=== PATIENT | male | born 1960 | race Caucasian/White ===

== ENCOUNTER 2022-08-25 10:20 | Outpatient (OUT) | payer OTHER, MEDICAID, SELFPAY ==
[2022-08-25 10:34] LABS: Basophils Absolute Auto 0.1 10^3/uL (0.0-0.1); Basophils Percent Auto 0.5 % (0.2-2.0); Eosinophils Absolute Auto 0.5 10^3/uL (0.0-0.7); Eosinophils Percent Auto 4.6 % (0.9-7.0); Hematocrit 46.1 % (42.0-54.0); Hemoglobin 15.4 g/dL (14.0-18.0); Immature Granulocytes Abs Auto 0.07 10^3/uL (0.00-0.03); Immature Granulocytes Pct Auto 0.7 % (0.0-0.5); Lymphocytes Absolute Auto 2.7 10^3/uL (1.2-3.8); Lymphocytes Percent Auto 26.4 % (20.5-60.0); Mean Corpuscular HGB Conc 33.4 g/dL (29.9-35.2); Mean Corpuscular Hemoglobin 28.7 pg (25.9-34.0); Mean Corpuscular Volume 85.8 fL (80.0-94.0); Mean Platelet Volume 9.5 fL (9.5-13.5); Monocytes Absolute Auto 1.1 10^3/uL (0.3-0.8); Monocytes Percent Auto 10.6 % (1.7-12.0); Neutrophils Absolute Auto 5.9 10^3/uL (1.4-6.5); Neutrophils Percent Auto 57.2 % (43.0-75.0); Platelet Count 266 10^3/uL (150-450); Red Blood Count 5.37 10^6/uL (4.70-6.10); Red Cell Distribution Width 13.1 % (11.0-15.0); White Blood Count 10.2 10^3/uL (4.0-11.0)
[2022-08-25 10:43] LABS: Estimated Average Glucose 280 mg/dL; Glycohemoglobin A1C 11.4 % (4.5-6.2)
[2022-08-25 11:43] LABS: Alanine Aminotransferase 149 U/L (16-63); Albumin Globulin Ratio 0.9; Albumin Level 3.6 g/dL (3.4-5.0); Alkaline Phosphatase 116 U/L (46-116); Anion Gap 16.8; Aspartate Amino Transferase 68 U/L (15-37); BUN Creatinine Ratio 23.8; Bilirubin Total 0.4 mg/dL (0.2-1.0); Calcium 9.6 mg/dL (8.5-10.1); Carbon Dioxide 26.7 mmol/L (21.0-32.0); Chloride 102 mmol/L (98-107); Chol HDL Ratio 4.8; Cholesterol 171 mg/dL (<=200); Estimated GFR (African America >60 (>=60); Estimated GFR (Non-African Ame >60 (>=60); Glucose 315 mg/dL (74-106); HDL Cholesterol 36 mg/dL (40-60); Potassium 4.5 mmol/L (3.5-5.1); Sodium 141 mmol/L (136-145); Total Protein 7.6 g/dL (6.4-8.2); Triglycerides 244 mg/dL (<=150); VLDL CHOLESTEROL 48.8 mg/dL
== END 2022-08-25 10:21 | disposition home or self-care (01) ==
LOC: LAB 10:20
PROVIDERS: PCP Physician Assistant; Visit Provider Physician Assistant
DX: E11.9 Type 2 diabetes mellitus without complications (principal)
CPT/HCPCS: 36415; 80053; 80061; 83036; 85025

== ENCOUNTER 2022-09-03 17:33 | Emergency (ER) | payer OTHER, MEDICAID, SELFPAY ==
[2022-09-03 17:38] VITALS: BP 160/98; PULSE 97; RESP 20; TEMP 37.1; O2SAT 98; BMI 48.1
--- NOTE | 2022-09-03 17:45 | XR_ITS ---
The [address] [address] Patient Name: RAJNI VILLARREAL MRN: [id number] date: 1960 Sex: M Assigned Patient Location: ER Current Patient Location: ER Accession/Order Number: [id number] Exam Date: 09/03/2022 18:05 Report Date: 09/03/2022 18:36 At the request of: MATHEUS ALLEN Procedure: XR foot RT min 3V PROCEDURE: XR foot RT min 3V COMPARISON: None. HISTORY: injury c/o pain FINDINGS: BONES:No fracture, acute abnormality, or significant arthropathy. SOFT TISSUES:Negative. No visible soft tissue swelling. EFFUSION:None visible. OTHER: Negative. XR/XR foot RT min 3V IMPRESSION: No acute radiographic abnormality Electronically authenticated by: PILLO FUNEZ Date: 09/03/2022 18:36
--- NOTE | 2022-09-03 18:33 | ED.LOWEXI1 ---
Documented by User: Meera Quinn 09/03/22 19:22 HPI - Extremity Injury (Lower) General Chief Complaint: Extremity Injury, Lower Stated Complaint: TOE PAIN, TOE NAIL Time Seen by Provider: 09/03/22 18:31 Source: patient Mode of arrival: Wheelchair Limitations: no limitations History of Present Illness HPI Narrative: 61 year old male presents to the ED for pain to his right foot, great toe s/p injury today. He states his family member stepped on his foot. Denies fever, chills, N/T. Rates his pain 6/10 at this time. Related Data Previous Rx's Medication Instructions Recorded cephalexin 500 mg capsule 500 mg PO TID 7 days #21 caps 09/03/22 Allergies Allergy/AdvReac Type Severity Reaction Status Date / Time No Known Drug Allergies Allergy Verified 09/03/22 17:37 Review of Systems ROS Constitutional Denies: fever or chills Cardiovascular Denies: chest pain Respiratory Denies: shortness of breath Musculoskeletal Reports: extremity pain (Right foot, great toe pain) Integumentary/Breast Denies: rash, itching or redness PFSH PFSH Social History Smoking status: Former smoker Exam Constitutional Vital Signs, click to edit/add: Last Vital Signs Temp 98.8 F 09/03/22 17:38 Pulse 97 H 09/03/22 17:38 Resp 20 09/03/22 17:38 BP 160/98 H 09/03/22 17:38 Pulse Ox 98 09/03/22 17:38 O2 Del Method Room Air 09/03/22 17:38 Common normals: no apparent distress and oriented x3 General appearance: cooperative; not in distress Chest Chest: symmetrical chest wall rise Respiratory Common normals: normal respiratory effort Effort & inspection: symmetric chest movement Cardio Common normals: regular rate Peripheral pulses: posterior tibial pulses present and dorsalis pedis pulses present Extremity Right lower extremity: foot and digits (Tenderness across top of right foot. No erythema, bruising, or swelling) Right foot and digits: inspection (Toenails abn thick, long, discolored; consistent with fungal changes.) and neurovascular exam (Distal sensation intact.) Course Vital Signs Vital signs: Vital Signs Temperature 98.8 F 09/03/22 17:38 Pulse Rate 97 H 09/03/22 17:38 Respiratory Rate 20 09/03/22 17:38 Blood Pressure 160/98 H 09/03/22 17:38 Pulse Oximetry 98 09/03/22 17:38 Oxygen Delivery Method Room Air 09/03/22 17:38 Temperature 98.8 F 09/03/22 17:38 Pulse Rate 97 H 09/03/22 17:38 Respiratory Rate 20 09/03/22 17:38 Blood Pressure 160/98 H 09/03/22 17:38 Pulse Oximetry 98 09/03/22 17:38 Oxygen Delivery Method Room Air 09/03/22 17:38 MDM - Extremity Injury (Lower) MDM Narrative Medical decision making narrative: X-ray of the right foot was negative for acute findings. He is concerned he is developing an infection to the distal great toe due to the injury. A prescription was provided for Keflex. No paronychia was noted. Pt was told previously to follow up with podiatry regarding his nail issues; he has not been able to follow up. He was encouraged to follow up with his pcp and podiatry for a recheck, further evaluation and treatment. Imaging Data X-ray foot: Radiologist's impression: PROCEDURE: XR foot RT min 3V ? COMPARISON: None. ? HISTORY: injury c/o pain ? FINDINGS: BONES:No fracture, acute abnormality, or significant arthropathy. SOFT TISSUES:Negative. No visible soft tissue swelling. EFFUSION:None visible. OTHER: Negative. ? XR/XR foot RT min 3V IMPRESSION: ? No acute radiographic abnormality ? ? Electronically authenticated by: GARETT FUNEZ ? Date: 09/03/2022? 18:36 Discharge Plan Discharge Chief Complaint: Extremity Injury, Lower Clinical Impression: Contusion of foot Patient Disposition: Home, Self-Care Time of Disposition Decision: 18:47 Condition: Good Mode of Transportation: Private Vehicle Prescriptions / Home Meds: New cephalexin 500 mg capsule 500 mg PO TID 7 Days Qty: 21 0RF Instructions: Cellulitis (ED), Foot Contusion (ED) Stand Alone Forms: Portal Instructions Referrals: Misbah Lujan MD [Physician] - 1 week Raul Kline [Primary Care Provider] - 1 week Discharge Date/Time: 09/03/22 19:03 Documented by User: Gene Sharpe MD 09/03/22 19:52 HPI - Extremity Injury (Lower) General Chief Complaint: Extremity Injury, Lower Stated Complaint: TOE PAIN, TOE NAIL Time Seen by Provider: 09/03/22 18:31 Related Data Previous Rx's Medication Instructions Recorded cephalexin 500 mg capsule 500 mg PO TID 7 days #21 caps 09/03/22 Allergies Allergy/AdvReac Type Severity Reaction Status Date / Time No Known Drug Allergies Allergy Verified 09/03/22 17:37 PFSH PFSH Social History Smoking status: Former smoker Exam Constitutional Vital Signs, click to edit/add: Last Vital Signs Temp 98.8 F 09/03/22 17:38 Pulse 97 H 09/03/22 17:38 Resp 20 09/03/22 17:38 BP 160/98 H 09/03/22 17:38 Pulse Ox 98 09/03/22 17:38 O2 Del Method Room Air 09/03/22 17:38 Course Vital Signs Vital signs: Vital Signs Temperature 98.8 F 09/03/22 17:38 Pulse Rate 97 H 09/03/22 17:38 Respiratory Rate 20 09/03/22 17:38 Blood Pressure 160/98 H 09/03/22 17:38 Pulse Oximetry 98 09/03/22 17:38 Oxygen Delivery Method Room Air 09/03/22 17:38 Temperature 98.8 F 09/03/22 17:38 Pulse Rate 97 H 09/03/22 17:38 Respiratory Rate 20 09/03/22 17:38 Blood Pressure 160/98 H 09/03/22 17:38 Pulse Oximetry 98 09/03/22 17:38 Oxygen Delivery Method Room Air 09/03/22 17:38 MDM - Extremity Injury (Lower) MDM Narrative Medical decision making narrative: X-ray of the right foot was negative for acute findings. He is concerned he is developing an infection to the distal great toe due to the injury. A prescription was provided for Keflex. No paronychia was noted. Pt was told previously to follow up with podiatry regarding his nail issues; he has not been able to follow up. He was encouraged to follow up with his pcp and podiatry for a recheck, further evaluation and treatment. I, Dr Sharpe, have reviewed the above progress note and course of action in the ER; agree with the above. I have personally seen and evaluated this patient, gone over history and physical, and discussed disposition and treatment plan with the patient. Discharge Plan Discharge Chief Complaint: Extremity Injury, Lower Clinical Impression: Contusion of foot Patient Disposition: Home, Self-Care Time of Disposition Decision: 18:47 Condition: Good Mode of Transportation: Private Vehicle Prescriptions / Home Meds: New cephalexin 500 mg capsule 500 mg PO TID 7 Days Qty: 21 0RF Instructions: Cellulitis (ED), Foot Contusion (ED) Stand Alone Forms: Portal Instructions Referrals: Misbah Lujan MD [Physician] - 1 week Raul Kline [Primary Care Provider] - 1 week Discharge Date/Time: 09/03/22 19:03
== END 2022-09-03 19:03 | disposition home or self-care (01) ==
PROVIDERS: Emergency Provider Emergency Medicine; PCP Physician Assistant
DX: S90.31XA Contusion of right foot, initial encounter (principal); Z87.891 Personal history of nicotine dependence; W50.0XXA Accidental hit or strike by another person, initial encounter
CPT/HCPCS: 73630; 99283

== ENCOUNTER 2022-09-12 08:22 | Emergency (ER) | payer OTHER, MEDICAID, SELFPAY ==
[2022-09-12 08:26] VITALS: BP 191/114; PULSE 90; RESP 24; TEMP 36.6; O2SAT 96; BMI 48.1
--- NOTE | 2022-09-12 08:41 | CT_ITS ---
[address] [address] Patient Name: RAJNI VILLARREAL MRN: [id number] date: 1960 Sex: M Assigned Patient Location: ER Current Patient Location: Accession/Order Number: [id number] Exam Date: 09/12/2022 09:42 Report Date: 09/12/2022 10:20 At the request of: MATHEUS ALLEN Procedure: CT abdomen pelvis w con EXAMINATION: CT abdomen pelvis w con HISTORY: abd pain ; acute upper abdominal pain COMPARISON: No relevant comparison available. TECHNIQUE: Axial, Coronal, and Sagittal images were obtained without and/or with IV contrast as indicated by examination type. Dose reduction techniques were achieved by using automated exposure control and/or adjustment of mA and/or kV according to patient size and/or use of iterative reconstruction technique. FINDINGS: LUNG BASES: No visible pulmonary or pleural disease. LIVER: Fatty infiltration of liver. There is BILIARY: No dilatation or calcification. PANCREAS: No lesion, fluid collection, or abnormal duct dilatation. SPLEEN: No enlargement or focal lesion. ADRENALS: No mass or enlargement. KIDNEYS: A few small cysts within left kidney. No mass, obstruction, or calcification. BOWEL/MESENTERY: Several fluid-filled mildly distended loops of small bowel, up to 2.8 cm in diameter, within anterior pelvis with mild surrounding edema. No wall thickening or appreciable obstruction. Trace amount of free fluid scattered within the mesentery, likely edematous. No free air. Prior sigmoid resection and anastomosis. AORTA/VASCULAR: No aneurysm or dissection. RETROPERITONEUM: No mass or adenopathy. LYMPH NODES: No adenopathy. URINARY BLADDER: No visible focal wall thickening, lesion, or calculus. PELVIC ORGANS: No visible mass. Pelvic organs appropriate for patient age. ABDOMINAL WALL: No mass or hernia. BONES: No bony lesion or fracture. OTHER: Negative. CT/CT abdomen pelvis w con IMPRESSION: 1.Suspect enteritis or local ileus involving middistal small bowel within the anterior pelvis. No appreciable obstruction or mass. 2.Marked fatty infiltration of liver. Electronically authenticated by: LIZ SMART Date: 09/12/2022 10:20
--- NOTE | 2022-09-12 08:42 | ED.GENADUL1 ---
HPI - General Adult General Chief complaint: Abdominal Pain Stated complaint: ABDOMINAL PAIN Time Seen by Provider: 09/12/22 08:39 Source: patient Mode of arrival: ambulance Limitations: no limitations History of Present Illness HPI narrative: Patient is a 61-year-old male who is presenting to the Emergency Room with chief complaint of diffuse abdominal pain ongoing since yesterday morning. Patient has been passing flatulence and having soft stool, the patient's pain has been constant, but the pain wave 7 intermittent since yesterday morning/afternoon. Patient had significant abdominal surgery, patient has multiple scars to his abdomen. Patient has a history of diabetes. Patient was at home by himself. No fall, no trauma. No fever or chills. No chest pain or shortness of breath. No other acute complaints. . Patient came in by EMS. Patient was a home by himself. . All systems are negative except as noted/marked. All systems reviewed and otherwise negative. . Nurses note and vital signs reviewed and patient is not hypoxic. General: The patient appears well and in no apparent distress. Patient is resting comfortably on cart. Patient is not toxic, lethargic, or listless Skin: Warm, dry, no pallor noted. There is no rash noted. No petechiae, purpura. Head: Normocephalic, atraumatic Eye: Normal conjunctiva, no drainage, EOMI. PERRL Ears, Nose, Mouth, and Throat: oral mucosa is moist. Nares patent. Mouth without vesicles. Cardiovascular: Regular Rate and Rhythm, no murmur, gallop, rub Respiratory: Patient is in no distress, no accessory muscle use, lungs are clear to auscultation, no wheezing, rales or rhonchi Back: non-tender, no CVA tenderness bilaterally to percussion. No CT LS midline pain GI: soft, Morbidly obese, patient has significant abdominal scars, including 1 large midline abdominal scar; diffuse moderate no tenderness to palpation, No flank pain bilateral, no pulsatile masses appreciated. No rebound, mild guarding, NO rigidity noted. No flank pain bilateral, No distention Musculoskeletal: Patient has full range of motion of all of the extremities, no motor, sensory, or focal neurological deficits Neurological: A&O x3, normal speech Psychiatric: Cooperative Related Data Home Medications Medication Instructions Recorded Confirmed allopurinol 100 mg tablet 100 mg PO Q12H 09/12/22 09/12/22 dulaglutide 0.75 mg/0.5 mL 0.75 mg subcut .weekly 09/12/22 09/12/22 subcutaneous pen injector ([facility]) gabapentin 600 mg tablet 600 mg PO TID 09/12/22 09/12/22 lisinopril 10 mg tablet 10 mg PO DAILY 09/12/22 09/12/22 meloxicam 15 mg tablet 15 mg PO DAILY 09/12/22 09/12/22 metformin 1,000 mg tablet 1,000 mg PO BID 09/12/22 09/12/22 oxybutynin chloride 15 mg 15 mg PO DAILY 09/12/22 09/12/22 tablet,extended release 24 hr Previous Rx's Medication Instructions Recorded cephalexin 500 mg capsule 500 mg PO TID 7 days #21 caps 09/03/22 dicyclomine 20 mg tablet 20 mg PO TID PRN abdominal pain #7 09/12/22 tabs ondansetron 4 mg disintegrating 4 mg PO Q4H PRN nausea and 09/12/22 tablet vomiting 3 days #6 tabs Allergies Allergy/AdvReac Type Severity Reaction Status Date / Time No Known Drug Allergies Allergy Verified 09/03/22 17:37 PFSH PFSH Social History Smoking status: Former smoker Exam Constitutional Vital Signs, click to edit/add: Last Vital Signs Temp 97.8 F 09/12/22 08:26 Pulse 78 09/12/22 12:02 Resp 16 09/12/22 12:02 BP 139/108 H 09/12/22 12:02 Pulse Ox 95 09/12/22 12:02 O2 Del Method Room Air 09/12/22 12:02 Course Vital Signs Vital signs: Vital Signs Temperature 97.8 F 09/12/22 08:26 Pulse Rate 90 09/12/22 08:26 Respiratory Rate 24 09/12/22 08:26 Blood Pressure 191/114 H 09/12/22 08:26 Pulse Oximetry 96 09/12/22 08:26 Oxygen Delivery Method Room Air 09/12/22 08:26 Temperature 97.8 F 09/12/22 08:26 Pulse Rate 78 09/12/22 12:02 Respiratory Rate 16 09/12/22 12:02 Blood Pressure 139/108 H 09/12/22 12:02 Pulse Oximetry 95 09/12/22 12:02 Oxygen Delivery Method Room Air 09/12/22 12:02 Medical Decision Making MDM Narrative Medical decision making narrative: Patient's lab work, abdominal CT shows no significant findings or changes. Patient feels better after medication given and IV fluids. Patient will follow-up with PCP. Patient had educational speech at bedside on scar tissue, possible adhesions, future obstruction. Patient had mentioned the surgeon wanted to go back into his abdomen because he had significant amount of scar tissue and they wanted to break the adhesions. Patient had this educated and discussed with him and explained to him again, patient appears to understand. Patient states his surgeon and gastrointestinal physicians are at [facility], he will call in the follow-up. Patient sent home with Zofran and Bentyl use. No questions at discharge. She did official report for CT of the abdomen and pelvis, suspect enteritis, questionable ileus, education and ileus and discharge papers were given to patient discussing ileus. Patient will continue increase fluids only this weekend and use medication as needed. Patient is aware of no bowel movement or passing gas within 12-24 hours, patient would need to return to the Emergency Room. Patient understands discharge instructions and plan Medical Records Medical records reviewed: Yes I reviewed the patient's medical records Lab Data Lab results reviewed: Yes I reviewed the patient's lab results Labs: Lab Results 09/12/22 09/12/22 Range/Units 08:55 10:05 WBC 12.3 H (4.0-11.0) 10^3/uL RBC 5.52 (4.70-6.10) 10^6/uL Hgb 15.8 (14.0-18.0) g/dL Hct 47.1 (42.0-54.0) % MCV 85.3 (80.0-94.0) fL MCH 28.6 (25.9-34.0) pg MCHC 33.5 (29.9-35.2) g/dL RDW 12.8 (11.0-15.0) % Plt Count 272 (150-450) 10^3/uL MPV 9.4 L (9.5-13.5) fL Neut % (Auto) 71.7 (43.0-75.0) % Lymph % (Auto) 14.9 L (20.5-60.0) % [place] % (Auto) 9.4 (1.7-12.0) % Eos % (Auto) 3.2 (0.9-7.0) % Baso % (Auto) 0.3 (0.2-2.0) % Neut # (Auto) 8.8 H (1.4-6.5) 10^3/uL Lymph # (Auto) 1.8 (1.2-3.8) 10^3/uL [place] # (Auto) 1.2 H (0.3-0.8) 10^3/uL Eos # (Auto) 0.4 (0.0-0.7) 10^3/uL Baso # (Auto) 0.0 (0.0-0.1) 10^3/uL Abs Immat Gran (auto) 0.06 H (0.00-0.03) 10^3/uL Imm/Tot Granulo (auto) 0.5 (0.0-0.5) % Sodium 136 (136-145) mmol/L Potassium 4.2 (3.5-5.1) mmol/L Chloride 101 (98-107) mmol/L Carbon Dioxide 29.4 (21.0-32.0) mmol/L Anion Gap 9.8 BUN 23.0 H (7.0-18.0) mg/dL Creatinine 0.83 (0.70-1.30) mg/dL Est GFR ( Amer) >60 (>=60) Est GFR (Non-Af Amer) >60 (>=60) BUN/Creatinine Ratio 27.7 Glucose 331 H (74-106) mg/dL Lactate 1.8 (0.4-2.0) mmol/L Calcium 8.8 (8.5-10.1) mg/dL Total Bilirubin 0.5 (0.2-1.0) mg/dL AST 89 H (15-37) U/L ALT 180 H (16-63) U/L Alkaline Phosphatase 107 (46-116) U/L Troponin I High Sens 12.3 (4.0-76.1) pg/mL Total Protein 7.4 (6.4-8.2) g/dL Albumin 3.5 (3.4-5.0) g/dL Globulin 3.9 g/dL Albumin/Globulin Ratio 0.9 Lipase 141.0 (73.0-393.0) U/L Urine Color Yellow (YELLOW) Urine Clarity Clear (CLEAR) Urine pH 7.0 (5.0-9.0) Ur Specific [place] 1.010 (1.005-1.025) Urine Protein Negative (NEG/TRACE) mg/dL Urine Glucose (UA) >=1000 A (NEGATIVE) mg/dL Urine Ketones Negative (NEGATIVE) mg/dL Urine Occult Blood Negative (NEGATIVE) Urine Nitrite Negative (NEGATIVE) Urine Bilirubin Negative (NEGATIVE) Urine Urobilinogen 0.2 (0.2-1.0) EU/dL Ur Leukocyte Esterase Negative (NEGATIVE) ECG Data Attestation: I personally reviewed and interpreted this ECG as follows: Interpretation: EKG interpretation. Normal sinus rhythm at 90 beats a minute. Normal axis deviation. No acute ST elevation, no acute ectopy. QTC of 430. Artifact noted. Discharge Plan Discharge Chief Complaint: Abdominal Pain Clinical Impression: Enteritis, Abdominal pain Patient Disposition: Home, Self-Care Condition: Good Prescriptions / Home Meds: New dicyclomine 20 mg tablet 20 mg PO TID PRN (Reason: abdominal pain) Qty: 7 0RF ondansetron 4 mg tablet,disintegrating 4 mg PO Q4H PRN (Reason: nausea and vomiting) 3 Days Qty: 6 0RF No Action cephalexin 500 mg capsule 500 mg PO TID 7 Days Qty: 21 0RF allopurinol 100 mg tablet 100 mg PO Q12H Trulicity 0.75 mg/0.5 mL pen injector 0.75 mg SUBCUT .weekly gabapentin 600 mg tablet 600 mg PO TID metformin 1,000 mg tablet 1,000 mg PO BID oxybutynin chloride 15 mg tablet extended release 24hr 15 mg PO DAILY meloxicam 15 mg tablet 15 mg PO DAILY lisinopril 10 mg tablet 10 mg PO DAILY Instructions: Abdominal Pain (ED), Enteritis (ED) Additional Instructions: Increase fluids for the next few days. Education on ileus was given to you for educational purposes only. Increase fluids. We had a discussion about scar tissue secondary to abdominal surgeries and prevention of obstruction in the future. Follow-up with your surgeon and gastrointestinal physicians. Use Zofran and Bentyl needed for nausea and belly cramping Stand Alone Forms: Portal Instructions Referrals: Raul Kline [Primary Care Provider] - 1 week
[2022-09-12 09:03] LABS: Basophils Percent Auto 0.3 % (0.2-2.0); Eosinophils Absolute Auto 0.4 10^3/uL (0.0-0.7); Eosinophils Percent Auto 3.2 % (0.9-7.0); Hematocrit 47.1 % (42.0-54.0); Hemoglobin 15.8 g/dL (14.0-18.0); Immature Granulocytes Abs Auto 0.06 10^3/uL (0.00-0.03); Immature Granulocytes Pct Auto 0.5 % (0.0-0.5); Lymphocytes Absolute Auto 1.8 10^3/uL (1.2-3.8); Lymphocytes Percent Auto 14.9 % (20.5-60.0); Mean Corpuscular HGB Conc 33.5 g/dL (29.9-35.2); Mean Corpuscular Hemoglobin 28.6 pg (25.9-34.0); Mean Corpuscular Volume 85.3 fL (80.0-94.0); Mean Platelet Volume 9.4 fL (9.5-13.5); Monocytes Absolute Auto 1.2 10^3/uL (0.3-0.8); Monocytes Percent Auto 9.4 % (1.7-12.0); Neutrophils Absolute Auto 8.8 10^3/uL (1.4-6.5); Neutrophils Percent Auto 71.7 % (43.0-75.0); Platelet Count 272 10^3/uL (150-450); Red Blood Count 5.52 10^6/uL (4.70-6.10); Red Cell Distribution Width 12.8 % (11.0-15.0); White Blood Count 12.3 10^3/uL (4.0-11.0)
[2022-09-12] MEDS: ONDANSETRON PF 4 MG/2 ML VIAL IV (09:17)
[2022-09-12] MEDS: 0.9 % SODIUM CHLORIDE 1,000 ML 999 ML IV (09:17)
[2022-09-12 09:24] LABS: Alanine Aminotransferase 180 U/L (16-63); Albumin Globulin Ratio 0.9; Albumin Level 3.5 g/dL (3.4-5.0); Alkaline Phosphatase 107 U/L (46-116); Anion Gap 9.8; Aspartate Amino Transferase 89 U/L (15-37); BUN Creatinine Ratio 27.7; Bilirubin Total 0.5 mg/dL (0.2-1.0); Calcium 8.8 mg/dL (8.5-10.1); Carbon Dioxide 29.4 mmol/L (21.0-32.0); Chloride 101 mmol/L (98-107); Estimated GFR (African America >60 (>=60); Estimated GFR (Non-African Ame >60 (>=60); Globulin 3.9 g/dL; Glucose 331 mg/dL (74-106); Potassium 4.2 mmol/L (3.5-5.1); Sodium 136 mmol/L (136-145); Total Protein 7.4 g/dL (6.4-8.2); Troponin I High Sensitivity 12.3 pg/mL (4.0-76.1)
[2022-09-12] MEDS: MORPHINE SULFATE 4 MG/ML VIAL 8 MG IV (09:29)
[2022-09-12 10:08] VITALS: BP 162/91; PULSE 79; RESP 16; O2SAT 94
[2022-09-12 11:00] VITALS: PULSE 82; RESP 16; O2SAT 96
[2022-09-12 11:13] LABS: Lactate/Lactic Acid 1.8 mmol/L (0.4-2.0)
--- NOTE | 2022-09-12 11:48 | ECG_ITS ---
The [facility] Test Date: 2022-09-12 Pat Name: RAJNI VILLARREAL Department: Room: - Gender: Male Eyeletter: : 1960 Requested By: Order Number: [id number] Reading MD: DEEPA DOUGLASS Measurements Intervals [place] Rate: 90 P: 35 NM: 184 QRS: 60 QRSD: 102 T: 40 QT: 382 QTc: 430 Interpretive Statements 1100 Sinus rhythm 8102 Low QRS voltage in chest leads 9120 atypical ECG No previous ECG available for comparison Electronically Signed On 09-14-2022 18:21:41 EDT by DEEPA DOUGLASS
[2022-09-12 12:02] VITALS: BP 139/108; PULSE 78; RESP 16; O2SAT 95
[2022-09-12 12:24] LABS: Bilirubin Urine NEGATIVE (NEGATIVE); Blood Urine NEGATIVE (NEGATIVE); Clarity Urine CLEAR (CLEAR); Color Urine YELLOW (YELLOW); Glucose Urine UA >=1000 mg/dL (NEGATIVE); Ketones Urine NEGATIVE (NEGATIVE); Leukocyte Esterase Urine NEGATIVE (NEGATIVE); Nitrite Urine NEGATIVE (NEGATIVE); Protein Urine NEGATIVE (NEG/TRACE); Urobilinogen Urine 0.2 EU/dL (0.2-1.0)
[2022-09-12 12:31] LABS: Bacteria Urine NONE SEEN #/HPF (NONE SEEN); Cast Seen? NONE SEEN #/LPF (NONE SEEN); Crystals Seen? None Seen #/HPF (None Seen); Mucus Urine NONE SEEN (NONE SEEN); RBC Urine 0-2 #/HPF (0-2); Squamous Epithelial Cell Urine RARE #/LPF (NONE/RARE); WBC Urine NONE SEEN #/HPF (NONE SEEN)
== END 2022-09-12 12:43 | disposition home or self-care (01) ==
PROVIDERS: Emergency Provider Emergency Medicine; PCP Physician Assistant
DX: K52.9 Noninfective gastroenteritis and colitis, unspecified (principal); R10.9 Unspecified abdominal pain; E11.9 Type 2 diabetes mellitus without complications; Z79.4 Long term (current) use of insulin; Z79.84 Long term (current) use of oral hypoglycemic drugs; Z79.899 Other long term (current) drug therapy; Z87.891 Personal history of nicotine dependence
CPT/HCPCS: 36415; 74177; 80053; 81001; 83605; 83690; 84484; 85025; 93005; 96374; 96375; 99285; Q9967

== ENCOUNTER 2022-10-14 13:24 | Outpatient (OUT) | payer OTHER, MEDICAID, SELFPAY ==
--- NOTE | 2022-10-14 13:33 | XR_ITS ---
The [address] [address] Patient Name: RAJNI VILLARREAL MRN: [id number] date: 1960 Sex: M Assigned Patient Location: [facility] Current Patient Location: [facility] Accession/Order Number: [id number] Exam Date: 10/14/2022 13:40 Report Date: 10/14/2022 14:11 At the request of: DANIELA PETER Procedure: XR shoulder RT min 2V PROCEDURE: XR shoulder RT min 2V HISTORY: Right shoulder Pain M25.511 ; chronic right shoulder pain and limited range of motion, right hand swelling COMPARISON: None. FINDINGS: BONES:Degenerative osteophytes along the inferior articular margin of the humeral head and glenoid. Suspect mild joint space narrowing. Mild degenerative changes acromioclavicular joint. No fracture, dislocation, bone lesion. SOFT TISSUES:No visible soft tissue swelling. EFFUSION:None visible. OTHER: Negative. XR/XR shoulder RT min 2V IMPRESSION: 1. No acute bone abnormality. 2. Moderate degenerative changes of the glenohumeral joints favoring osteoarthritis. 2. Mild degenerative change of the acromioclavicular joint which may predispose to rotator cuff injury. Electronically authenticated by: LIZ SMART Date: 10/14/2022 14:11
== END 2022-10-14 13:25 | disposition home or self-care (01) ==
LOC: RAD 13:26
PROVIDERS: PCP Physician Assistant; Visit Provider Physician Assistant
DX: M25.511 Pain in right shoulder (principal)
CPT/HCPCS: 73030

== ENCOUNTER 2022-11-13 13:27 | Outpatient (OUT) | payer MEDICAID, SELFPAY ==
--- NOTE | 2022-11-13 13:35 | MR_ITS ---
[place] [id number] Patient Name: RAJNI VILLARREAL MRN: [id number] date: 1960 Sex: M Assigned Patient Location: [facility] Current Patient Location: [facility] Accession/Order Number: [id number] Exam Date: 11/13/2022 13:50 Report Date: 11/13/2022 17:30 At the request of: DANIELA PETER Procedure: MR shoulder RT wo con MR shoulder RT wo con, 11/13/2022 1:50 PM EDT INDICATION: Right Shoulder Pain M25.511 COMPARISON: X-ray of right shoulder dated 10/14/2022 TECHNIQUE: Multiplanar and multisequential MR images of the right shoulder were obtained without contrast. FINDINGS: There are moderate hypertrophic degenerative changes of AC joint. There is no os acromiale. No Hill-Sachs is noted. No acute fracture or dislocation is noted. Enthesopathy cysts at the insertion of the supraspinatus to greater tuberosity is noted. The quadrilateral space and supraspinous notch are unremarkable. The T2 prolongation within the insertional portions of supraspinatus, infraspinatus, subscapularis may suggest tendinosis. The long head of biceps shows intra-articular tendinosis Moderate atrophy of teres minor. No other fatty muscle atrophy is noted. The labrum and right glenohumeral joint show moderate to severe degenerative changes. There is trace intra articular joint effusion. MR/MR shoulder RT wo con IMPRESSION: Supraspinatus, infraspinatus and subscapularis insertional tendinosis. No high-grade tear. Tendinosis of the intra-articular portion of long head of biceps. Moderate to severe degenerative changes of right glenohumeral joint. Moderate atrophy of teres minor. Electronically authenticated by: ANGELLA DUQUE Date: 11/13/2022 17:30
--- NOTE | 2022-11-13 13:36 | XR_ITS ---
The [address] [address] Patient Name: RAJNI VILLARREAL MRN: [id number] date: 1960 Sex: M Assigned Patient Location: [facility] Current Patient Location: [facility] Accession/Order Number: [id number] Exam Date: 11/13/2022 13:40 Report Date: 11/13/2022 13:56 At the request of: DANIELA PETER Procedure: XR foreign body eye EXAMINATION: XR foreign body eye HISTORY: Foreign Body Eye COMPARISON: No relevant comparison available. FINDINGS: ORBITS: Negative for a metallic foreign body. OTHER: Negative. XR/XR foreign body eye IMPRESSION: 1. No metallic foreign body within the orbits. Electronically authenticated by: LIZ SMART Date: 11/13/2022 13:56
== END 2022-11-13 13:28 | disposition home or self-care (01) ==
LOC: RAD 13:28
PROVIDERS: PCP Physician Assistant; Visit Provider Physician Assistant
DX: M25.511 Pain in right shoulder (principal); M51.26 Other intervertebral disc displacement, lumbar region; M77.8 Other enthesopathies, not elsewhere classified; M75.21 Bicipital tendinitis, right shoulder; M62.511 Muscle wasting and atrophy, not elsewhere classified, right shoulder
CPT/HCPCS: 70030; 73221

== ENCOUNTER 2022-11-21 10:10 | Outpatient (OUT) | payer MEDICAID, SELFPAY ==
[2022-11-21 10:45] LABS: Basophils Absolute Auto 0.1 10^3/uL (0.0-0.1); Basophils Percent Auto 0.6 % (0.2-2.0); Eosinophils Absolute Auto 0.5 10^3/uL (0.0-0.7); Eosinophils Percent Auto 5.6 % (0.9-7.0); Hemoglobin 14.9 g/dL (14.0-18.0); Immature Granulocytes Abs Auto 0.02 10^3/uL (0.00-0.03); Immature Granulocytes Pct Auto 0.2 % (0.0-0.5); Lymphocytes Absolute Auto 2.3 10^3/uL (1.2-3.8); Lymphocytes Percent Auto 26.8 % (20.5-60.0); Mean Corpuscular HGB Conc 33.1 g/dL (29.9-35.2); Mean Corpuscular Hemoglobin 28.9 pg (25.9-34.0); Mean Corpuscular Volume 87.2 fL (80.0-94.0); Mean Platelet Volume 9.6 fL (9.5-13.5); Monocytes Percent Auto 11.3 % (1.7-12.0); Neutrophils Absolute Auto 4.8 10^3/uL (1.4-6.5); Neutrophils Percent Auto 55.5 % (43.0-75.0); Platelet Count 252 10^3/uL (150-450); Red Blood Count 5.16 10^6/uL (4.70-6.10); Red Cell Distribution Width 12.9 % (11.0-15.0); White Blood Count 8.6 10^3/uL (4.0-11.0)
[2022-11-21 10:52] LABS: Alanine Aminotransferase 94 U/L (16-63); Albumin Globulin Ratio 0.9; Albumin Level 3.5 g/dL (3.4-5.0); Alkaline Phosphatase 90 U/L (46-116); Anion Gap 10.1; Aspartate Amino Transferase 64 U/L (15-37); BUN Creatinine Ratio 21.6; Bilirubin Total 0.4 mg/dL (0.2-1.0); Carbon Dioxide 29.8 mmol/L (21.0-32.0); Chloride 101 mmol/L (98-107); Chol HDL Ratio 4.8; Cholesterol 181 mg/dL (<=200); Estimated GFR (African America >60 (>=60); Estimated GFR (Non-African Ame >60 (>=60); Globulin 4.1 g/dL; Glucose 223 mg/dL (74-106); HDL Cholesterol 38 mg/dL (40-60); Potassium 3.9 mmol/L (3.5-5.1); Sodium 137 mmol/L (136-145); Total Protein 7.6 g/dL (6.4-8.2); Triglycerides 242 mg/dL (<=150); VLDL CHOLESTEROL 48.4 mg/dL
[2022-11-21 11:06] LABS: Estimated Average Glucose 223 mg/dL; Glycohemoglobin A1C 9.4 % (4.5-6.2)
== END 2022-11-21 10:11 | disposition home or self-care (01) ==
LOC: LAB 10:12
PROVIDERS: PCP Physician Assistant; Visit Provider Physician Assistant
DX: E11.9 Type 2 diabetes mellitus without complications (principal)
CPT/HCPCS: 36415; 80053; 80061; 83036; 85025

== ENCOUNTER 2023-02-26 12:46 | Outpatient (OUT) | payer MEDICAID, SELFPAY ==
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
--- NOTE | 2023-02-26 12:49 | VEIN_ITS ---
Patient Name: RAJNI VILLARREAL MR#: [id number] : 1960 Exam Date: 02/26/2023 Ordering Doctor: MR. DANIELA PETER PA-C RADIOLOGY REPORT PROCEDURE: VC EXT VENOUS REFLUX DANNIE LMTD COMPARISON: None. INDICATIONS: I83.813 Bilateral painful varicose veins TECHNIQUE: Duplex imaging of the lower extremity to assess the deep and superficial venous system for the presence of deep or superficial venous incompetence and to document the location and severity of disease. The study includes evaluation of the great saphenous vein (GSV), anterior accessory saphenous vein (AASV) and small saphenous vein (SSV). Patient scanned in reverse Trendelenburg and standing. FINDINGS: RIGHT LOWER EXTREMITY: Saphenofemoral Junction Reflux: Yes 9.5mm 2.5 sec GSV: Diam (mm) Reflux/ Time (sec) Proximal Thigh 6.9 Yes 1.5 Mid Thigh 5.5 Yes 0.7 Distal Thigh 4.2 Yes 1.9 Prox Calf 3.6 Yes 1.0 Mid Calf 2.3 Yes 0.5 Saphenopopliteal Junction Reflux: 7.0mm Yes 1.2 SSV: Proximal Calf 6.7 Yes 1.5 Mid Calf 4.5 Yes 1.1 AASV: Proximal Thigh 3.5 No Mid Thigh 2.3 No Distal Thigh Thrombi: No acute or chronic thrombus visualized Compressibility: Normal Flow: Normal Preforator: Dist/med calf 2.3mm with 0s reflux. Tech Note: Incompetent GSV. Patent varicose vein mid/med calf 4.0mm with 1.6s reflux. Patent varicose vein medial knee 3.0mm with 0.7s reflux. Patent varicose vein mid/med thigh 4.9mm with 0.9s reflux. LEFT LOWER EXTREMITY: Saphenofemoral Junction Reflux: Yes 16.0 mm 2.6 sec GSV: Diam (mm) Reflux/Time (sec) Proximal Thigh 12.0 Yes 3.0 Mid Thigh 9.2 Yes 3.0 Distal Thigh 9.4 Yes 2.6 Prox Calf 9.5 Yes 1.2 Mid Calf 3.4 Yes 0.8 Saphenopopliteal Junction Relux: 7.4 mm Yes 1.7 SSV: Proximal Calf 5.6 Yes 1.2 Mid Calf 5.2 Yes 1.1 AASV: Proximal Thigh 7.8 Yes 1.4 Mid Thigh 6.2 Yes 1.2 Distal Thigh Thrombi: No acute or chronic thrombus visualized Compressibility: Normal Flow: Normal Oil Dispatcher: Dist/med calf 3.2mm with 1.2s reflux. Tech Note: Incompetent GSV, AASV, and SSV. Patent varicose vein prox/med calf 4.5mm with 1.1s reflux. Patent varicose vein mid/med calf 4.8mm with 1.0s reflux. Patent varicose vein mid/med calf 4.1mm with 1.6s reflux. Patent varicose vein mid/med thigh 5.6mm with 1.1s reflux. CONCLUSION: 1. Moderate venous insufficiency and dilatation right great saphenous vein, bilateral small saphenous veins and left anterior accessory saphenous vein. There is associated saphenofemoral and saphenopopliteal junction reflux 2. Severe venous insufficiency and dilatation left great saphenous vein with saphenofemoral junction reflux 3. Bilateral incompetent varicose veins Dictated by: Abram Sage MD on 02/26/2023 at 14:00 Approved by: Abram Sage MD on 02/26/2023 at 14:02
== END 2023-02-26 12:47 | disposition home or self-care (01) ==
PROVIDERS: PCP Physician Assistant; Visit Provider Physician Assistant
DX: M79.89 Other specified soft tissue disorders (principal)
CPT/HCPCS: 93970; G0463

== ENCOUNTER 2023-03-06 10:58 | Outpatient (OUT) | payer MEDICAID, SELFPAY ==
--- OUTSIDE RECORDS SUMMARY | 2023-03-06 11:02 | XMS_ITS | CCD ---
Author Name Unknown Address [address] [place] [address] Organization [facility] Care Team Providers Care Painter And Decorator Name Role Phone MARY ., DR NIYAH Barton Admitting Unavailable MARY ., DR NIYAH Barton Attending Unavailable RAUL PETER Primary Care Unavailable RAUL PETER Admitting Unavailable RAUL PETER Attending Unavailable RAUL PETER Primary Care Unavailable Hua Huerta Consulting Unavailable RAUL PETER Consulting Unavailable DO Peter You Attending Provider EBENEZER Peter Primary Care Provider Raul Peter Primary Care Unavailable Peter You Attending Unavailab Peter Ayala Admitting Unavailab le Problems Problem Classification Problem Date Documented Date Episodic/Chronic Biliary tract disease (1 source) Calculus of gallbladder without cholecystitis without obstruction; Translations: [CALCU GB W/O CHOLECYST W/O OBST] Onset: 06-01-2022 Episodic Other liver diseases (4 sources) Abnormal levels of other serum enzymes; Translations: [ABNORMAL LEVELS OTHER SERUM ENZYMES] Onset: 05-27-2022 Episodic Spondylosis; intervertebral disc disorders; other back problems (1 source) Cervicalgia; Translations: [Cervicalgia] Onset: 09-24-2022 Episodic Results Test Name Value Interpretation Reference Range Facil ity US SINGLE QUAD RT UPPERon US SINGLE QUAD RT UPPER EXAMINATION: US SINGLE QUAD RT UPPER HISTORY: High enzyme level in serum COMPARISON: No relevant comparison available. TECHNIQUE: Transabdominal evaluation of the right upper quadrant. FINDINGS: LIVER: Increased echogenicity suggestive of fatty infiltration. Color Doppler demonstrates patent hepatic veins. PORTAL VEIN: Duplex Doppler demonstrates normal hepatopetal flow pattern with flow velocity averaging 36 cm/s. GALLBLADDER: Slightly hyper distended gallbladder. Several stones within gallbladder, largest is 1.5 cm. No wall thickening or free fluid. Negative sonographic Virgen's sign. BILIARY: No abnormal dilation or stones. Common bile duct diameter is within normal limits. PANCREASE: No visible mass, abnormal atrophy, or duct dilation. KIDNEY: No hydronephrosis. No visible mass or stones. Size: 10.9 x 6.0 x 6.6 cm IMPRESSION: 1. Cholelithiasis without evidence of acute cholecystitis. 2. Mild fatty infiltration of liver. Electronically authenticated by: HUA HUERTA Date: 2022-05-27 15:43 Normal [facility] Encounters Encounter Date Encounter Type Care Provider Facility Start: 09-24-2022 End: 09-24-2022 ambulatory EBENEZER Peter Work Phone: [facility] Work Phone: Start: 09-24-2022 End: 09-24-2022 Discharged Recurring EBENEZER Peter Work Phone: [facility]-Physical Therapy [facility] Start: 05-27-2022 End: 05-28-2022 ambulatory RAUL PETER Facility:[facility] Start: 10-29-[address] NIYAH HERNANDEZ . Faci lity:[facility]1 Payers Date Payer Category Payer Private Health Insurance [id number] 2022 Self-pay 2022 Medicaid [id number] 1961 Unknown [id number] 1960 Unknown [id number] 1960 Unknown [id number] Unknown [id number] [id number] Social History Date Type Detail Facility Tobacco smoking stat [facility] Unknown if ever smoked [facility] Work Phone: Start: 1960 Sex Assigned At Male F [facility] Evaluation note Note Date & Type Note Facility Evaluation note No assessment information availa ble [facility] Work Phone: Summary Purpose Family History No Family History Records FoundNo Family History Records Found Advance Directives No Advanced Directives Records Found Advance Directive Response Recorded Date/ Time Advance Directives No August 25 1:24pm Chief Complaint and Reason for Visit Chief Complaint V DDD Additional Source Comments (unrecognized sect ion and content) No Status Records FoundNo Status Records Found INFORMATION SOURCE (unrecogn ized section and content) DATE CREATED AUTHOR 06/01/2022 [facility] DATE CREATED AUTHOR AUTHOR'S ORGANIZ ATION 11/22/2022 [facility] Care Teams (unrecognized sec tion and content) Team Status: Active Member Role Status Dates Raul Peter PA-C Primary Care Provider Activ king Team Status: Inactive Member Role Status Dates Peter You , DO Attending Provider Active Raul Peter PA-C Primary Care Provider Activ king Goals (unrecognized section and content) Goals may be documented in a n alternate section FOR RECORDS PERTAINING TO PATIENTS WHO ARE OR HAVE BEEN ENROLLED IN A CHEMICAL DEPENDENCY/SUBSTANCEABUSE PROGRAM, SOME INFORMATION MAY BE OMITTED. This clinical summary was aggregated from multiple sources. Caution should be exercised in using it in the provision of clinical care. This summary normalizes information from multiple sources, and as a consequence, information in this document may materially change the coding, format and clinical context of patient data. In addition, data may be omitted in some cases. CLINICAL DECISIONS SHOULD BE BASED ON THE PRIMARY CLINICAL RECORDS. [facility] [employer] [facility]. provides no warranty or guarantee of the accuracy or completeness of information in this document.
[2023-03-06 11:28] LABS: Basophils Absolute Auto 0.1 10^3/uL (0.0-0.1); Basophils Percent Auto 0.5 % (0.2-2.0); Eosinophils Absolute Auto 0.4 10^3/uL (0.0-0.7); Eosinophils Percent Auto 2.9 % (0.9-7.0); Hemoglobin 15.7 g/dL (14.0-18.0); Immature Granulocytes Abs Auto 0.18 10^3/uL (0.00-0.03); Immature Granulocytes Pct Auto 1.4 % (0.0-0.5); Lymphocytes Absolute Auto 3.2 10^3/uL (1.2-3.8); Lymphocytes Percent Auto 24.2 % (20.5-60.0); Mean Corpuscular HGB Conc 32.7 g/dL (29.9-35.2); Mean Corpuscular Hemoglobin 28.7 pg (25.9-34.0); Mean Corpuscular Volume 87.8 fL (80.0-94.0); Mean Platelet Volume 9.4 fL (9.5-13.5); Monocytes Absolute Auto 1.2 10^3/uL (0.3-0.8); Monocytes Percent Auto 8.9 % (1.7-12.0); Neutrophils Absolute Auto 8.2 10^3/uL (1.4-6.5); Neutrophils Percent Auto 62.1 % (43.0-75.0); Platelet Count 295 10^3/uL (150-450); Red Blood Count 5.47 10^6/uL (4.70-6.10); Red Cell Distribution Width 12.7 % (11.0-15.0); White Blood Count 13.1 10^3/uL (4.0-11.0)
[2023-03-06 12:22] LABS: Estimated Average Glucose 246 mg/dL; Glycohemoglobin A1C 10.2 % (4.5-6.2)
[2023-03-06 13:16] LABS: Alanine Aminotransferase 99 U/L (16-63); Albumin Globulin Ratio 0.8; Albumin Level 3.3 g/dL (3.4-5.0); Alkaline Phosphatase 103 U/L (46-116); Anion Gap 12.5; Aspartate Amino Transferase 35 U/L (15-37); BUN Creatinine Ratio 21.7; Bilirubin Total 0.3 mg/dL (0.2-1.0); Calcium 9.1 mg/dL (8.5-10.1); Chloride 101 mmol/L (98-107); Chol HDL Ratio 3.9; Cholesterol 225 mg/dL (<=200); Estimated GFR (African America >60 (>=60); Estimated GFR (Non-African Ame >60 (>=60); Globulin 4.3 g/dL; Glucose 339 mg/dL (74-106); HDL Cholesterol 57 mg/dL (40-60); Potassium 4.5 mmol/L (3.5-5.1); Sodium 140 mmol/L (136-145); Total Protein 7.6 g/dL (6.4-8.2); Triglycerides 226 mg/dL (<=150); VLDL CHOLESTEROL 45.2 mg/dL
== END 2023-03-06 10:59 | disposition home or self-care (01) ==
LOC: LAB 10:59
PROVIDERS: PCP Physician Assistant; Visit Provider Physician Assistant
DX: E11.9 Type 2 diabetes mellitus without complications (principal)
CPT/HCPCS: 36415; 80053; 80061; 83036; 85025

== ENCOUNTER 2023-04-28 09:00 | Outpatient (OUT) | payer MEDICAID, SELFPAY ==
--- NOTE | 2023-04-28 09:01 | VEIN_ITS ---
[address] [address] Patient Name: RAJNI VILLARREAL MRN: [id number] date: 1960 Sex: M Assigned Patient Location: Current Patient Location: Accession/Order Number: [id number] Exam Date: 04/28/2023 09:03 Report Date: 04/28/2023 09:58 At the request of: PILLO FUNEZ Procedure: VC Endovenous Ablation 1VeinLT EXAMINATION: VC Endovenous Ablation 1Vein left great saphenous vein HISTORY: I83.813 Bilateral painful varicose veins COMPARISON: No relevant comparison available. TECHNIQUE: The risks and benefits of the procedure had been previously discussed, and were rediscussed at length. Informed written consent was obtained. Anna Keller and Geovanny Aguilar assisted. Time out procedure was performed. The left lower extremity was prepared and draped in the usual sterile fashion to allow knee flexion in the sterile field. Duplex ultrasound probe was draped in a sterile cover, sterile transmission gel was used. Venous mapping was performed with the areas of dilation and large tributaries marked. The total length was 41 cm from the entry mid calf to 3 cm below the saphenofemoral junction. The diameter of the greater saphenous vein ranged from 8-10 mm. A 30 gauge needle and 1% buffered lidocaine was used to anesthetize the entry site. A 4 mm incision was made with a scalpel and the saphenous vein was entered percutaneously under direct ultrasound guidance with a micropuncture set, a single stick was successful in gaining access. A micro-guide wire was inserted and the needle removed. A micro-set including a dilator was inserted over the microwire and the needle and dilator were removed. A 0.018 guide wire was inserted through the micro-set and threaded through the saphenous vein to the saphenofemoral junction. The dilator was removed and an introducer sheath was inserted over the wire until the end of the sheath entered the saphenofemoral junction. The dilator and wire were removed and the 600 micron fiber was introduced and placed and positioned so that it extended beyond the sheath and was 3 cm peripheral to the saphenofemoral femoral junction. Final position of the fiber was determined by ultrasound guidance and duplex imaging. Tumescent anesthetic was delivered by ultrasound guidance. 275 cc of fluid was delivered along the entire course of the saphenous vein. The solution consisted of 1000 cc of normal saline with 40 mL of 1% lidocaine and 20 mL of sodium bicarbonate. A final positioning check was made. The energy source was turned on by means of the foot pedal and the fiber and sheath were withdrawn. The total number of Joules delivered was 2129. The laser was active for 266 seconds under continuous pulse, average laser use of 8 J. Laser start time 9:46 AM 04/28/23 . Laser stop time 9:52 AM 04/28/23. A duplex ultrasound revealed compressibility and flow at the saphenofemoral junction immediately after the procedure. Hemostasis at the access site was achieved. The skin incision of the saphenous vein was closed with a 4 x 4. A compression stocking was applied. Postop instructions were given. A follow up appointment was recommended and scheduled. The patient tolerated the procedure well and was discharged in good condition . VEIN/VC Endovenous Ablation 1VeinLT IMPRESSION: Technically successful endovenous laser ablation of the left great saphenous vein Electronically authenticated by: PILLO FUNEZ Date: 04/28/2023 09:58
[2023-04-28] MEDS: LIDOCAINE HCL 1% 100 MG/10 ML MDV INJ (09:33)
[2023-04-28] MEDS: 0.9 % SODIUM CHLORIDE 500 ML, LIDOCAINE HCL 20 ML, SODIUM BICARBONATE 10 MEQ INJ (09:34)
== END 2023-04-28 09:01 | disposition home or self-care (01) ==
LOC: VC 09:00
PROVIDERS: PCP Physician Assistant; Visit Provider Radiology Diagnostic Radiology
DX: I83.813 Varicose veins of bilateral lower extremities with pain (principal)
CPT/HCPCS: 36478

== ENCOUNTER 2023-05-05 09:29 | Outpatient (OUT) | payer MEDICAID, SELFPAY ==
--- NOTE | 2023-05-05 09:30 | VEIN_ITS ---
Patient Name: RAJNI VILLARREAL MR#: [id number] : 1960 Exam Date: 05/05/2023 Ordering Doctor: DR ABRAM SAGE M.D. RADIOLOGY REPORT PROCEDURE: FACILITY EST LMTD VEIN CENTER - OFFICE VISIT FOLLOW UP COMPARISON: None. PROGRESS NOTES: The patient reports some mild discomfort of the medial left thigh following intravenous laser ablation of the left great saphenous vein. The patient has worn his compression stockings. The patient did not require oral analgesics. Physical exam demonstrates no significant bruising. The incision is sealed. The left great saphenous vein cannot be palpated likely due to the patient body habitus. No erythema or warmth to suggest cellulitis or thrombophlebitis. No active ulceration. Review of the ultrasound performed the same day demonstrates occlusive thrombus extending throughout the treated left great saphenous vein with heat induced thrombus 2.4 cm from the saphenofemoral junction. No deep vein thrombus. The patient expressed a desire to proceed with treatment of incompetent right great saphenous vein. VEIN/ Facility EST LMTD IMPRESSION: 1. Successful ablation of the left great saphenous vein. 2. Persistent incompetent right great saphenous vein. PLAN: Intravenous laser ablation of the right great saphenous vein Nurse notes, history and physical were reviewed and confirmed, see attached forms. The nurse was present throughout the physical exam and consultation Dictated by: Abram Sage MD on 05/05/2023 at 10:11 Approved by: Abram Sage MD on 05/05/2023 at 10:16
--- NOTE | 2023-05-05 09:30 | VEIN_ITS ---
Patient Name: RAJNI VILLARREAL MR#: [id number] : 1960 Exam Date: 05/05/2023 Ordering Doctor: DR ABRAM SAGE M.D. RADIOLOGY REPORT PROCEDURE: VC EXT VENOUS LT LIMITED COMPARISON: None. INDICATIONS: I80.02 Phlebitis of superficial veins of lt lower extremity TECHNIQUE: Lower extremity cohen scale and Duplex Doppler evaluation of the deep venous system from the inguinal ligament through the calf veins. FINDINGS: REGION: Left lower extremity. THROMBI: Negative for DVT. Heat induced thrombus visualized 2.4cm from the SFJ. The heat induced thrombus extends from groin to proximal calf. COMPRESSIBILITY: Non-compressible segments corresponding to thrombus FLOW: Areas of no flow corresponding to thrombus OTHER: CONCLUSION: Post ablation occlusion of the left great saphenous vein with heat induced thrombus 2.4 cm from the saphenofemoral junction and patent epigastric vein Dictated by: Abram Sage MD on 05/05/2023 at 10:06 Approved by: Abram Sage MD on 05/05/2023 at 10:07
--- OUTSIDE RECORDS SUMMARY | 2023-05-05 09:46 | XMS_ITS | CCD ---
Author Organization [facility] Care Team Providers Care Power Plant Technician Name Role Phone DR NIYAH GONZALEZ Admitting Unavailable DR NIYAH GONZALEZ Attending Unavailable RAUL PETER Primary Care Unavailable RAUL PETER Admitting Unavailable RAUL PETER Attending Unavailable RAUL PETER Primary Care Unavailable Hua Huerta Consulting Unavailable RAUL PETER Consulting Unavailable DO Peter You Attending Provider EBENEZER Peter Primary Care Provider Raul Peter Primary Care Unavailable Peter You Attending Unavailab le Peter You Admitting Unavailab le Problems Problem Classification Problem [...] by: HUA HUERTA Date: 2022-05-27 15:43 Normal [facility] Encounters Encounter Date Encounter Type Care Provider Facility Start: 09-24-2022 End: 09-24-2022 ambulatory EBENEZER Peter Work Phone: [facility] Work Phone: Start: 09-24-2022 End: 09-24-2022 Discharged Recurring EBENEZER Peter Work Phone: [facility]-Physical Therapy [address] Start: 05-27-2022 End: 05-28-2022 ambulatory RAUL PETER Facility:[facility] Start: 10-29-[address] NIYAH HERNANDEZ . Faci lity:[facility] Payers Date Payer Category Payer Private Health Insurance [id number] 2022 Self-pay 2022 Medicaid [id number] 1961 Unknown [id number] 1960 Unknown [id number] 1960 Unknown [id number] Unknown [id number] Social History Date Type Detail Facility Tobacco smoking stat [facility] Unknown if ever smoked [facility] Work Phone: Start: 1960 Sex Assigned At Male F [facility] Evaluation note Note Date & Type Note Facility Evaluation note No assessment information availa ble [facility] Work Phone: Summary Purpose [...] DATE CREATED AUTHOR AUTHOR'S ORGANIZ ATION 11/22/2022 [facility] Care Teams (unrecognized sec tion and content) Team Status: Active Member Role Status Dates Raul Peter PA-C Primary Care Provider Activ king Team Status: Inactive Member Role Status Dates Peter You DO Attending Provider Active Raul Peter PA-C Primary Care Provider Activ e Goals (unrecognized section and content) Goals may [...] BE BASED ON THE PRIMARY CLINICAL RECORDS. [employer] provides no warranty or guarantee of the accuracy or completeness of information in this document.
== END 2023-05-05 09:30 | disposition home or self-care (01) ==
LOC: VC 09:29
PROVIDERS: PCP Radiology Diagnostic Radiology; Visit Provider Radiology Diagnostic Radiology
DX: I80.02 Phlebitis and thrombophlebitis of superficial vessels of left lower extremity (principal)
CPT/HCPCS: 93971; G0463

== ENCOUNTER 2023-05-19 08:59 | Outpatient (OUT) | payer MEDICAID, SELFPAY ==
--- NOTE | 2023-05-19 09:02 | VEIN_ITS ---
[address] [address] Patient Name: RAJNI VILLARREAL MRN: [id number] date: 1960 Sex: M Assigned Patient Location: Current Patient Location: Accession/Order Number: [id number] Exam Date: 05/19/2023 09:03 Report Date: 05/19/2023 10:34 At the request of: PILLO FUNEZ Procedure: VC Endovenous Ablation 1VeinRT EXAMINATION: VC Endovenous Ablation 1VeinRT HISTORY: I83.813 Bilateral leg painful varicose veins The risks and benefits of the procedure had been previously discussed, and were rediscussed at length. Informed written consent was obtained. Geovanny Aguilar RN and Mikayla Keller RDMS, RVT assisted. Time out procedure was performed. The right lower extremity was prepared and draped in the usual sterile fashion to allow knee flexion in the sterile field. Duplex ultrasound probe was draped in a sterile cover, sterile transmission gel was used. Venous mapping was performed with the areas of dilation and large tributaries marked. The total length was 53 cm from the entry 4 cm above the ankle to 3 cm below the Saphenofemoral junction. The diameter of the right great saphenous vein ranged from 6.9 mm. A 30 gauge needle and 1% buffered lidocaine was used to anesthetize the entry site. A 4 mm incision was made with a scalpel and the saphenous vein was entered percutaneously under direct ultrasound guidance with a micropuncture set, a single stick was successful in gaining access. A micro-guide wire was inserted and the needle removed. A micro-set including a dilator was inserted over the microwire and the needle and dilator were removed. A guide wire was inserted through the micro-set and guided through the saphenous vein to the saphenofemoral junction. The dilator was removed and an introducer sheath was inserted over the wire until the end of the sheath entered the saphenofemoral junction. The dilator and wire were removed and the 600 micron fiber was introduced and placed and positioned so that it extended beyond the sheath and was 3 cm distal to the saphenofemoral or saphenopopliteal junction. Final position of the fiber was determined by ultrasound guidance and duplex imaging. Tumescent anesthetic was delivered by ultrasound guidance. 325 cc of fluid was delivered along the entire course of the saphenous vein. The solution consisted of 1000 cc of normal saline with 40 mL of 1% lidocaine and 20 mL of sodium bicarbonate. A final positioning check was made. The energy source was turned on by means of the foot pedal and the fiber and sheath were withdrawn. The total number of Joules delivered was 3178. The laser was active for 397 seconds under continuous pulse, average laser use of 8 J. Laser start time: 9:47 AM Laser stop time: 9:58 AM Date: 05/19/2023. A duplex ultrasound revealed compressibility and flow at the saphenofemoral junction immediately after the procedure. Hemostasis at the access site was achieved. The skin incision of the saphenous vein was closed with a 4 x 4. A compression stocking was applied. Postop instructions were given. A follow up appointment was recommended and scheduled. The patient tolerated the procedure well. Electronically authenticated by: LIZ SMART Date: 05/19/2023 10:34
--- OUTSIDE RECORDS SUMMARY | 2023-05-19 09:07 | XMS_ITS | CCD ---
Demographics Address [address] [facility] [address] [place] [address] Preferred Language en Marital Status Single Druze Affiliation Unknown Race Unknown Ethnic Group Unknown Author Organization [facility] Care Team Providers Care Finance Intern Name Role Phone DR NIYAH GONZALEZ Admitting [...] by: HUA HUERTA Date: 2022-05-27 15:43 Normal [facility] Encounters Encounter Date Encounter Type Care Provider Facility Start: 09-24-2022 End: 09-24-2022 ambulatory EBENEZER Peter Work Phone: [facility] Work Phone: Start: 09-24-2022 End: 09-24-2022 Discharged Recurring EBENEZER Peter Work Phone: [facility] [address] Start: 05-27-2022 End: 05-28-2022 ambulatory RAUL PETER Facility:H1 Start: 10-29-[address] NIYAH HERNANDEZ . Faci lity:H1 Payers Date Payer Category Payer Private Health Insurance [id number] 2022 Self-pay 2022 Medicaid [id number] 1961 Unknown [id number] 1960 Unknown [id number] 2.16.84 [id number] 1960 Unknown [id number] 2.16.84 [id number] Unknown [id number] 2.16.8 [id number] Social History Date Type Detail Facility Tobacco smoking stat [facility] Unknown if ever smoked [facility] Work Phone: Start: 1960 Sex Assigned At Male F [facility] Evaluation note Note Date & Type Note Facility Evaluation note No assessment information availa ble [facility] Work Phone: Summary Purpose Family History [...] DATE CREATED AUTHOR AUTHOR'S ORGANIZ ATION 11/22/2022 [facility] Care Teams (unrecognized sec tion and content) [...] BE BASED ON THE PRIMARY CLINICAL RECORDS. [employer] provides no warranty or guarantee of the accuracy or completeness of information in this document.
[2023-05-19] MEDS: LIDOCAINE HCL 1% 100 MG/10 ML MDV INJ (09:26)
[2023-05-19] MEDS: 0.9 % SODIUM CHLORIDE 500 ML, LIDOCAINE HCL 20 ML, SODIUM BICARBONATE 10 MEQ INJ (09:27)
== END 2023-05-19 09:00 | disposition home or self-care (01) ==
LOC: VC 08:59
PROVIDERS: PCP Radiology Diagnostic Radiology; Visit Provider Radiology Diagnostic Radiology
DX: I83.813 Varicose veins of bilateral lower extremities with pain (principal)
CPT/HCPCS: 36478

== ENCOUNTER 2023-05-26 11:27 | Outpatient (OUT) | payer MEDICAID, SELFPAY ==
--- NOTE | 2023-05-26 11:33 | VEIN_ITS ---
Patient Name: RAJNI VILLARREAL MR#: [id number] : 1960 Exam Date: 05/26/2023 Ordering Doctor: DR ABRAM SAGE M.D. RADIOLOGY REPORT PROCEDURE: VC EXT VENOUS RT LMTD COMPARISON: None. INDICATIONS: I80.01 Phlebitis of superficial veins of rt lower extremity TECHNIQUE: Lower extremity cohen scale and Duplex Doppler evaluation of the deep venous system from the inguinal ligament through the calf veins. FINDINGS: REGION: Right lower extremity. THROMBI: Negative for DVT. Heat induced thrombus visualized 2.1cm from the SFJ. The heat induced thrombus extends from groin to distal calf. COMPRESSIBILITY: Non-compressible segments corresponding to thrombus FLOW: Areas of no flow corresponding to thrombus CONCLUSION: Post ablation occlusion of the right great saphenous vein with heat induced thrombus 2.1 cm from the saphenofemoral junction Dictated by: Abram Sage MD on 05/26/2023 at 12:02 Approved by: Abram Sage MD on 05/26/2023 at 12:03
--- NOTE | 2023-05-26 11:33 | VEIN_ITS ---
Patient Name: RAJNI VILLARREAL MR#: [id number] : 1960 Exam Date: 05/26/2023 Ordering Doctor: DR ABRAM SAGE M.D. RADIOLOGY REPORT PROCEDURE: [facility] EST LMTD VEIN CENTER - OFFICE VISIT FOLLOW UP [facility] PROGRESS NOTES: The patient reports some mild discomfort of the right leg following intravenous laser ablation. The patient did not require oral analgesics. The patient has worn his compression stocking Physical exam demonstrates no significant erythema or warmth to suggest cellulitis or thrombophlebitis. No active ulceration. The incision is healed. The thrombosed right great saphenous vein can be palpated. Review of the ultrasound performed the same day demonstrates occlusive thrombus extending throughout the treated right great saphenous vein with heat induced thrombus 2.1 cm from the saphenofemoral junction. The patient expressed a desire to proceed with treatment of incompetent left anterior accessory saphenous vein. VEIN/[facility] EST LMTD IMPRESSION: 1. Successful ablation of the right great saphenous vein 2. Persistent incompetent left anterior accessory saphenous. PLAN: Intravenous laser ablation left anterior accessory saphenous vein Nurse notes, history and physical were reviewed and confirmed, see attached forms. The nurse was present throughout the physical exam and consultation Dictated by: Abram Sage MD on 05/26/2023 at 12:30 Approved by: Abram Sage MD on 05/26/2023 at 12:31
--- OUTSIDE RECORDS SUMMARY | 2023-05-26 11:48 | XMS_ITS | CCD ---
Demographics Address [address] [facility] [address] [place] [address] Preferred Language en Marital Status Single Islam Affiliation Unknown Race Unknown Ethnic Group Unknown Author Organization [facility] Care Team Providers Care Arch Pad Cementer Name Role Phone DR NIYAH GONZALEZ Admitting [...] by: HUA HUERTA Date: 2022-05-27 15:43 Normal [facility] Encounters Encounter Date Encounter Type Care Provider Facility Start: 09-24-2022 End: 09-24-2022 ambulatory EBENEZER Peter Work Phone: [facility] Work Phone: Start: 09-24-2022 End: 09-24-2022 Discharged Recurring EBENEZER Peter Work Phone: [facility] [address] Start: 05-27-2022 End: 05-28-2022 ambulatory RAUL PETER Facility:H1 Start: 10-29-[address] NIYAH HERNANDEZ . Faci lity:H1 Payers Date Payer Category Payer Private Health Insurance [id number] 2022 Self-pay 2022 Medicaid [id number] 1961 Unknown [id number] 1960 Unknown [id number] 2.16.84 [id number] 1960 Unknown [id number] 2.16.84 [id number] Unknown [id number] 2.16.8 [id number] Social History Date Type Detail Facility Tobacco smoking stat [facility] Unknown if ever smoked [facility] Work Phone: Start: 1960 Sex Assigned At Male F [facility] Evaluation note Note Date & Type Note Facility Evaluation note No assessment information availa ble [facility] Work Phone: Summary Purpose Family History [...] DATE CREATED AUTHOR AUTHOR'S ORGANIZ ATION 11/22/2022 [facility] Care Teams (unrecognized sec tion and content) [...] BE BASED ON THE PRIMARY CLINICAL RECORDS. [employer] provides no warranty or guarantee of the accuracy or completeness of information in this document.
== END 2023-05-26 11:28 | disposition home or self-care (01) ==
LOC: VC 11:32
PROVIDERS: PCP Radiology Diagnostic Radiology; Visit Provider Radiology Diagnostic Radiology
DX: I80.01 Phlebitis and thrombophlebitis of superficial vessels of right lower extremity (principal)
CPT/HCPCS: 93971; G0463

== ENCOUNTER 2023-06-08 10:02 | Outpatient (OUT) | payer MEDICAID, SELFPAY ==
--- NOTE | 2023-06-08 10:02 | VEIN_ITS ---
[address] [address] Patient Name: RAJNI VILLARREAL MRN: [id number] date: 1960 Sex: M Assigned Patient Location: Current Patient Location: Accession/Order Number: [id number] Exam Date: 06/08/2023 10:05 Report Date: 06/08/2023 11:14 At the request of: PILLO FUNEZ Procedure: VC Endovenous Ablation 1VeinLT EXAMINATION: VC Endovenous Ablation 1Vein, left anterior accessory saphenous vein HISTORY: Pain due to varicose veins of bilateral legs I83.813 COMPARISON: No relevant comparison available. TECHNIQUE: The risks and benefits of the procedure had been previously discussed, and were rediscussed at length. Informed written consent was obtained. Bianca Dolan and Geovanny Aguilar assisted. Time out procedure was performed. The left lower extremity was prepared and draped in the usual sterile fashion to allow knee flexion in the sterile field. Duplex ultrasound probe was draped in a sterile cover, sterile transmission gel was used. Venous mapping was performed with the areas of dilation and large tributaries marked. The total length was 15 cm from the entry mid thigh to 3 cm below the saphenofemoral junction. The diameter of the anterior accessory saphenous vein ranged from 6-9 mm. A 30 gauge needle and 1% buffered lidocaine was used to anesthetize the entry site. A 4 mm incision was made with a scalpel and the saphenous vein was entered percutaneously under direct ultrasound guidance with a micropuncture set, a single stick was successful in gaining access. A micro-guide wire was inserted and the needle removed. A micro-set including a dilator was inserted over the microwire and the needle and dilator were removed. A 0.018 guide wire was inserted through the micro-set and threaded through the saphenous vein to the saphenofemoral junction. The dilator was removed and an introducer sheath was inserted over the wire until the end of the sheath entered the saphenofemoral junction. The dilator and wire were removed and the 600 micron fiber was introduced and placed and positioned so that it extended beyond the sheath and was 3 cm peripheral to the saphenofemoral femoral junction. Final position of the fiber was determined by ultrasound guidance and duplex imaging. Tumescent anesthetic was delivered by ultrasound guidance. 100 cc of fluid was delivered along the entire course of the saphenous vein. The solution consisted of 1000 cc of normal saline with 40 mL of 1% lidocaine and 20 mL of sodium bicarbonate. A final positioning check was made. The energy source was turned on by means of the foot pedal and the fiber and sheath were withdrawn. The total number of Joules delivered was 872. The laser was active for 109seconds under continuous pulse, average laser use of 8 J. Laser start time 10:54 AM 06/08/2023 . Laser stop time 10:56 AM 06/08/2023 . A duplex ultrasound revealed compressibility and flow at the saphenofemoral junction immediately after the procedure. Hemostasis at the access site was achieved. The skin incision of the saphenous vein was closed with a 4 x 4. A compression stocking was applied. Postop instructions were given. A follow up appointment was recommended and scheduled. The patient tolerated the procedure well and was discharged in good condition . VEIN/VC Endovenous Ablation 1VeinLT IMPRESSION: Technically successful endovenous laser ablation of the left anterior accessory saphenous vein Electronically authenticated by: PILLO FUNEZ Date: 06/08/2023 11:14
[2023-06-08] MEDS: 0.9 % SODIUM CHLORIDE 500 ML, LIDOCAINE HCL 20 ML, SODIUM BICARBONATE 10 MEQ INJ (10:23)
[2023-06-08] MEDS: LIDOCAINE HCL 1% 100 MG/10 ML MDV INJ (10:23)
== END 2023-06-08 10:03 | disposition home or self-care (01) ==
LOC: VC 10:02
PROVIDERS: PCP Radiology Diagnostic Radiology; Visit Provider Radiology Diagnostic Radiology
DX: I83.813 Varicose veins of bilateral lower extremities with pain (principal)
CPT/HCPCS: 36478

== ENCOUNTER 2023-06-11 08:27 | Outpatient (OUT) | payer MEDICAID, SELFPAY ==
--- NOTE | 2023-06-11 08:28 | VEIN_ITS ---
Patient Name: RAJNI VILLARREAL MR#: [id number] : 1960 Exam Date: 06/11/2023 Ordering Doctor: DR PILLO FUNEZ M.D. RADIOLOGY REPORT PROCEDURE: [facility] EST LMTD VEIN CENTER - OFFICE VISIT FOLLOW UP [facility] PROGRESS NOTES: The patient reports improvement in leg symptoms. There has been interval reduction in varicosities. The patient has followed our recommendations to walk 20-30 minutes once or twice per day since the procedure. Physical exam demonstrates decrease in varicosities of the leg. Persistent varicosities are identified along the legs bilaterally. Review of the ultrasound performed the same day demonstrates occlusive thrombus extending throughout the treated vein(s), see separate report, consistent with a successful ablation. No thrombus extending into or beyond the saphenofemoral junction. The patient expressed a desire to proceed with treatment of remaining incompetent varicosities. The patient was informed that treatment was a process and would require several procedures/sessions. [facility]: 1. Successful ablation of the left anterior accessory saphenous vein(s). 2. Persistent varicose veins and lower extremity symptoms. PLAN: Endovenous laser ablation of right small saphenous vein. Nurse notes, history and physical were reviewed and confirmed, see attached forms. The nurse was present throughout the physical exam and consultation Dictated by: Hua Huerta M.D. on 06/11/2023 at 12:04 Approved by: Hua Huerta M.D. on 06/11/2023 at 12:04
--- NOTE | 2023-06-11 08:30 | VEIN_ITS ---
Patient Name: RAJNI VILLARREAL MR#: [id number] : 1960 Exam Date: 06/11/2023 Ordering Doctor: DR PILLO FUNEZ M.D. RADIOLOGY REPORT PROCEDURE: VC EXT VENOUS LT LIMITED COMPARISON: VC EXT VENOUS LT LIMITED, 05/05/2023. INDICATIONS: Phlebitis of superficial veins of lt lower extremity I80.02 TECHNIQUE: Lower extremity cohen scale and Duplex Doppler evaluation of the deep venous system from the inguinal ligament through the calf veins. FINDINGS: REGION: Left lower extremity. THROMBI: Negative for DVT. Heat induced thrombus visualized 2.7cm from the SFJ. The heat induced thrombus extends from groin to mid thigh. COMPRESSIBILITY: Non-compressible segments corresponding to thrombus FLOW: Areas of no flow corresponding to thrombus OTHER: CONCLUSION: 1. Successful post ablation occlusion of left anterior accessory saphenous vein. Dictated by: Hua Huerta M.D. on 06/11/2023 at 12:03 Approved by: Hua Huerta M.D. on 06/11/2023 at 12:04
--- OUTSIDE RECORDS SUMMARY | 2023-06-11 08:45 | XMS_ITS | CCD ---
Author Organization [facility] Care Team Providers Care Piano Technician Name Role Phone DR NIYAH GONZALEZ [...] le Peter You Admitting Unavailab le Problems Active Problems Problem Classification Problem Date Documented Date Episodic/Chronic Biliary tract disease (1 source) Calculus of gallbladder without cholecystitis without obstruction; Translations: [CALCU GB W/O CHOLECYST W/O OBST] Onset: 06-01-2022 Episodic Other liver diseases (4 sources) Abnormal levels of other serum enzymes; Translations: [ABNORMAL LEVELS OTHER SERUM ENZYMES] Onset: 05-27-2022 Episodic Past or Other Problems Problem Classification Problem Date Documented Da te Episodic/Chronic Spondylosis; intervertebral disc disorders; other back problems [...] HUA HUERTA Date: 2022-05-27 15:43 Normal [facility] Encounters Encounter Date Encounter Type Care Provider Facility Start: 09-24-2022 End: 09-24-2022 ambulatory EBENEZER Peter Work Phone: [facility] Work Phone: Start: 09-24-2022 End: 09-24-2022 Discharged Recurring EBENEZER Peter Work Phone: [facility] [address] Start: 05-27-2022 End: 05-28-2022 ambulatory RAUL PETER Facility:H1 Start: 10-29-[address] NIYAH HERNANDEZ . Faci lity:H1 Payers Date Payer Category Payer Private Health Insurance [id number] 2022 Self-pay 2022 Medicaid [id number] 1961 Unknown [id number] 1960 Unknown [id number] [id number] 1960 Unknown [id number] 2.16.84 [id number] Unknown [id number] 2.16.8 [id number] Social History Date Type Detail Facility Tobacco smoking stat [facility] Unknown if ever smoked [facility] Work Phone: Start: 1960 Sex Assigned At Male F [facility] Evaluation note Note Date & Type Note Facility Evaluation note No assessment information availa ble [facility] Work Phone: Summary Purpose Family [...] content) DATE CREATED AUTHOR 06/01/2022 [facility] DATE CREATED AUTHOR AUTHOR'S ORGANIZ ATION 06/03/2023 [facility] Care Teams (unrecognized sec tion and content) [...] BE BASED ON THE PRIMARY CLINICAL RECORDS. [facility] [employer] [facility]. provides no warranty or guarantee of the accuracy or completeness of information in this document.
== END 2023-06-11 08:28 | disposition home or self-care (01) ==
LOC: VC 08:27
PROVIDERS: PCP Radiology Diagnostic Radiology; Visit Provider Radiology Diagnostic Radiology
DX: G62.9 Polyneuropathy, unspecified (principal); I80.02 Phlebitis and thrombophlebitis of superficial vessels of left lower extremity
CPT/HCPCS: 36415; 80307; 93971; G0463

== ENCOUNTER 2023-06-11 13:20 | Outpatient (REF) | payer MEDICAID, SELFPAY ==
[2023-06-11 17:23] LABS: Amphetamine Screen Urine POSITIVE (NEGATIVE); Barbiturates Screen Urine NEGATIVE (NEGATIVE); Benzodiazepines Screen Urine NEGATIVE (NEGATIVE); Buprenorphine Screen Urine NEGATIVE (NEGATIVE); Cannabinoid Screen Urine POSITIVE (NEGATIVE); Cocaine Screen Urine NEGATIVE (NEGATIVE); Methadone Screen Urine NEGATIVE (NEGATIVE); Methamphetamines Screen Urine POSITIVE (NEGATIVE); Opiate Screen Urine NEGATIVE (NEGATIVE); Oxycodone Screen Urine NEGATIVE (NEGATIVE); Phencyclidine Screen Urine NEGATIVE (NEGATIVE); Tricyclic Antidepressant Urine NEGATIVE (NEGATIVE)
== END 2023-06-11 13:21 | disposition home or self-care (01) ==
LOC: LAB 13:20
PROVIDERS: PCP Radiology Diagnostic Radiology; Visit Provider Nurse Practitioner
DX: G62.9 Polyneuropathy, unspecified (principal)
CPT/HCPCS: 36415; 80307

== ENCOUNTER 2023-06-23 10:27 | Outpatient (OUT) | payer MEDICAID, SELFPAY ==
[2023-06-23] MEDS: LIDOCAINE HCL 1% 100 MG/10 ML MDV INJ (10:30)
[2023-06-23] MEDS: 0.9 % SODIUM CHLORIDE 500 ML, LIDOCAINE HCL 20 ML, SODIUM BICARBONATE 10 MEQ INJ (10:30)
--- OUTSIDE RECORDS SUMMARY | 2023-06-23 10:36 | XMS_ITS | CCD ---
Demographics Address [address] [place] [address] Preferred Language en Marital Status Single Cheondoism Affiliation Unknown Race White Ethnic Group Unknown Author Organization [facility] Care Team Providers Care Feller Buncher Operator Name Role Phone DR NIYAH GONZALEZ Admitting Unavailable MARY ., DR NIYAH Barton Attending Unavailable RAUL PETER Primary Care Unavailable ROME, RAUL Admitting Unavailable RAUL PETER Attending Unavailable RAUL PETER Primary Care Unavailable Hua Huerta Consulting Unavailable RAUL PETER Consulting Unavailable DO Peter You Attending Provider [phone] EBENEZER Peter Primary Care Provider Raul Peter Primary Care Unavailable Peter You Attending Unavailab Peter Ayala Admitting Unavailab SEKOU Ness Attending Unavailable Problems Active Problems Problem Classification Problem Date [...] by: HUA HUERTA Date: 2022-05-27 15:43 Normal [facility] Encounters Encounter Date Encounter Type Care Provider Facility Start: 06-10-2023 End: 06-10-2023 ambulatory SEKOU TERRAZAS Not Available Start: 09-24-2022 End: 09-24-2022 ambulatory EBENEZER Peter Work Phone: [facility] Work Phone: Start: 09-24-2022 End: 09-24-2022 Discharged Recurring EBENEZER Peter Work Phone: [facility] Start: 05-27-2022 End: 05-28-2022 ambulatory RAUL PETER Facility:H1 Start: 10-29-[address] NIYAH HERNANDEZ . Faci lity:H1 Payers Date Payer Category Payer Private Health Insurance [id number] 2022 Self-pay 2022 Medicaid [id number] 1961 Unknown [id number] 1960 Unknown [id number] 2.16.84 [id number] 1960 Unknown [id number] 2.16.84 [id number] 1960 Unknown [id number] 2.16.84 [id number] Unknown [id number] 2.16.8 [id number] Social History Date Type Detail Facility Tobacco smoking stat [facility] Unknown if ever smoked [facility] Work Phone: Start: 1960 Sex Assigned At Male F [facility] Evaluation note Note Date & Type Note Facility Evaluation note No assessment information availa ble [facility] Work Phone: Summary Purpose Family History No Family History Records FoundNo Family History Records FoundNo Family History Records Found Advance Directives No Advanced Directives Records Found Advance Directive Response Recorded Date/ Time Advance Directives No August 25 1:24pm Chief Complaint and Reason for Visit Chief Complaint V DDD Additional Source Comments (unrecognized sect ion and content) No Status Records FoundNo Status Records FoundNo Status Records Found INFORMATION SOURCE (unrecogn ized section and content) DATE CREATED AUTHOR 06/01/2022 [facility] DATE CREATED AUTHOR AUTHOR'S ORGANIZ ATION 06/03/2023 [facility] DATE CREATED AUTHOR AUTHOR'S ORGANIZ ATION 06/11/2023 [facility] Care Teams (unrecognized sec tion and content) Team Status: Active Member Role Status Dates Raul Peter PA-C Primary Care Provider Activ e Team Status: Inactive Member Role Status Dates [...] BE BASED ON THE PRIMARY CLINICAL RECORDS. [facility] [employer] provides no warranty or guarantee of the accuracy or completeness of information in this document.
--- NOTE | 2023-06-23 10:37 | VEIN_ITS ---
[address] [address] Patient Name: RAJNI VILLARREAL MRN: [id number] date: 1960 Sex: M Assigned Patient Location: Current Patient Location: Accession/Order Number: [id number] Exam Date: 06/23/2023 10:40 Report Date: 06/23/2023 13:30 At the request of: PILLO FUNEZ Procedure: VC Endovenous Ablation 1VeinRT EXAMINATION: VC Endovenous Ablation 1VeinRT HISTORY: I83.813 Bilateral leg painful varicose veins The risks and benefits of the procedure had been previously discussed, and were rediscussed at length. Informed written consent was obtained. Geovanny Aguilar RN and Mikayla Keller RDMS, RVT assisted. Time out procedure was performed. The right lower extremity was prepared and draped in the usual sterile fashion to allow knee flexion in the sterile field. Duplex ultrasound probe was draped in a sterile cover, sterile transmission gel was used. Venous mapping was performed with the areas of dilation and large tributaries marked. The total length was 33 cm from the entry 3 cm above the ankle to the thigh extension just proximal to a vessel enters the deeper tissue. The diameter of the right small saphenous vein ranged from 6.7 mm. A 30 gauge needle and 1% buffered lidocaine was used to anesthetize the entry site. A 4 mm incision was made with a scalpel and the saphenous vein was entered percutaneously under direct ultrasound guidance with a micropuncture set, a single stick was successful in gaining access. A micro-guide wire was inserted and the needle removed. A micro-set including a dilator was inserted over the microwire and the needle and dilator were removed. A guide wire was inserted through the micro-set and guided through the saphenous vein to the saphenofemoral junction. The dilator was removed and an introducer sheath was inserted over the wire until the end of the sheath entered the saphenofemoral junction. The dilator and wire were removed and the 600 micron fiber was introduced and placed and positioned so that it extended beyond the sheath and was 3 cm distal to the saphenofemoral or saphenopopliteal junction. Final position of the fiber was determined by ultrasound guidance and duplex imaging. Tumescent anesthetic was delivered by ultrasound guidance. 150 cc of fluid was delivered along the entire course of the saphenous vein. The solution consisted of 1000 cc of normal saline with 40 mL of 1% lidocaine and 20 mL of sodium bicarbonate. A final positioning check was made. The energy source was turned on by means of the foot pedal and the fiber and sheath were withdrawn. The total number of Joules delivered was 1737. The laser was active for 217 seconds under continuous pulse, average laser use of 8 J. Laser start time: 11:25 AM Laser stop time: 11:30 AM Date: 06/23/2023. A duplex ultrasound revealed compressibility and flow at the saphenofemoral junction immediately after the procedure. Hemostasis at the access site was achieved. The skin incision of the saphenous vein was closed with a 4 x 4. A compression stocking was applied. Postop instructions were given. A follow up appointment was recommended and scheduled. The patient tolerated the procedure well. Electronically authenticated by: LIZ SMART Date: 06/23/2023 13:30
== END 2023-06-23 10:28 | disposition home or self-care (01) ==
LOC: VC 10:28
PROVIDERS: PCP Radiology Diagnostic Radiology; Visit Provider Radiology Diagnostic Radiology
DX: I83.813 Varicose veins of bilateral lower extremities with pain (principal)
CPT/HCPCS: 36478

== ENCOUNTER 2023-06-26 09:57 | Outpatient (OUT) | payer MEDICAID, SELFPAY ==
--- NOTE | 2023-06-26 10:00 | VEIN_ITS ---
Patient Name: RAJNI VILLARREAL MR#: [id number] : 1960 Exam Date: 06/26/2023 Ordering Doctor: DR PILLO FUNEZ M.D. RADIOLOGY REPORT PROCEDURE: VC EXT VENOUS RT LMTD COMPARISON: VC EXT VENOUS RT LMTD, 05/26/2023. INDICATIONS: Phlebitis of superficial veins of right lower extremity I80.01 TECHNIQUE: Lower extremity cohen scale and Duplex Doppler evaluation of the deep venous system from the inguinal ligament through the calf veins. FINDINGS: REGION: Right lower extremity. THROMBI: Negative for DVT. Heat induced thrombus in right SSV and thigh extention 3 cm from popliteal. COMPRESSIBILITY: Non-compressible segments corresponding to thrombus FLOW: Areas of no flow corresponding to thrombus OTHER: CONCLUSION: 1. Successful post ablation occlusion of right small saphenous vein. Dictated by: Hua Huerta M.D. on 06/26/2023 at 10:51 Approved by: Hua Huerta M.D. on 06/26/2023 at 10:52
--- NOTE | 2023-06-26 10:00 | VEIN_ITS ---
Patient Name: RAJNI VILLARREAL MR#: [id number] : 1960 Exam Date: 06/26/2023 Ordering Doctor: DR PILLO FUNEZ M.D. RADIOLOGY REPORT PROCEDURE: [facility] EST LMTD VEIN CENTER - OFFICE VISIT FOLLOW UP COMPARISON: [facility], 06/11/2023. PROGRESS NOTES: The patient reports improvement in leg symptoms. There has been interval reduction in varicosities. The patient has followed our recommendations to walk 20-30 minutes once or twice per day since the procedure. Physical exam demonstrates decrease in varicosities of the leg. Persistent varicosities are identified along the legs bilaterally. Review of the ultrasound performed the same day demonstrates occlusive thrombus extending throughout the treated vein(s), see separate report, consistent with a successful ablation. No thrombus extending into or beyond the saphenofemoral junction. The patient expressed a desire to proceed with treatment of remaining incompetent varicosities. The patient was informed that treatment was a process and would require several procedures/sessions. [facility] IM[facility]: 1. Successful ablation of the right small saphenous vein(s). 2. Persistent varicose veins and lower extremity symptoms. PLAN: Endovenous laser ablation of left small saphenous vein. Nurse notes, history and physical were reviewed and confirmed, see attached forms. The nurse was present throughout the physical exam and consultation Dictated by: Hua Huerta M.D. on 06/26/2023 at 10:53 Approved by: Hua Huerta M.D. on 06/26/2023 at 10:53
--- OUTSIDE RECORDS SUMMARY | 2023-06-26 10:03 | XMS_ITS | CCD ---
Demographics Address [address] [place] [id number] Preferred Language en Marital Status Single Lutheran Affiliation Unknown Race White Ethnic Group Unknown Author Organization [facility] Care Team Providers Care Value Analyst Name Role Phone DR NIYAH GONZALEZ Admitting [...] HUERTA Date: 2022-05-27 15:43 Normal [facility] Encounters Encounter Date Encounter Type Care Provider Facility Start: 06-10-2023 End: 06-10-2023 ambulatory SEKOU TERRAZAS Not Available Start: 09-24-2022 End: 09-24-2022 ambulatory EBENEZER Peter Work Phone: [facility] Work Phone: Start: 09-24-2022 End: 09-24-2022 Discharged Recurring EBENEZER Peter Work Phone: [facility]-Physical Therapy [facility] Start: 05-27-2022 End: 05-28-2022 ambulatory RAUL PETER Facility:H1 Start: 10-29-[address] NIYAH HERNANDEZ . Faci lity:H1 Payers Date Payer Category Payer Private Health Insurance [id number] 2022 Self-pay 2022 Medicaid [id number] 1961 Unknown [id number] 1960 Unknown [id number] 1960 Unknown [id number] [id number] [id number] 1960 Unknown [id number] 2.16.84 [id number] Unknown [id number] 2.16.8 [id number] Social History Date Type Detail Facility Tobacco smoking stat [facility] Unknown if ever smoked [facility] Work Phone: Start: 1960 Sex Assigned At Male F [facility] Evaluation note Note Date & Type Note Facility Evaluation note No assessment information availa ble [facility] Work Phone: Summary Purpose Family [...] CREATED AUTHOR AUTHOR'S ORGANIZ ATION 06/03/2023 [facility] DATE CREATED AUTHOR AUTHOR'S ORGANIZ ATION 06/11/2023 [facility] Special[facility] Care Teams (unrecognized sec tion and content) [...] BE BASED ON THE PRIMARY CLINICAL RECORDS. [facility] [employer] provides no warranty or guarantee of the accuracy or completeness of information in this document.
== END 2023-06-26 09:58 | disposition home or self-care (01) ==
LOC: VC 09:58
PROVIDERS: PCP Radiology Diagnostic Radiology; Visit Provider Radiology Diagnostic Radiology
DX: I80.01 Phlebitis and thrombophlebitis of superficial vessels of right lower extremity (principal)
CPT/HCPCS: 93971; G0463

== ENCOUNTER 2023-08-18 11:08 | Outpatient (OUT) | payer MEDICAID, SELFPAY ==
--- OUTSIDE RECORDS SUMMARY | 2023-08-18 11:16 | XMS_ITS | CCD ---
Demographics Address [address] [place] [address] Preferred Language en Marital Status Single Gnosticist Affiliation Unknown Race White Ethnic Group Unknown Author Organization [facility] Care Team Providers Care Slubber Tender Name Role Phone DR NIYAH GONZALEZ Admitting Unavailable MARY Mosher, DR NIYAH Barton Attending Unavailable RAUL PETER Primary Care Unavailable RAUL PETER Admitting Unavailable RAUL PETER Attending Unavailable RAUL PETER Primary Care Unavailable Liz Huerta Consulting Unavailable RAUL PETER Consulting Unavailable DO Peter You Attending Provider [phone] EBENEZER Peter Primary Care Provider Raul Peter Primary Care Unavailable Peter You Attending Unavailab Peter Ayala Admitting Unavailab SEKOU Ness Attending Unavailable SEKOU TERRAZAS Attending Unavailable Medications Current Medications Medication Drug Class(es) Dates Sig (Normalized) Sig (Original) empagliflozin 25 mg oral tablet (1 source) Sodium-Glucose Cotransporter 2 Inhibitor Start: 07-09-2023 take 1 tablet by mouth once daily Empagliflozin (Jardiance) 25 mg tablet Active 25 MG PO Daily 90 90 July 09, 2023 12:00am gabapentin 600 mg oral tablet (1 source) Anti-epileptic Agent Start: 07-09-2023 take 600 mg by mouth three times daily Gabapentin Active 600 MG PO Three times daily July 09, 2023 12:00am 200 actuat ipratropium bromide 0.017 mg/actuat metered dose inhaler (1 source) Anticholinergic Start: 07-09-2023 take 1 puff(s) by inhalation every eight hours Ipratropium Callao (Atrovent Hfa) 17 mcg/actuation HFA aerosol inhaler Active 2 PUFF INHALATION Every 8 hours July 09, 2023 12:00am lisinopril 40 mg oral tablet (1 source) Angiotensin Converting Enzyme Inhibitor Start: 07-09-2023 take 40 mg by mouth once daily Lisinopril Active 40 MG PO Daily July 09, 2023 12:00am meloxicam 15 mg oral tablet (1 source) Nonsteroidal Anti-inflammatory Drug Start: 07-09-2023 take 15 mg by mouth once daily Meloxicam Active 15 MG PO Daily July 09, 2023 12:00am 24 hr oxybutynin chloride 15 mg extended release oral tablet (1 source) Cholinergic Muscarinic Antagonist Start: 07-09-2023 take 15 mg by mouth once daily Oxybutynin Chloride Active 15 MG PO Daily July 09, 2023 12:00am Semaglutide (1 source) Start: 07-09-2023 Semaglutide (Ozempic) 0.25 mg or 0.5 mg (2 mg/3 mL) pen injector Active 0.5 MG SUBCUT every week 9 84 July 09, 2023 12:00am sildenafil 100 mg oral tablet (1 source) Phosphodiesterase 5 Inhibitor Start: 07-09-2023 Sildenafil Active 100 MG PO Daily July 09, 2023 12:00am administer 30 minutes to 4 hours before activity tiZANidine 4 mg oral capsule (1 source) Central alpha-2 Adrenergic Agonist Start: 07-09-2023 take 4 mg by mouth twice daily Tizanidine Active 4 MG PO Twice daily July 09, 2023 12:00am triamcinolone acetonide 1 mg/ml topical cream (1 source) Corticosteroid Start: 07-09-2023 Triamcinolone Acetonide Active 1 APPLIC TOPICAL Twice daily July 09, 2023 12:00am Completed/Discontinued Medications Medication Drug Class(es) Dates Sig (Normalized) Sig (Original) 0.5 ml dulaglutide 3 mg/ml auto-injector (1 source) GLP-1 Receptor Agonist Start: 07-09-2023 End: 07-09-2023 Dulaglutide (Trulicity) 1.5 mg/0.5 mL pen injector Discontinued 1.5 MG SUBCUT every week July 09, 2023 12:00am July 09, 2023 4:44pm SITagliptin 100 mg oral tablet (1 source) Dipeptidyl Peptidase 4 Inhibitor Start: 07-09-2023 End: 07-09-2023 take 1 tablet by mouth once daily Sitagliptin Phosphate (Januvia) 100 mg tablet Discontinued 100 MG PO Daily July 09, 2023 12:00am July 09, 2023 4:44pm Problems Active Problems Problem Classification Problem Date Documented Date Episodic/Chronic Administrative/social admission (2 sources) Patient encounter status; Translations: [Dietary counseling and surveillance] 07-09-2023 Episodic Biliary tract disease (1 source) Calculus of gallbladder without cholecystitis without obstruction; Translations: [CALCU GB W/O CHOLECYST W/O OBST] Onset: 06-01-2022 Episodic Diabetes mellitus with complications (2 sources) Hyperglycemia due to type 2 diabetes mellitus; Translations: [Type 2 diabetes mellitus with hyperglycemia] 07-09-2023 Chronic Diabetes mellitus without complication (1 source) Type 2 diabetes mellitus without complication; Translations: [Type 2 diabetes mellitus without complications] 07-09-2023 Chronic Disorders of lipid metabolism (2 sources) Hyperlipidemia; Translations: [Hyperlipidemia, unspecified] 07-09-2023 Chronic Diverticulosis and diverticulitis (1 source) Diverticular disease; Translations: [Diverticulosis of intestine, part unspecified, without perforation or abscess without bleeding] 07-09-2023 Chronic Essential hypertension (2 sources) Hypertensive disorder; Translations: [Essential (primary) hypertension] 07-09-2023 Chronic Gout and other crystal arthropathies (1 source) Gout; Translations: [Gout, unspecified] 07-09-2023 Chronic Mood disorders (1 source) Bipolar disorder; Translations: [Bipolar disorder, unspecified] 07-09-2023 Chronic Other liver diseases (4 sources) Abnormal levels of other serum enzymes; Translations: [ABNORMAL LEVELS OTHER SERUM ENZYMES] Onset: 05-27-2022 Episodic Other nutritional; endocrine; and metabolic disorders (1 source) Body mass index 40+ - severely obese; Translations: [Body mass index (BMI) 45.0-49.9, adult] 07-09-2023 Chronic Other nutritional; endocrine; and metabolic disorders (1 source) Body mass index (BMI) 45.0-49.9, adult; Translations: [Body Mass Index 45.0-49.9, adult] 07-09-2023 Chronic Schizophrenia and other psychotic disorders (1 source) Schizophrenia; Translations: [Schizophrenia, unspecified] 07-09-2023 Chronic Past or Other Problems Problem Classification Problem [...] fatty infiltration of liver. Electronically authenticated by: LIZ HUERTA Date: 2022-05-27 15:43 Normal [facility] Vital Signs Date Time Vital Sign Value Performing Clinician Partha ron 07-09-2023 15:12-0400 Body height 162.56 cm [facility] 07-09-2023 15:12-0400 Body mass index (BMI) [Ratio] 48.9 kg/m2 [facility] 07-09-2023 15:12-0400 Body weight 129.27 kg [facility] 07-09-2023 15:12-0400 Diastolic blood pressure 100 mm[Hg] [facility] 07-09-2023 15:12-0400 Heart rate 87 /min [facility] 07-09-2023 15:12-0400 Respiratory rate 18 /min [facility] 07-09-2023 15:12-0400 SaO2% (BldA) [Mass fraction] 95 % [facility] 07-09-2023 15:12-0400 Systolic blood pressure 174 mm[Hg] [facility] Encounters Encounter Date Encounter Type Care Provider Facility Start: 08-10-2023 End: 08-10-2023 ambulatory SEKOU TERRAZAS Not Available Start: 07-09-2023 End: 07-09-2023 ambulatory [facility] Work Phone: Start: 07-09-2023 End: 07-09-2023 Patient encounter procedure [facility] Physician [facility] Work Phone: Start: 06-10-2023 End: 06-10-2023 ambulatory SEKOU TERRAZAS Not Available Start: 06-02-2023 Non-patient / Non-visit [facility] Physician [facility] Work Phone: Start: 09-24-2022 End: 09-24-2022 ambulatory EBENEZER Peter Work Phone: [facility] Work Phone: Start: 09-24-2022 End: 09-24-2022 Discharged Recurring EBENEZER Peter Work Phone: [facility]-Physical Therapy [facility] Start: 05-27-2022 End: 05-28-2022 ambulatory RAUL PETER Facility:H1 Start: 10-29-[address] NIYAH HERNANDEZ . Faci lity:H1 Plan of Treatment Date Care Activity Detail Author Start: 07-09-2023 Patient referral [facility] Work Phone: Comprehensive metabo lic 2000 panel - Serum or Plasma [facility] Patient Education Diabetes and diet [facility] Work Phone: Patient referral [facility] Work Phone: [facility] Payers Date Payer Category Payer Private Health Insurance [id number] 2022 Self-pay 2022 Medicaid [id number] 1961 Unknown [id number] 1960 Unknown [id number] 2.16.84 [id number] 1960 Unknown [id number] 2.16.84 [id number] 1960 Unknown [id number] 2.16.84 [id number] 1960 Unknown [id number] 2.16.84 [id number] Unknown [id number] 2.16.8 [id number] Social History Date Type Detail Facility Tobacco smoking stat [facility] Unknown if ever smoked [facility] Work Phone: Start: 1960 Sex Assigned At Male [facility] Chief complaint+Reason for visit Narrative Note Date & Type Note Facility Chief complaint+Reason for visit Narrative Reason for Visit BMI 45.0-49.9, adult Dietary counseling and surveillance Hyperlipidemia Hypertension Type 2 diabetes mellitus with hyperglycemia [facility] Work Phone: Evaluation note Note Date & Type Note Facility Evaluation note No assessment information availa ble [facility] Work Phone: Evaluation note Note Date & Type Note Facility Evaluation note Diagnosis Onset Date BMI 45.0-49.9, adult acute Dietary counseling and surveillance acute Hyperlipidemia acute Hypertension acute Type 2 diabetes mellitus with hyperglycemia acute [facility] Work Phone: Hospital Discharge instructions Note Date & Type Note Facility Hospital Discharge instructions Ambulatory OrdersReferral to Diabetes Education Location: None SelectedReferral to Shuttle Final Inspector Location: None Selected [facility] Work Phone: Summary Purpose Family History No Family History Records Found Relationship Condition Age at Onset Recorded Date/T shirlene father Hypertension Unknown Malignant neoplasm Unknown Unknown Not Specified Malignant neoplasm Unknown brother Unknown family medical history Unknown sister Unknown family medical history Unknown brother Unknown Drug overdose Unknown Suicide Unknown Advance Directives No Advanced Directives Records Found Advance Directive Response Recorded Date/ Time Advance Directives No August 25 1:24pm Chief Complaint and Reason for Visit Chief Complaint V DDD Additional Source Comments (unrecognized sect ion and content) No Status Records FoundNo Status Records FoundNo Status Records Found INFORMATION SOURCE (unrecogn ized section and content) DATE CREATED AUTHOR 06/01/2022 [facility] DATE CREATED AUTHOR AUTHOR'S ORGANIZ ATION 06/03/2023 [facility] DATE CREATED AUTHOR AUTHOR'S ORGANIZ ATION 08/11/2023 [facility] Care Teams (unrecognized sec tion and content) Team Status: Active Member Role Status Dates Raul Peter PA-C Primary Care Provider Activ e Team Status: Inactive Member Role Status Dates Peter You DO Attending Provider Active Raul Peter PA-C Primary Care Provider Activ e Team Status: Active Member Role Status Dates NON STAFF Primary Care Provider Active Team Status: Active Member Role Status Dates Raul Peter PA-C Primary Care Provider Activ e Start: June 02, 2023 Anu Francisco RPH Attending Provider Active Start: June 02, 2023 Team Status: Inactive Member Role Status Dates Felipe Rock APRN Attending Provider Active Start: July 09, 2023 End: July 09, 2023 NON STAFF Primary Care Provider Active Start: July 09, 2023 End: July 09, 2023 Goals (unrecognized section and content) Goals may be documented in a n alternate sectionGoals may be documented in an alternate section FOR RECORDS PERTAINING TO PATIENTS [...] BE BASED ON THE PRIMARY CLINICAL RECORDS. [employer] provides no warranty or guarantee of the accuracy or completeness of information in this document.
[2023-08-18 11:51] LABS: Hematocrit 44.8 % (42.0-54.0); Hemoglobin 14.7 g/dL (14.0-18.0); Mean Corpuscular HGB Conc 32.8 g/dL (29.9-35.2); Mean Corpuscular Hemoglobin 28.1 pg (25.9-34.0); Mean Corpuscular Volume 85.5 fL (80.0-94.0); Platelet Count 229 10^3/uL (150-450); Red Blood Count 5.24 10^6/uL (4.70-6.10); Red Cell Distribution Width 12.8 % (11.0-15.0); White Blood Count 9.4 10^3/uL (4.0-11.0)
[2023-08-18 12:03] LABS: Alanine Aminotransferase 196 U/L (16-63); Albumin Globulin Ratio 0.9; Albumin Level 3.4 g/dL (3.4-5.0); Alkaline Phosphatase 106 U/L (46-116); Anion Gap 12.6; Aspartate Amino Transferase 105 U/L (15-37); BUN Creatinine Ratio 20.6; Bilirubin Total 0.4 mg/dL (0.2-1.0); Calcium 9.3 mg/dL (8.5-10.1); Carbon Dioxide 25.8 mmol/L (21.0-32.0); Chloride 102 mmol/L (98-107); Chol HDL Ratio 5.2; Cholesterol 197 mg/dL (<=200); Estimated GFR (African America >60 (>=60); Estimated GFR (Non-African Ame >60 (>=60); Globulin 3.7 g/dL; Glucose 296 mg/dL (74-106); HDL Cholesterol 38 mg/dL (40-60); Potassium 4.4 mmol/L (3.5-5.1); Sodium 136 mmol/L (136-145); Total Protein 7.1 g/dL (6.4-8.2); Triglycerides 259 mg/dL (<=150); VLDL CHOLESTEROL 51.8 mg/dL
[2023-08-18 13:01] LABS: Estimated Average Glucose 303 mg/dL; Glycohemoglobin A1C 12.2 % (4.5-6.2)
== END 2023-08-18 11:09 | disposition home or self-care (01) ==
LOC: LAB 11:10
PROVIDERS: PCP Nurse Practitioner; Visit Provider Nurse Practitioner
DX: E11.9 Type 2 diabetes mellitus without complications (principal); I10 Essential (primary) hypertension
CPT/HCPCS: 36415; 80053; 80061; 83036; 85027

== ENCOUNTER 2024-02-10 14:12 | Emergency (ER) | payer MEDICARE, MEDICAID, SELFPAY ==
[2024-02-10 14:14] VITALS: BP 194/113; PULSE 84; TEMP 36.9; O2SAT 96; BMI 45.8
--- OUTSIDE RECORDS SUMMARY | 2024-02-10 14:20 | XMS_ITS | CCD ---
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 Active Member Role Status Dates Daniela Kline PA-C Primary Care Provider Activ e Start: June 02, 2023 Anu Francisco RPH Attending Provider Active Start: June 02, 2023 Team Status: Inactive Member Role Status Dates Felipe Rock APRN Attending Provider Active Start: July 09, 2023 End: July 09, 2023 NON STAFF Primary Care Provider Active Start: July 09, 2023 End: July 09, 2023 Team Status: Inactive Member Role Status Dates NON STAFF Primary Care Provider Active Start: October 13, 2023 End: October 13, 2023 ESTEFANI Vargas Attending Provider Active Start: October 13, 2023 End: October 13, 2023 Goals (unrecognized section and content) Goals may be documented in a n alternate sectionGoals may be documented in an alternate sectionGoals may be documented in an alternate sectionGoals may be documented in an [...] BE BASED ON THE PRIMARY CLINICAL RECORDS. [employer] provides no warranty or guarantee of the accuracy or completeness of information in this document.
[2024-02-10 14:54] VITALS: BP 182/94
[2024-02-10] MEDS: KETOROLAC TROMETHAMINE 30 MG/ML VIAL IM (15:08)
[2024-02-10] MEDS: ORPHENADRINE 60 MG/ 2 ML VIAL IM (15:08)
--- NOTE | 2024-02-10 15:52 | ED_ITS ---
HPI - Extremity Problem General Chief complaint: Extremity Problem, Nontraumatic Stated complaint: Lower Pain Time Seen by Provider: 02/10/24 14:27 Source: patient Mode of arrival: ambulance History of Present Illness HPI Narrative: The patient presented to us with a back pain by the EMS, when arrived the patient took his shoes off and lay in the bed and his side and he closes eyes like his want to sleep, apparently he was trying to reach his sister but she changed her address, the patient was not showing that he is in any distress, and he is not very cooperative with the examination as he just wants to lay on his side and sleep He is providing the history while his eyes closed most of the time and he is on his side Patient complaining of right sided back pain that apparently started over the last few days although it seemed like he also had similar pain before, the pain goes down his right leg he denies any other complaints fall or trauma The patient did keep repeating that he does not think that he can go home Related Data Home Medications ?Medication ?Instructions ?Recorded ?Confirmed allopurinol 100 mg tablet 100 mg PO Q12H 09/12/22 09/12/22 dulaglutide 0.75 mg/0.5 mL 0.75 mg subcut .weekly 09/12/22 09/12/22 subcutaneous pen injector (Trulicity) gabapentin 600 mg tablet 600 mg PO TID 09/12/22 09/12/22 lisinopril 10 mg tablet 10 mg PO DAILY 09/12/22 09/12/22 meloxicam 15 mg tablet 15 mg PO DAILY 09/12/22 09/12/22 metformin 1,000 mg tablet 1,000 mg PO BID 09/12/22 09/12/22 oxybutynin chloride 15 mg 15 mg PO DAILY 09/12/22 09/12/22 tablet,extended release 24 hr Previous Rx's ?Medication ?Instructions ?Recorded cephalexin 500 mg capsule 500 mg PO TID 7 days #21 caps 09/03/22 dicyclomine 20 mg tablet 20 mg PO TID PRN abdominal pain #7 09/12/22 tabs ondansetron 4 mg disintegrating 4 mg PO Q4H PRN nausea and 09/12/22 tablet vomiting 3 days #6 tabs diclofenac sodium 50 mg 50 mg PO Q12H PRN pain #14 tabs 02/10/24 tablet,delayed release orphenadrine citrate 100 mg 100 mg PO BID PRN muscle spasm #14 02/10/24 tablet,extended release tabs Allergies Allergy/AdvReac Type Severity Reaction Status Date / Time No Known Drug Allergies Allergy Verified 09/03/22 17:37 Review of Systems ROS Status of ROS 10 or more systems reviewed and unremark able except as noted in history and below PFSH PFSH Social History Smoking status: Former smoker Exam Narrative Exam Narrative: Nurses notes and vital signs reviewed and patient is not hypoxic. General: Well-appearing and in no apparent distress. Skin: Warm, dry, no pallor noted. No rash. Head: Normocephalic, atraumatic. Neck: Supple, non-tender. Eye: Pupils are equal, round and EOMI. No scleral icterus. Ears, Nose, Mouth, and Throat: TM are clear, no nasal mucosal hypertrophy. Oral mucosa is moist, no posterior oropharynx erythema, uvula is mid-line Cardiovascular: Regular Rate and Rhythm without murmur, gallop or rub. Respiratory: No accessory muscle use or respiratory distress. Lungs are clear to auscultation, no wheezing, rales or rhonchi Chest Wall: no tenderness Back: No midline thoracic or lumbar vertebral tenderness. No CVA tenderness Musculoskeletal: normal ROM, no calf or popliteal tenderness, no lower extremity edema/swelling, right hip pain on palpation, the patient have a good anterior pulse bilaterally he is able to move his legs equally with no weakness GI: Abdomen is soft, non-distended. Normal bowel sounds. No masses appreciated. No tenderness to palpation. No rebound, guarding, or rigidity noted. Neurological: A&O x4. No cranial nerve dysfunction observed. No truncal ataxia. Moves all extremities. Sensation intact. Psychiatric: Cooperative and interactive. Normal mood and affect. Constitutional Vital Signs, click to edit/add: Last Vital Signs Temp 98.4 F 02/10/24 14:14 Pulse 84 02/10/24 14:14 Resp 18 02/10/24 14:14 BP 162/98 H 02/10/24 16:42 Pulse Ox 96 02/10/24 14:14 O2 Del Method Room Air 02/10/24 14:14 Course Vital Signs Vital signs: Vital Signs Temperature 98.4 F 02/10/24 14:14 Pulse Rate 84 02/10/24 14:14 Respiratory Rate 18 02/10/24 14:14 Blood Pressure 194/113 H 02/10/24 14:14 Pulse Oximetry 96 02/10/24 14:14 Oxygen Delivery Method Room Air 02/10/24 14:14 Temperature 98.4 F 02/10/24 14:14 Pulse Rate 84 02/10/24 14:14 Respiratory Rate 18 02/10/24 14:14 Blood Pressure 162/98 H 02/10/24 16:42 Pulse Oximetry 96 02/10/24 14:14 Oxygen Delivery Method Room Air 02/10/24 14:14 MDM - Extremity (Nontraumatic) MDM Narrative Medical decision making narrative: It was noted that the patient blood pressure elevated upon arrival but he mentioned that he did not take his medication today or yesterday It was noted that the patient on multiple occasion expressed his feeling that he just does not want to go home and apparently could not find someone to spend the evening of with The patient was asleep most of the time he was in the ER and he would not wake up even to provide history The patient after getting Toradol and Norflex he was feeling better and he was discharged with his sister who took him home The patient is to follow up with primary care physician in next 2-3 days or to return to the emergency department should any of the signs or symptoms worsen or new symptoms develop. The patient agrees with the following Diagnosis and Treatment plan and the patient will be discharged home. Discharge Plan Discharge Chief Complaint: Extremity Problem, Nontraumatic Clinical Impression: Back pain, Hip pain Patient Disposition: Home, Self-Care Time of Disposition Decision: 16:42 Condition: Good Prescriptions / Home Meds: New diclofenac sodium 50 mg tablet,delayed release (DR/EC) 50 mg PO Q12H PRN (Reason: pain ) Qty: 14 0RF orphenadrine citrate 100 mg tablet extended release 100 mg PO BID PRN (Reason: muscle spasm) Qty: 14 0RF No Action cephalexin 500 mg capsule 500 mg PO TID 7 Days Qty: 21 0RF allopurinol 100 mg tablet 100 mg PO Q12H Trulicity 0.75 mg/0.5 mL pen injector 0.75 mg SUBCUT .weekly gabapentin 600 mg tablet 600 mg PO TID metformin 1,000 mg tablet 1,000 mg PO BID oxybutynin chloride 15 mg tablet extended release 24hr 15 mg PO DAILY meloxicam 15 mg tablet 15 mg PO DAILY lisinopril 10 mg tablet 10 mg PO DAILY dicyclomine 20 mg tablet 20 mg PO TID PRN (Reason: abdominal pain) Qty: 7 0RF ondansetron 4 mg tablet,disintegrating 4 mg PO Q4H PRN (Reason: nausea and vomiting) 3 Days Qty: 6 0RF Print Language: Serbian Instructions: Back Pain (ED), Hip Pain (ED) Referrals: Physician,Non-Staff, MD [Primary Care Provider] - 1 week Discharge Date/Time: 02/10/24 17:01
[2024-02-10 16:42] VITALS: BP 162/98
== END 2024-02-10 17:01 | disposition home or self-care (01) ==
PROVIDERS: Emergency Provider Emergency Medicine
DX: M54.9 Dorsalgia, unspecified (principal); M25.551 Pain in right hip; Z87.891 Personal history of nicotine dependence
CPT/HCPCS: 96372; 99284; J1885; J2360

== ENCOUNTER 2024-02-19 12:42 | Emergency (ER) | payer MEDICARE, SELFPAY ==
[2024-02-19 12:54] VITALS: BP 172/105; PULSE 92; TEMP 36.7; O2SAT 95; BMI 43.6
--- NOTE | 2024-02-19 13:09 | XR_ITS ---
[address] [address] Patient Name: RAJNI VILLARREAL MRN: [id number] date: 1960 Sex: M Assigned Patient Location: ER Current Patient Location: ER Accession/Order Number: [id number] Exam Date: 02/19/2024 13:19 Report Date: 02/19/2024 13:36 At the request of: TRACEY LOZANO Procedure: XR hip RT 2V w/ pelvis PROCEDURE: XR hip RT 2V w/ pelvis COMPARISON: None. HISTORY: fall FINDINGS: BONES:Degenerative changes of the spine. Bilateral hip osteoarthritis SOFT TISSUES:Negative. No visible soft tissue swelling. EFFUSION:None visible. OTHER: Negative. XR/XR hip RT 2V w/ pelvis IMPRESSION: Degenerative changes. No acute fracture. Electronically authenticated by: PILLO FUNEZ Date: 02/19/2024 13:36
--- OUTSIDE RECORDS SUMMARY | 2024-02-19 13:13 | XMS_ITS | CCD ---
Demographics Address [address] [address] Home Phone Preferred Language en Marital Status Unknown Gnosticist Affiliation Unknown Race White Ethnic Group Not or Lati no Author Organization [facility] Care Team Providers Care Polymerization Helper Name Role Phone MARY ., DR NIYAH Barton Admitting Unavailable MARY ., DR NIYAH Barton Attending Unavailable DANIELA KLINE Primary Care Unavailable DANIELA KLINE Admitting Unavailable DANIELA KLINE Attending Unavailable DANIELA KLINE Primary Care Unavailable Hua Huerta Consulting Unavailable DANIELA KLINE Consulting Unavailable DO Peter You Attending Provider EBENEZER Kline Primary Care Provider SEKOU TERRAZAS Attending Unavailable SEKOU TERRAZAS Unavailable Unavailable Primary Care Provider UnavailSekou Mcclure Admitting Unavailable Sekou Terrazas Attending Unavailable NO FAMILY, PHYSICIAN Primary Care Unavailable Peter You DO Unavailable Medications Current Medications Medication Drug Class(es) Dates Sig (Normalized) Sig (Original) [id number] 200 actuat albuterol 0.09 mg/actuat metered dose inhaler (5 sources) beta2-Adrenergic Agonist Start: 01-02-2023 take 1 puff(s) by inhalation every six hours albuterol HFA 90 mcg/act inhaler Inhale 1 puff every 6 (six) hours if needed 01/02/2023 Active allopurinol 100 mg oral tablet (5 sources) Xanthine Oxidase Inhibitor take 1 tablet by mouth in the morning allopurinol (Zyloprim) 100 MG tablet Take 100 mg by mouth in the morning and 100 mg before bedtime. Active Blood-Glucose Meter,Continuous (Freestyle [place] 3 [place]) misc (2 sources) Start: 10-12-2023 Blood-Glucose Meter,Continuous (Freestyle [place] 3 [place]) misc Active 0 .ROUTE .MEDSUPPLY 1 October 12, 2023 12:00am As directed Blood-Glucose Sensor (Freestyle Jeromy 3 Sensor) device (2 sources) Start: 10-12-2023 Blood-Glucose Sensor (Freestyle Jeromy 3 Sensor) device Active 0 .ROUTE .MEDSUPPLY 2 October 12, 2023 12:00am change every 14 days diazePAM 5 mg oral tablet (5 sources) Benzodiazepine Start: 11-11-2022 take 1 tablet by mouth every eight hours as needed diazePAM (Valium) 5 MG tablet Take 5 mg by mouth every 8 (eight) hours if needed 11/11/2022 Active dicyclomine hydrochloride 20 mg oral tablet (5 sources) Anticholinergic Start: 09-12-2022 take 1 tablet by mouth four times daily as needed dicyclomine (Bentyl) 20 MG tablet Take 20 mg by mouth 4 (four) times a day as needed 09/12/2022 Active doxycycline monohydrate 100 mg oral tablet (5 sources) Tetracycline-class Drug Start: 08-22-2022 take 1 tablet by mouth in the morning doxycycline (Adoxa) 100 MG tablet Take 100 mg by mouth in the morning and 100 mg before bedtime. 08/22/2022 Active dulaglutide (Trulicity) 3 MG/0.5ML solution pen-injector (5 sources) inject 3 mg by subcutaneous injection every week dulaglutide (Trulicity) 3 MG/0.5ML solution pen-injector Inject 3 mg under the skin 1 (one) time per week Active DULoxetine 30 mg delayed release oral capsule (2 sources) Serotonin and Norepinephrine Reuptake Inhibitor Start: 02-18-2024 End: 04-18-2024 take 1 capsule by mouth once daily DULoxetine (Cymbalta) [address] capsule Indications: Degeneration of intervertebral disc of lumbar region with discogenic back pain and lower extremity pain , Polyneuropathy Take 1 capsule (30 mg) by mouth Daily Do not crush or chew. 30 capsule 1 02/18/2024 04/18/2024 Active empagliflozin 25 mg oral tablet (8 sources) Sodium-Glucose Cotransporter 2 Inhibitor Start: 07-09-2023 take 25 mg by mouth once daily empagliflozin (Jardiance) 25 MG Take 25 mg by mouth Daily 07/09/2023 Active furosemide 40 mg oral tablet (5 sources) Loop Diuretic take 1 tablet by mouth in the morning furosemide (Lasix) 40 MG tablet Take 40 mg by mouth in the morning and 40 mg before bedtime. Active gabapentin 600 mg oral tablet (8 sources) Anti-epileptic Agent Start: 07-09-2023 take 600 mg by mouth three times daily Gabapentin Active 600 MG PO Three times daily July 09, 2023 12:00am 200 actuat ipratropium bromide 0.017 mg/actuat metered dose inhaler (8 sources) Anticholinergic Start: 07-09-2023 take 1 puff(s) by inhalation every eight hours Ipratropium [place] (Atrovent Hfa) 17 mcg/actuation HFA aerosol inhaler Active 2 PUFF INHALATION Every 8 hours July 09, 2023 12:00am ipratropium (Atr ovent) 17 MCG/ACT inhaler Inhale 2 puffs Active lisinopril 40 mg oral tablet (8 sources) Angiotensin Converting Enzyme Inhibitor Start: 07-09-2023 take 40 mg by mouth once daily Lisinopril Active 40 MG PO Daily July 09, 2023 12:00am take 1 tablet by mouth once andrew y lisinopril 10 MG tablet Take 10 mg by mouth Daily Active meloxicam 15 mg oral tablet (8 sources) Nonsteroidal Anti-inflammatory Drug Start: 07-09-2023 take 15 mg by mouth once daily Meloxicam Active 15 MG PO Daily July 09, 2023 12:00am metFORMIN hydrochloride 1000 mg oral tablet (5 sources) Biguanide take 1 tablet by mouth in the morning metFORMIN (Glucophage) 1000 MG tablet Take 1,000 mg by mouth in the morning and 1,000 mg in the evening. Take with meals. Active ondansetron 4 mg disintegrating oral tablet (5 sources) Serotonin-3 Receptor Antagonist Start: 09-12-2022 take 1 tablet by mouth every eight hours as needed ondansetron ODT (Zofran-ODT) 4 MG disintegrating tablet Take 4 mg by mouth every 8 (eight) hours if needed 09/12/2022 Active 24 hr oxybutynin chloride 15 mg extended release oral tablet (8 sources) Cholinergic Muscarinic Antagonist Start: 07-09-2023 take 15 mg by mouth once daily Oxybutynin Chloride Active 15 MG PO Daily July 09, 2023 12:00am potassium chloride 10 meq extended release oral tablet (5 sources) take 1 tablet by mouth in [...] Semaglutide,0.25 or 0.5MG/DOS, 2 MG/3ML solution pen-injector (5 sources) Start: 07-09-2023 inject 0.5 mg by [...] before activity SITagliptin 100 mg oral tablet (8 sources) Dipeptidyl Peptidase 4 Inhibitor Start: 03-24-2023 End: 07-09-2023 take 1 tablet by mouth once daily Januvia 100 MG tablet Take 100 mg by mouth Daily 03/24/2023 Active triamcinolone acetonide 1 mg/ml topical cream [...] 09, 2023 12:00am July 09, 2023 4:44pm FLUoxetine 40 mg oral capsule (5 sources) Serotonin Reuptake Inhibitor End: 02-18-2024 FLUoxetine (PROzac) 40 MG capsule Take 60 mg by mouth Daily 02/18/2024 Discontinued (Other) Semaglutide (3 sources) Start: 07-09-2023 End: 10-12-2023 Semaglutide (Ozempic) 0.25 mg or 0.5 mg (2 mg/3 mL) pen injector Discontinued 0.5 MG SUBCUT every week July 09, 2023 12:00am October 12, 2023 10:39am Start: 07-09-2023 Semaglutide (O zempic) 0.25 mg or 0.5 mg (2 mg/3 mL) pen injector Active 0.5 MG SUBCUT every week July 09, 2023 12:00am tiZANidine 4 mg oral capsule (8 sources) Central alpha-2 Adrenergic Agonist Start: 07-09-2023 End: 10-12-2023 take 4 mg by mouth twice daily Tizanidine Discontinued 4 MG PO Twice daily July 09, 2023 12:00am October 12, 2023 10:29am traMADol hydrochloride 50 mg oral tablet (5 sources) Opioid Agonist End: 02-18-2024 take 2 tablets by mouth every six hours as needed traMADol (Ultram) 50 MG tablet Take 100 mg by mouth every 6 (six) hours if needed 02/18/2024 Discontinued (Other) Problems Active Problems Problem Classification Problem Date Documented Date Episodic/Chronic Administrative/social admission (8 sources) Patient encounter status; Translations: [Dietary counseling and surveillance] 07-09-2023 Episodic Biliary tract disease (1 source) Calculus of gallbladder without cholecystitis without obstruction; Translations: [CALCU GB W/O CHOLECYST W/O OBST] Onset: 06-01-2022 Episodic Diabetes mellitus with complications (14 sources) Hyperglycemia due to type 2 diabetes [...] Onset: 05-27-2022 Episodic Other nervous system disorders (2 sources) Polyneuropathy; Translations: [Polyneuropathy, unspecified] 02-18-2024 Chronic Other non-traumatic joint disorders (2 sources) Chronic pain of right upper limb; Translations: [Pain in right shoulder] 02-18-2024 Episodic Other nutritional; endocrine; and metabolic disorders [...] Spondylosis; intervertebral disc disorders; other back problems (15 sources) Degeneration of cervical intervertebral disc; Translations: [Other cervical disc degeneration, unspecified cervical region] Onset: 06-10-2023 06-10-2023 Chronic Spondylosis; intervertebral disc disorders; other back problems (17 sources) Cervical radiculopathy; Translations: [Radiculopathy, cervical region] Onset: 06-10-2023 06-10-2023 Episodic Past or Other Problems Problem Classification Problem Date Documented Da te Episodic/Chronic Other nervous system disorders (6 sources) Paresthesia; Translations: [Paresthesia of skin] Onset: 06-10-2023 06-10-2023 Episodic Other non-traumatic joint disorders (5 sources) Pain in right shoulder; Translations: [Pain in joint, shoulder region] Onset: 06-10-2023 06-10-2023 Episodic Results Test Name Value Interpretation Reference Range Facility XR pre/post mri xrayon 01-24 XR pre/post mri xray [address] [address] MRI Report Signed Patient: Tristin Jernigan MR#: [id number] : 1960 Acct:[id number] Age/Sex: 63 / M ADM Date: 01/25/24 Loc: [facility] Room: Type: [facility] Attending Dr: Sekou GREEN Copies to: NORMA Villagomez Ordering Provider: NORMA Villagomez Date of Service: 01/25/24 MR/MR lumbar spine wo con: M54.17 ([id number]) XR/XR pre/post mri xray: LUMBAR MRI MR [...] Daniel Hobson M.D.01/25/2024 3:38 PM Dictation Location: [place] [address] Transcribed By: CAN 01/25/24 1538 Dictated By: Jose Daniel Hobson II, MD 01/25/24 1528 Signed By: 01/25/24 1538 Normal [facility] EMG 2 Extremitieson 01-21-20 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 [facility] EMG 2 ExtremitiesOrdered By: Peter You on 01-21-2024 [facility] Work Phone: [facility] 9-10 Nerveson 01-21-2024 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 [facility] US SINGLE QUAD RT UPPERon US SINGLE [...] by: HUA HUERTA Date: 2022-05-27 15:43 Normal [facility] Vital Signs Date Time Vital Sign Value Performing Clinician Facility 02-18-2024 10:56-0500 Body height 172.7 cm Sekou Terrazas ACADEMIC ADVISER Work Phone: [facility] 02-18-2024 10:56-0500 Body mass index (BMI) [Ratio] 39.84 kg/m2 Sekou Terrazas ACADEMIC ADVISER Work Phone: [facility] 02-18-2024 10:56-0500 Body weight 118.84 kg Sekou Terrazas ACADEMIC ADVISER Work Phone: [facility] 02-18-2024 10:56-0500 Diastolic blood pressure 80 mm[Hg] Sekou Terrazas ACADEMIC ADVISER Work Phone: [facility] 02-18-2024 10:56-0500 Heart rate 96 /min Sekou Terrazas ACADEMIC ADVISER Work Phone: [facility] 02-18-2024 10:56-0500 SaO2% (BldA) [Mass fraction] 97 % Sekou Terrazas ACADEMIC ADVISER Work Phone: [facility] 02-18-2024 10:56-0500 Systolic blood pressure 142 mm[Hg] Sekou Terrazas ACADEMIC ADVISER Work Phone: [facility] 10-12-2023 10:22-0400 Diastolic blood pressure 86 mm[Hg] [facility] 10-12-2023 10:22-0400 Systolic blood pressure 135 mm[Hg] [facility] 10-12-2023 10:20-0400 Body height 162.56 cm [facility] 10-12-2023 10:20-0400 Body mass index (BMI) [Ratio] 46.2 kg/m2 [facility] 10-12-2023 10:20-0400 Body weight 122.21 kg [facility] 10-12-2023 10:20-0400 Heart rate 90 /min [facility] 10-12-2023 10:20-0400 Respiratory rate 18 /min [facility] 10-12-2023 10:20-0400 SaO2% (BldA) [Mass fraction] 94 % [facility] 07-09-2023 15:12-0400 Body height 162.56 cm [facility] 07-09-2023 15:12-0400 Body mass index (BMI) [Ratio] 48.9 kg/m2 [facility] 07-09-2023 15:12-0400 Body weight 129.27 kg [facility] 07-09-2023 15:12-0400 Diastolic blood pressure 100 mm[Hg] [facility] 07-09-2023 15:12-0400 Heart rate 87 /min [facility] 07-09-2023 15:12-0400 Respiratory rate 18 /min [facility] 07-09-2023 15:12-0400 SaO2% (BldA) [Mass fraction] 95 % [facility] 07-09-2023 15:12-0400 Systolic blood pressure 174 mm[Hg] [facility] Encounters Encounter Date Encounter Type Care Provider Facility Start: 02-18-2024 End: 02-18-2024 Bamboo flowsheet Sekou Terrazas ACADEMIC ADVISER Work Phone: [facility] [address] Start: 02-18-2024 End: 02-18-2024 Bamboo flowsheet Sekou Terrazas ACADEMIC ADVISER Work Phone: [facility] [address] Start: 02-18-2024 End: 02-18-2024 Office outpatient visit 25 minutes Sekou Terrazas ACADEMIC ADVISER Work Phone: [employer] [address] Comment on above: Lumbosacral radiculo syed (Primary Dx); Degeneration of intervertebral disc of lumbar region with discogenic back pain and lower extremity pain; DDD (degenerative disc disease), cervical; Chronic right shoulder pain; Polyneuropathy; Type 2 diabetes mellitus with diabetic polyneuropathy, without long-term current use of insulin ([facility]); Encounter for medication monitoring Start: 01-25-2024 End: 01-25-2024 ambulatory Sekou Chaidez Terrazas Facility:[facility] Start: 01-21-2024 End: 01-21-2024 Bamboo flowsheet Peter You DO Work Phone: [employer] [address] Start: 01-21-2024 End: 01-21-2024 [employer] Peter You DO Work Phone: [employer] [address] Start: 01-21-2024 End: 01-21-2024 Patient encounter procedure Ankurchristen You DO Work Phone: [employer] [address] Comment on above: Type 2 diabetes ashtyn itus with diabetic polyneuropathy, without long-term current use of insulin ([facility]); Paresthesia Start: 10-13-2023 End: 10-13-2023 [facility] Work Phone: Start: 10-13-2023 End: 10-13-2023 Patient encounter procedure [facility] Work Phone: Start: 10-12-2023 End: 10-12-2023 ambulatory [facility] Work Phone: Start: 10-12-2023 End: 10-12-2023 Patient encounter procedure [facility] Work Phone: Start: 08-10-2023 End: 08-10-2023 ambulatory SEKOU TERRAZAS Not Available Start: 07-09-2023 End: 07-09-2023 ambulatory [facility] Work Phone: Start: 07-09-2023 End: 07-09-2023 Patient encounter procedure [facility] Work Phone: Start: 06-10-2023 End: 06-10-2023 ambulatory SEKOU TERRAZAS Not Available Start: 06-02-2023 Non-patient / Non-visit [facility] Work Phone: Start: 09-24-2022 End: 09-24-2022 ambulatory EBENEZER Kline Work Phone: [facility] Work Phone: Start: 09-24-2022 End: 09-24-2022 Discharged Recurring EBENEZER Kline Work Phone: [facility]-Physical Therapy [facility] Start: 05-27-2022 End: 05-28-2022 ambulatory DANIELA KLINE Facility:[facility] Start: 10-29-[address] NIYAH HERNANDEZ . Faci lity:[facility]1 Procedures Date Procedure Procedure Detail Performing Clinician Start: 01-21-2024 End: 01-21-2024 Needle emg ea extremty w/paraspinl area complete Sekou Terrazas NP Work Phone: Plan of Treatment Date Care Activity Detail Author Start: 03-22-2024 End: 03-22-2024 Patient encounter procedure 03/22/2024 2:20 PM EST Office Visit [facility] [address] [place] [phone] Sekou Terrazas NP [address] [place] [phone] [facility] [address] Start: 02-18-2024 End: 02-17-2025 Cobalamin (Vitamin B12) [Mass/volume] in Serum or Plasma Vitamin B12 Lab Routine Polyneuropathy Encounter for medication monitoring Expected: 02/18/2024 (Approximate), Expires: 02/17/2025 [facility] Comment on above: Expected: 02/18/2024 (Approximate), Expi res: 02/17/2025 Start: 02-18-2024 End: 02-17-2025 IMMUNOFIXATION,SERUM ([facility]) IMMUNOFIXATION,SERUM ([facility]) Lab Routine Polyneuropathy Expected: 02/18/2024 (Approximate), Expires: 02/17/2025 [facility] Comment on above: Expected: 02/18/2024 (Approximate), Expi res: 02/17/2025 Start: 02-18-2024 End: 02-17-2025 Methylmalonate [Moles/volume] in Serum or Plasma Methylmalonic acid, serum Lab Routine Polyneuropathy Encounter for medication monitoring Expected: 02/18/2024 (Approximate), Expires: 02/17/2025 [facility] Comment on above: Expected: 02/18/2024 (Approximate), Expi res: 02/17/2025 Start: 02-18-2024 End: 02-17-2025 Nuclear Ab [Titer] in Serum by Immunofluorescence JOSÉ ANTONIO Lab Routine Polyneuropathy Expected: 02/18/2024 (Approximate), Expires: 02/17/2025 [facility] Comment on above: Expected: 02/18/2024 (Approximate), Expi res: 02/17/2025 Start: 02-18-2024 End: 02-17-2025 Protein electrophoresis, serum Protein electrophoresis, serum Lab Routine Polyneuropathy Expected: 02/18/2024 (Approximate), Expires: 02/17/2025 [facility] Comment on above: Expected: 02/18/2024 (Approximate), Expi res: 02/17/2025 Start: 02-18-2024 End: 02-17-2025 Thyrotropin [Units/volume] in Serum or Plasma TSH Lab Routine Polyneuropathy Encounter for medication monitoring Expected: 02/18/2024 (Approximate), Expires: 02/17/2025 [facility] Work Phone: Comment on above: Expected: 02/18/2024 (Approximate), Expi res: 02/17/2025 Start: 02-18-2024 End: 02-18-2024 Patient encounter procedure [facility] [address] Comment on above: Arrived Start: 11-22-2023 Pneumococcal Vaccine: 65+ Years (1 of 1 - PCV) Pneumococcal Vaccine: 65+ Years (1 of 1 - PCV) [facility] Start: 10-18-2023 Influenza vaccination Influenza Vaccine (#1) [facility] Start: 07-09-2023 Patient referral [facility] Work Phone: Start: 1960 Screening for malignant neoplasm of colon [facility] Comprehensive metabo lic 2000 panel - Serum or Plasma [facility] Patient Education Diabetes and diet [facility] Work Phone: Patient referral [facility] Work Phone: [facility] Immunizations Immunization Date Immunization Notes Care Provider Fa cility 12-12-2020 influenza virus vaccine, unspecified formulation Ankurchristen You Work Phone: [facility] Payers Date Payer Category Payer Medicare (Managed Care) CARMEN[employer]A Avinash EDICARE ADVANTAGE [id number] 2024 Self-pay 2023 Medicaid [employer] MEDICARE A DVANTAGE [id number] 2023 Private Health Insurance [id number] 2022 Medicaid [id number] 1961 Unknown [id number] 1960 Unknown [id number] 1960 Unknown [id number] 1960 Unknown [id number] 1960 Unknown [id number] Private Health Insurance [facility] ILANA [id number] Unknown [id number] Social History Date Type Detail Facility Tobacco smoking stat [facility] Unknown if ever smoked [facility] Work Phone: Start: 1960 Sex Assigned At Male [facility] Start: 06-10-2023 [facility] History of tobacco use Current smoker [facility] Start: 06-10-2023 Tobacco use and exposure User of smokeless tobacco [facility] History of tobacco use Chews Tobacco [facility] Start: 08-10-2023 End: 02-18-2024 Alcoholic beverage intake Ex-drinker (finding) [facility] Start: 08-10-2023 End: 02-18-2024 History of Social function [facility] Start: 08-10-2023 End: 02-18-2024 Tobacco use panel [facility] Start: 06-10-2023 Tobacco Comment Quit smoking in 1976 [facility] Start: 06-10-2023 Alcohol Comment No caffeine intake [facility] Start: 1960 Sex assigned at Not on file [facility] Start: 02-18-2024 Alcohol Comment No alcohol use since 03/19/2019. No caffeine intake [facility] History of Present illness Narrative 02-18-2024 Sekou Terrazas NP - 02/18/2024 11:00 AM EST Note Date & Type Note Facility 02-18-2024 History of Presen t illness Narrative Images from the original note were not included. Chief Complaint Patient presents with Back Pain Neck Pain Subjective Tristin Jernigan is a 63 y.o. male. History of Present Illness The patient presents today for a follow-up. He had an EMG of the bilateral lower extremities and MRI of the lumbar spine completed for review. He has not seen pain management since the neurology appointment on 08/10/2023. He states he needs to do this soon. He is taking meloxicam 15 mg daily and gabapentin. He does not take his gabapentin as prescribed and admits to taking this medication inconsistently. He states sometimes he will take gabapentin 600 mg three times a day but other times he will not take it. He cannot give a very clear reason for why. The patient has constant bilateral back pain. He states severity is, 10, 12, 15, 20, out of 10 when asked. His back pain can radiate to the posterior aspect of the bilateral lower extremities intermittently. He states it feels like, a swelled up rubber band trying to stretch. He denies any particular aggravating or relieving factors. He states his sciatica pain increased on [employer] [place]. He continues to have painful paresthesias and tingling in the bilateral feet. This can actually extend up to the mid calf at times. He attributes to this neuropathy. The patient reports chronic weakness in the lower extremities. He also reports some balance difficulty and still utilizes a cane to ambulate. He states he went to the emergency department one day in January 2024 for his leg pain, and they did not help him. He states, I never got a shot from them or nothing. The patient's neck pain has improved and is intermittent. He states this is tolerable. He denies weakness, numbness, or paresthesias in the upper extremities. He has not had shoulder surgery yet. He states, my A1cs so betty high, aint nobody wants to do surgery. He reports following with a diabetic specialist. He states his most recent hemoglobin A1c was 11.5%, and prior to that, it was 12.5%. Review of Systems Constitutional: Negative for appetite change, chills, fatigue, fever and unexpected weight change. HENT: Negative for trouble swallowing and voice change. Eyes: Denies visual change, double vision, or loss of vision Respiratory: Negative for cough, shortness of breath and wheezing. Cardiovascular: Negative for chest pain and palpitations. Gastrointestinal: Negative for abdominal pain, blood in stool, nausea and vomiting. Musculoskeletal: Positive for arthralgias, back pain, gait problem and neck pain. Negative for myalgias. Positive for shoulder pain Neurological: Positive for weakness (mild lower extremity). Negative for dizziness, tremors, seizures, syncope, facial asymmetry, speech difficulty, light-headedness, numbness and headaches. Positive for paresthesias Psychiatric/Behavioral: Negative for confusion, hallucinations and suicidal ideas. The patient is not nervous/anxious. Past Medical History: Diagnosis Date Asthma ([facility]) Cervical radiculopathy COPD (chronic obstructive pulmonary disease) ([facility]) Diabetes mellitus ([facility]) Gout Hypertension ([facility]) Lumbosacral radiculopathy Memory changes Past Surgical History: Procedure Laterality Date ABDOMINAL SURGERY (patient states due to ruptured large intestine) Family History Problem Relation Name Age of Onset Hypertension Father Asthma Sibling Hypertension Sibling Social History Tobacco Use Smoking status: Former Smokeless tobacco: Current Types: Chew Tobacco comments: Quit smoking in 1976 Substance Use Topics Alcohol use: Not Currently Comment: No alcohol use since 03/19/2019. No caffeine intake Allergies: Patient has no known allergies. Vitals: 02/18/24 1056 BP: 142/80 Pulse: 96 SpO2: 97% Body mass index is 39.84 kg/m . weight: 262 lb Neurologic exam: Mental status and general appearance: Awake and alert with unlabored respirations. Oriented to person, place, and time. Recent and remote memory are intact. Speech is clear and fluent without aphasia. Speech is non-dysarthric. Speech is highly circumferential and, at times, tangential. Attention and concentration are mildly impaired. Fund of knowledge is appropriate for level of education. Obese. Cranial nerves: CN II: Visual acuity is normal. Visual nuñez full to confrontation. CN III, IV, : Pupils are equal, round, and reactive to light. Extraocular movements intact. No ptosis present. CN V: Facial sensation is normal. CN VII: Full and symmetric facial movement. CN VIII: Hearing is normal to finger rub bilaterally. CN IX and X: Palate elevates symmetrically. CN XI: Shoulder shrug is normal bilaterally. CN XII: Tongue is midline without atrophy or fasciculation. Motor: RUE strength deltoid strength 4-/5. Biceps , triceps , wrist extensors , wrist flexor , and colon therapist strength 5/5. Limited range of motion in the right shoulder. LUE strength deltoid , biceps , triceps , wrist extensors , wrist flexor , and colon therapist strength 5/5. RLE strength iliopsoas, quadriceps, tibialis anterior, and plantar flexion strength 5/5. LLE strength iliopsoas, quadriceps, tibialis anterior, and plantar flexion strength 5/5. Tone is normal. Sensory: Sensation is intact to light touch throughout all four extremities. Vibratory sensation is reduced in the distal lower extremities. Reflexes: RUE biceps reflex 0, brachioradialis reflex 0.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
--- NOTE | 2024-02-19 13:44 | CT_ITS ---
The [address] [address] Patient Name: RAJNI VILLARREAL MRN: [id number] date: 1960 Sex: M Assigned Patient Location: ER Current Patient Location: ED.MAIN Accession/Order Number: [id number] Exam Date: 02/19/2024 13:50 Report Date: 02/19/2024 16:30 At the request of: TRACEY LOZANO Procedure: CT hip RT wo con EXAM: CT hip RT wo con HISTORY: fall pain with ambulation COMPARISON: None. TECHNIQUE: CT imaging of the right hip without contrast FINDINGS: No acute fracture seen. Joint alignment is normal. Joint spaces are preserved. The visualized soft tissues demonstrate a partially visualized moderate size fat-containing right inguinal hernia. CT/CT hip RT wo con IMPRESSION: No acute fracture or malalignment. Partially visualized fat-containing right inguinal hernia. Electronically authenticated by: MARGARITA LOMELI Date: 02/19/2024 16:30
[2024-02-19] MEDS: KETOROLAC TROMETHAMINE 60 MG/2 ML VIAL IM (14:07)
--- NOTE | 2024-02-19 16:43 | ED_ITS ---
Documented by User: Kelly Godoy 02/19/24 16:47 HPI HPI - General Adult General Chief complaint: Extremity Injury, Lower Stated complaint: FALL - UPPER EXTREMITY PAIN HIP PAIN Time Seen by Provider: 02/19/24 13:09 Source: patient Mode of arrival: walk-in Limitations: no limitations History of Present Illness HPI narrative: 63-year-old male presents here with chief complaint of right hip pain. Patient was walking into [employer] slipped in the water falling onto his buttocks causing right hip pain. Patient was able to get up and ambulate at the store to grab a gallon of milk and then drove home. When he got home he took his milk inside and came back here to the hospital due to right hip pain. He does walk with a cane. Denies a known history of previous fractures. Related Data Home Medications ?Medication ?Instructions ?Recorded ?Confirmed allopurinol 100 mg tablet 100 mg PO Q12H 09/12/22 09/12/22 dulaglutide 0.75 mg/0.5 mL 0.75 mg subcut .weekly 09/12/22 09/12/22 [facility] gabapentin 600 mg tablet 600 mg PO TID 09/12/22 09/12/22 lisinopril 10 mg tablet 10 mg PO DAILY 09/12/22 09/12/22 meloxicam 15 mg tablet 15 mg PO DAILY 09/12/22 09/12/22 metformin 1,000 mg tablet 1,000 mg PO BID 09/12/22 09/12/22 oxybutynin chloride 15 mg 15 mg PO DAILY 09/12/22 09/12/22 tablet,extended release 24 hr Previous Rx's ?Medication ?Instructions ?Recorded cephalexin 500 mg capsule 500 mg PO TID 7 days #21 caps 09/03/22 dicyclomine 20 mg tablet 20 mg PO TID PRN abdominal pain #7 09/12/22 tabs ondansetron 4 mg disintegrating 4 mg PO Q4H PRN nausea and 09/12/22 tablet vomiting 3 days #6 tabs diclofenac sodium 50 mg 50 mg PO Q12H PRN pain #14 tabs 02/10/24 tablet,delayed release orphenadrine citrate 100 mg 100 mg PO BID PRN muscle spasm #14 02/10/24 tablet,extended release tabs Allergies Allergy/AdvReac Type Severity Reaction Status Date / Time No Known Drug Allergies Allergy Verified 02/19/24 12:54 Opioid HPI Opioid Management Most Recent Opioid Data: Last Pain Scale 10 02/19/24 14:07 02/19/24 Last MAR Pain Assessment 02/19/24 14:07 Ur Phencyclidine Scrn Negative (NEGATIVE) 06/11/23 10:40 04/07/09 Review of Systems ROS Narrative All Systems are negative except as noted/marked.All systems reviewed and otherwise negative PFSH PFSH Social History Smoking status: Former smoker Little interest or pleasure in doing things: not at all Feeling down, depressed, or hopeless: not at all Exam Narrative Exam Narrative: Nurses note and vital signs reviewed and patient is not hypoxic. General: The patient appears well and in no apparent distress. Patient is resting comfortably on cart. Skin: Warm, dry, no pallor noted. There is no rash noted. Head: Normocephalic, atraumatic Eye: Normal conjunctiva, no drainage, EOMI. PERRL Ears, Nose, Mouth, and Throat: oral mucosa is moist. Nares patent. Mouth without vesicles. Ear canals patent. Tm's without Erythema Cardiovascular: Regular Rate and Rhythm Respiratory: Patient is in no distress, no accessory muscle use, lungs are clear to auscultation, no wheezing, rales or rhonchi Back: non-tender, no CVA tenderness bilaterally to percussion. GI: no leg shortening, normal bowel sounds, no tenderness to palpation, no masses appreciated. No rebound, guarding, or rigidity noted. Musculoskeletal: No acute deformity dislocation of the right lower extremity, no leg shortening, remedies unremarkable. Neurological: A&O x4, normal speech Psychiatric: Cooperative Constitutional Vital Signs, click to edit/add: Last Vital Signs Temp 98.1 F 02/19/24 12:54 Pulse 92 H 02/19/24 12:54 Resp 20 02/19/24 12:54 BP 172/105 H 02/19/24 12:54 Pulse Ox 95 02/19/24 12:54 O2 Del Method Room Air 02/19/24 12:54 Course Vital Signs Vital signs: Vital Signs Temperature 98.1 F 02/19/24 12:54 Pulse Rate 92 H 02/19/24 12:54 Respiratory Rate 20 02/19/24 12:54 Blood Pressure 172/105 H 02/19/24 12:54 Pulse Oximetry 95 02/19/24 12:54 Oxygen Delivery Method Room Air 02/19/24 12:54 Temperature 98.1 F 02/19/24 12:54 Pulse Rate 92 H 02/19/24 12:54 Respiratory Rate 20 02/19/24 12:54 Blood Pressure 172/105 H 02/19/24 12:54 Pulse Oximetry 95 02/19/24 12:54 Oxygen Delivery Method Room Air 02/19/24 12:54 Medical Decision Making Differential Diagnosis Differential Diagnosis: hip pain, fracture Medical Records Medical records reviewed: Yes I reviewed the patient's medical records Medical records narrative: Here chief complaint right hip pain. He was medicated here with Toradol. He slipped and fell at home. He said he had excruciating pain after x-ray of the shows no acute fracture. right hip pain continues CT scan was performed. Patient did ambulate here was able to bear weight. He will walk with a cane. CT of the right hip shows no acute fracture pt states he has a family member that will be coming to the house Lab Data Lab results reviewed: Yes I reviewed the patient's lab results Imaging Data hip: Radiologist's impression: ITS Impressions Hip/Pelvis X-Ray 02/19/24 13:09 IMPRESSION: Degenerative changes. No acute fracture. Electronically authenticated by: PILLO FUNEZ Date: 02/19/2024 13:[address] 02/19/24 13:44 IMPRESSION: No acute fracture or malalignment. Partially visualized fat-containing right inguinal hernia. Electronically authenticated by: MARGARITA LOMELI Date: 02/19/2024 16:30 Discharge Plan Discharge Chief Complaint: Extremity Injury, Lower Clinical Impression: Hip pain, Back pain Patient Disposition: Home, Self-Care Time of Disposition Decision: 16:39 Condition: Good Prescriptions / Home Meds: No Action cephalexin 500 mg capsule 500 mg PO TID 7 Days Qty: 21 0RF allopurinol 100 mg tablet 100 mg PO Q12H Trulicity 0.75 mg/0.5 mL pen injector 0.75 mg SUBCUT .weekly gabapentin 600 mg tablet 600 mg PO TID metformin 1,000 mg tablet 1,000 mg PO BID oxybutynin chloride 15 mg tablet extended release 24hr 15 mg PO DAILY meloxicam 15 mg tablet 15 mg PO DAILY lisinopril 10 mg tablet 10 mg PO DAILY dicyclomine 20 mg tablet 20 mg PO TID PRN (Reason: abdominal pain) Qty: 7 0RF ondansetron 4 mg tablet,disintegrating 4 mg PO Q4H PRN (Reason: nausea and vomiting) 3 Days Qty: 6 0RF diclofenac sodium 50 mg tablet,delayed release (DR/EC) 50 mg PO Q12H PRN (Reason: pain ) Qty: 14 0RF orphenadrine citrate 100 mg tablet extended release 100 mg PO BID PRN (Reason: muscle spasm) Qty: 14 0RF Print Language: Citizen Of [place] Instructions: Back Pain (ED), P.R.I.C.E. Treatment (ED), Hip Pain (ED) Referrals: Physician,Non-Staff, [Primary Care Provider] - 1 week Hua Clarke MD [Physician] - 02/22/24 12:30 pm Discharge Date/Time: 02/19/24 16:56 Documented by User: Gene Sharpe MD 02/19/24 19:34 HPI HPI - General Adult General Chief complaint: Extremity Injury, Lower Stated complaint: FALL - UPPER EXTREMITY PAIN HIP PAIN Time Seen by Provider: 02/19/24 13:09 Related Data Home Medications ?Medication ?Instructions ?Recorded ?Confirmed allopurinol 100 mg tablet 100 mg PO Q12H 09/12/22 09/12/22 dulaglutide 0.75 mg/0.5 mL 0.75 mg subcut .weekly 09/12/22 09/12/22 subcutaneous pen injector ([facility]) gabapentin 600 mg tablet 600 mg PO TID 09/12/22 09/12/22 lisinopril 10 mg tablet 10 mg PO DAILY 09/12/22 09/12/22 meloxicam 15 mg tablet 15 mg PO DAILY 09/12/22 09/12/22 metformin 1,000 mg tablet 1,000 mg PO BID 09/12/22 09/12/22 oxybutynin chloride 15 mg 15 mg PO DAILY 09/12/22 09/12/22 tablet,extended release 24 hr Previous Rx's ?Medication ?Instructions ?Recorded cephalexin 500 mg capsule 500 mg PO TID 7 days #21 caps 09/03/22 dicyclomine 20 mg tablet 20 mg PO TID PRN abdominal pain #7 09/12/22 tabs ondansetron 4 mg disintegrating 4 mg PO Q4H PRN nausea and 09/12/22 tablet vomiting 3 days #6 tabs diclofenac sodium 50 mg 50 mg PO Q12H PRN pain #14 tabs 02/10/24 tablet,delayed release orphenadrine citrate 100 mg 100 mg PO BID PRN muscle spasm #14 02/10/24 tablet,extended release tabs Allergies Allergy/AdvReac Type Severity Reaction Status Date / Time No Known Drug Allergies Allergy Verified 02/19/24 12:54 Opioid HPI Opioid Management Most Recent Opioid Data: Last Pain Scale 10 02/19/24 14:07 02/19/24 Last MAR Pain Assessment 02/19/24 14:07 Ur Phencyclidine Scrn Negative (NEGATIVE) 06/11/23 10:40 04/2 07/09 PFSH PFSH Social History Smoking status: Former smoker Little interest or pleasure in doing things: not at all Feeling down, depressed, or hopeless: not at all Exam Constitutional Vital Signs, click to edit/add: Last Vital Signs Temp 98.1 F 02/19/24 12:54 Pulse 92 H 02/19/24 12:54 Resp 20 02/19/24 12:54 BP 172/105 H 02/19/24 12:54 Pulse Ox 95 02/19/24 12:54 O2 Del Method Room Air 02/19/24 12:54 Course Vital Signs Vital signs: Vital Signs Temperature 98.1 F 02/19/24 12:54 Pulse Rate 92 H 02/19/24 12:54 Respiratory Rate 20 02/19/24 12:54 Blood Pressure 172/105 H 02/19/24 12:54 Pulse Oximetry 95 02/19/24 12:54 Oxygen Delivery Method Room Air 02/19/24 12:54 Temperature 98.1 F 02/19/24 12:54 Pulse Rate 92 H 02/19/24 12:54 Respiratory Rate 20 02/19/24 12:54 Blood Pressure 172/105 H 02/19/24 12:54 Pulse Oximetry 95 02/19/24 12:54 Oxygen Delivery Method Room Air 02/19/24 12:54 Medical Decision Making Medical Records Medical records narrative: Here chief complaint right hip pain. He was medicated here with Toradol. He slipped and fell at home. He said he had excruciating pain after x-ray that shows no acute fracture. right hip pain continues; CT scan was performed. Patient did ambulate here was able to bear weight. He will walk with a cane. CT of the right hip shows no acute fracture. Education on ice, stretching was done. Patient will be discharged. No signs of saddle anesthesia or cauda equina. pt states he has a family member that will be coming to the house. I, Dr Sharpe, have reviewed the above progress note and course of action in the ER; agree with the above. I have personally gone over history and physical, and discussed disposition and treatment plan with the patient. Imaging Data hip: Radiologist's impression: ITS Impressions Hip/Pelvis X-Ray 02/19/24 13:09 IMPRESSION: Degenerative changes. No acute fracture. Electronically authenticated by: PILLO FUNEZ Date: 02/19/2024 13:[address] 02/19/24 13:44
== END 2024-02-19 16:56 | disposition home or self-care (01) ==
PROVIDERS: Emergency Provider Emergency Medicine
DX: M25.551 Pain in right hip (principal); M54.9 Dorsalgia, unspecified; Z87.891 Personal history of nicotine dependence; K40.90 Unilateral inguinal hernia, without obstruction or gangrene, not specified as recurrent
CPT/HCPCS: 73502; 73700; 96372; 99285; J1885

== ENCOUNTER 2024-03-07 11:50 | Outpatient (OUT) | payer MEDICARE, SELFPAY ==
--- OUTSIDE RECORDS SUMMARY | 2024-03-07 12:08 | XMS_ITS | CCD ---
Demographics Address [address] [place] [address] Home Phone Preferred Language en Marital Status Unknown Mandaeism Affiliation Unknown Race White Ethnic Group Not or Lati no Author Organization [facility] Care Team Providers Care Senior Office Support Assistant Sosa Name Role Phone MARY ., DR NIYAH Barton Admitting Unavailable MARY ., DR NIYAH Barton Attending Unavailable DANIELA KLINE Primary Care Unavailable DANIELA KLINE Admitting Unavailable DANIELA KLINE Attending Unavailable DANIELA KLINE Primary Care Unavailable Hua Huerta Consulting Unavailable DANIELA KLINE Consulting Unavailable DO Baldo You Attending Provider [phone] EBENEZER Kline Primary Care Provider Unavailable Primary Care Provider UnavailSekou Mcclure Admitting Unavailable Sekou Terrazas Attending Unavailable NO FAMILY, PHYSICIAN Primary Care Unavailable Baldo You DO Unavailable [phone] SEKOU TERRAZAS Attending Unavailable SEKOU TERRAZAS Attending Unavailable BALDO YOU Attending Unavailable SEKOU TERRAZAS Attending Unavailable Medications Current Medications Medication Drug Class(es) Dates Sig (Normalized) Sig (Original) [id number] 200 actuat albuterol 0.09 mg/actuat metered dose [...] bedtime. Active Blood-Glucose Meter,Continuous (Freestyle Jeromy 3 [place]) misc (2 sources) Start: 10-12-2023 Blood-Glucose Meter,Continuous (Freestyle Jeromy 3 [place]) misc Active 0 .ROUTE .MEDSUPPLY 1 October [...] puff(s) by inhalation every eight hours Ipratropium [place] (Atrovent Hfa) 17 mcg/actuation HFA aerosol inhaler [...] xrayon 01-24 XR pre/post mri xray [facility] [place] [address] MRI Report Signed Patient: Tristin Jernigan MR#: [id number] : 1960 Acct:[id number] Age/Sex: 63 / M ADM Date: 01/25/24 Loc: [facility] Dr: Sekou GREEN Copies to: NORMA Villagomez Ordering Provider: NORMA Villagomez Date of Service: 01/25/24 MR/MR lumbar spine wo con: M54.17 ([id number]) XR/XR pre/post mri xray: LUMBAR MRI MR [...] Daniel Hobson M.D.01/25/2024 3:38 PM Dictation Location: [place] [address] Transcribed By: [facility] 01/25/24 1538 Dictated By: Jose Daniel Hobson II, MD 01/25/24 1528 Signed By: 01/25/24 1538 Normal [facility] EMG 2 Extremitieson 01-21-20 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 Vital Signs Date Time Vital Sign Value Performing Clinician Facility 02-18-2024 10:56-0500 Body height 172.7 cm Sekou Terrazas OPEN CLAIMS REPRESENTATIVE Work Phone: [facility] 02-18-2024 10:56-0500 Body mass index (BMI) [Ratio] 39.84 kg/m2 Sekou Terrazas OPEN CLAIMS REPRESENTATIVE Work Phone: [facility] 02-18-2024 10:56-0500 Body weight 118.84 kg Sekou Terrazas OPEN CLAIMS REPRESENTATIVE Work Phone: [facility] 02-18-2024 10:56-0500 Diastolic blood pressure 80 mm[Hg] Sekou Terrazas OPEN CLAIMS REPRESENTATIVE Work Phone: [facility] 02-18-2024 10:56-0500 Heart rate 96 /min Sekou Terrazas OPEN CLAIMS REPRESENTATIVE Work Phone: [facility] 02-18-2024 10:56-0500 SaO2% (BldA) [Mass fraction] 97 % Sekou Terrazas OPEN CLAIMS REPRESENTATIVE Work Phone: [facility] 02-18-2024 10:56-0500 Systolic blood pressure 142 mm[Hg] Sekou Terrazas OPEN CLAIMS REPRESENTATIVE Work Phone: [facility] 10-12-2023 10:22-0400 Diastolic blood pressure 86 mm[Hg] [facility] 10-12-2023 10:22-0400 Systolic blood pressure 135 mm[Hg] [facility] 10-12-2023 10:20-0400 Body height 162.56 cm [facility] 10-12-2023 10:20-0400 Body mass index (BMI) [Ratio] 46.2 kg/m2 [facility] 10-12-2023 10:20-0400 Body weight 122.21 kg [facility] 10-12-2023 10:20-0400 Heart rate 90 /min [facility] 10-12-2023 10:20-0400 Respiratory rate 18 /min [facility] 10-12-2023 10:20-0400 SaO2% (BldA) [Mass fraction] 94 % [facility] 07-09-2023 15:12-0400 Body height 162.56 cm [facility] 07-09-2023 15:12-0400 Body mass index (BMI) [Ratio] 48.9 kg/m2 [facility] 07-09-2023 15:12-0400 Body weight 129.27 kg [facility] 07-09-2023 15:12-0400 Diastolic blood pressure 100 mm[Hg] [facility] 07-09-2023 15:12-0400 Heart rate 87 /min [facility] 07-09-2023 15:12-0400 Respiratory rate 18 /min [facility] 07-09-2023 15:12-0400 SaO2% (BldA) [Mass fraction] 95 % [facility] 07-09-2023 15:12-0400 Systolic blood pressure 174 mm[Hg] [facility] Encounters Encounter Date Encounter Type Care Provider Facility Start: 02-18-2024 End: 02-18-2024 Gabby Terrazas NP Work Phone: [facility] [address] Start: 02-18-2024 End: 02-18-2024 [facility] Start: 02-18-2024 End: 02-18-2024 Office outpatient visit 25 minutes Sekou Nini OPEN CLAIMS REPRESENTATIVE Work Phone: [facility] [place] [employer] [facility] Comment on above: Lumbosacral radiculo syed (Primary Dx); Degeneration of intervertebral disc of lumbar region with discogenic back pain and lower extremity pain; DDD (degenerative disc disease), cervical; Chronic right shoulder pain; Polyneuropathy; Type 2 diabetes mellitus with diabetic polyneuropathy, without long-term current use of insulin ([facility]); Encounter for medication monitoring Start: 02-18-2024 End: 02-18-2024 ambulatory SEKOU TERRAZAS Not Available Start: 01-25-2024 End: 01-25-2024 ambulatory Sekou Kaylynn Nini Facility:[facility] Start: 01-21-2024 End: 01-21-2024 Bamboo flowsheet Baldo You DO [facility] Start: 01-21-2024 End: 01-21-2024 Bamboo flowsheet Baldo You DO Work Phone: [facility] [place] [employer] [facility] Start: 01-21-2024 End: 01-21-2024 ambulatory BALDO YOU Not Available Start: 01-21-2024 End: 01-21-2024 Patient encounter procedure Baldo You DO Work Phone: [facility] [place] [employer] [facility] Comment on above: Type 2 diabetes ashtyn itus with diabetic polyneuropathy, without long-term current use of insulin ([facility]); Paresthesia Start: 10-13-2023 End: 10-13-2023 ambulatory [facility] Work Phone: Start: 10-13-2023 End: 10-13-2023 Patient encounter procedure [facility] Work Phone: Start: 10-12-2023 End: 10-12-2023 ambulatory [facility] Work Phone: Start: 10-12-2023 End: 10-12-2023 Patient encounter procedure [facility] Work Phone: Start: 08-10-2023 End: 08-10-2023 ambulatory SEKOU NINI Not Available Start: 07-09-2023 End: 07-09-2023 ambulatory [facility] Work Phone: Start: 07-09-2023 End: 07-09-2023 Patient encounter procedure [facility] Work Phone: Start: 06-10-2023 End: 06-10-2023 ambulatory SEKOU NINI Not Available Start: 06-02-2023 Non-patient / Non-visit [facility] Work Phone: Start: 09-24-2022 End: 09-24-2022 ambulatory EBENEZER Kline Work Phone: [facility] Work Phone: Start: 09-24-2022 End: 09-24-2022 Discharged Recurring EBENEZER Kline Work Phone: [facility] Start: 05-27-2022 End: 05-28-2022 ambulatory DANIELA KLINE Facility:[facility]1 Start: 10-29-[address] NIYAH HERNANDEZ . Faci lity:H1 Procedures Date Procedure Procedure Detail Performing Clinician Start: 01-21-2024 End: 01-21-2024 Needle emg ea extremty w/paraspinl area complete Sekou Terrazas NP Work Phone: Plan of Treatment Date Care Activity Detail Author Start: 03-22-2024 End: 03-22-2024 Patient encounter procedure 03/22/2024 2:20 PM EST Office Visit [facility] [address] [place] [phone] Sekou Terrazas NP [address] [place] [phone] [facility] Start: 02-18-2024 End: 02-17-2025 Cobalamin (Vitamin B12) [Mass/volume] in Serum or Plasma Vitamin B12 Lab Routine Polyneuropathy Encounter for medication monitoring Expected: 02/18/2024 (Approximate), Expires: 02/17/2025 [facility] Comment on above: Expected: 02/18/2024 (Approximate), Expi res: 02/17/2025 Start: 02-18-2024 End: 02-17-2025 IMMUNOFIXATION,SERUM ([facility]) IMMUNOFIXATION,SERUM ([facility]) Lab Routine Polyneuropathy Expected: 02/18/2024 (Approximate), Expires: 02/17/2025 [facility] Comment on above: Expected: 02/18/2024 (Approximate), Expi res: 02/17/2025 Start: 02-18-2024 End: 02-17-2025 Methylmalonate [Moles/volume] in Serum or Plasma Methylmalonic acid, serum Lab Routine Polyneuropathy Encounter for medication monitoring Expected: 02/18/2024 (Approximate), Expires: 02/17/2025 [facility] Comment on above: Expected: 02/18/2024 (Approximate), Expi res: 02/17/2025 Start: 02-18-2024 End: 02-17-2025 Nuclear Ab [Titer] in Serum by Immunofluorescence JOSÉ ANTONIO Lab Routine Polyneuropathy Expected: 02/18/2024 (Approximate), Expires: 02/17/2025 [facility] Comment on above: Expected: 02/18/2024 (Approximate), Expi res: 02/17/2025 Start: 02-18-2024 End: 02-17-2025 Protein electrophoresis, serum Protein electrophoresis, serum Lab Routine Polyneuropathy Expected: 02/18/2024 (Approximate), Expires: 02/17/2025 [facility] Comment on above: Expected: 02/18/2024 (Approximate), Expi res: 02/17/2025 Start: 02-18-2024 End: 02-17-2025 Thyrotropin [Units/volume] in Serum or Plasma TSH Lab Routine Polyneuropathy Encounter for medication monitoring Expected: 02/18/2024 (Approximate), Expires: 02/17/2025 [facility] Work Phone: Comment on above: Expected: 02/18/2024 (Approximate), Expi res: 02/17/2025 Start: 02-18-2024 End: 02-18-2024 Patient encounter procedure [facility] [address] Comment on above: Arrived Start: 11-22-2023 Pneumococcal Vaccine: 65+ Years (1 of 1 - PCV) Pneumococcal Vaccine: 65+ Years (1 of 1 - PCV) [facility] Start: 10-18-2023 Influenza vaccination Influenza Vaccine (#1) [facility] Start: 07-09-2023 Patient referral [facility] Work Phone: Start: 1960 Screening for malignant neoplasm of colon [facility] Comprehensive metabo lic 2000 panel - Serum or Plasma [facility] Patient Education Diabetes and diet [facility] Work Phone: Patient referral [facility] Work Phone: [facility] Immunizations Immunization Date Immunization Notes Care Provider Bradley holley 12-12-2020 influenza virus vaccine, unspecified formulation Baldo You DO Work Phone: [facility] Healthcare Payers Date Payer Category Payer Medicare (Managed Care) PARTHA Da Silva EDMICHAELRE ADVANTAGE [id number] 2024 Medicare [id number] 2024 Self-pay 2023 Medicaid [employer] MED[employer]ARE A DVANTAGE [id number] 2023 Private Health Insurance [facility] [id number] 2022 Medicaid [id number] 1959 Unknown [id number] 1960 Unknown [id number] 1960 Unknown [id number] 1960 Unknown [id number] 1960 Unknown [id number] 1960 Unknown [id number] 1960 Unknown [id number] Private Health Insurance [facility] [id number] Unknown [id number] Social History Date Type Detail Facility Tobacco smoking stat [facility] Unknown if ever smoked [facility] Work Phone: Start: 1960 Sex Assigned At Male F [facility] Start: 06-10-2023 [facility] History of tobacco use Current smoker [facility] Start: 06-10-2023 Tobacco use and exposure User of smokeless tobacco [facility] History of tobacco use Chews Tobacco [facility] Start: 08-10-2023 End: 02-18-2024 Alcoholic beverage intake Ex-drinker (finding) [facility] Start: 08-10-2023 End: 02-18-2024 History of Social function [facility] Start: 08-10-2023 End: 02-18-2024 Tobacco use panel [facility] Start: 06-10-2023 Tobacco Comment Quit smoking in 1976 [facility] Start: 06-10-2023 Alcohol Comment No caffeine intake [facility] Start: 1960 Sex assigned at Not on file [facility] Start: 02-18-2024 Alcohol Comment No alcohol use since 03/19/2019. No caffeine intake [facility] History of Present illness Narrative 02-18-2024 [...] He states his sciatica pain increased on Rosaline. He continues to have painful paresthesias [...] nervous/anxious. Past Medical History: Diagnosis Date Asthma ([facility]) Cervical radiculopathy COPD (chronic obstructive pulmonary disease) ([facility] Diabetes mellitus ([facility]) Gout Hypertension ([facility]) Lumbosacral radiculopathy Memory changes Past Surgical History: [...] wrist extensors , wrist flexor , and silk screen printing racker strength 5/5. Limited range of motion in the right shoulder. LUE strength deltoid , biceps , triceps , wrist extensors , wrist flexor , and silk screen printing racker strength 5/5. RLE strength iliopsoas, quadriceps, tibialis [...] reflex 0. LLE knee reflex 0. Coordination: Hvzkuj-ne-zbfd testing normal. Rapid alternating movements are normal. Gait: Appears antalgic. Utilizing cane. Review and summary of old records: MRI of the lumbar spine without contrast at [facility] on 01/25/2024: Significant multilevel degenerative changes contributing [...] the spinal canal with moderate right and mhrnggti-fb-egmjzo left neural foraminal narrowing. At L5-S1, there [...] EMG of the bilateral lower extremities at [facility] on 01/21/2024: Bilateral chronic L5 [...] polyneuropathy, without long-term current use of insulin ([facility]) The patient has polyneuropathy as identified on [...] of neuropathy - Follow up closely with pals specialist and primary care provider to help [...] [facility] documented in this encounter [facility] Instructions 02-18-2024 Patient Instructions Note Date & Type Note Facility 02-18-2024 Instructions Sekou Terrazas NP - 02/18/2024 11:00 AM EST - Start duloxetine 30 mg by mouth once a day for chronic back pain - Referral to pain management and neurosurgery - Check labs to evaluate for causes of polyneuropathy documented in this encounter [facility] History of Present illness Narrative 01-21-2024 KIAH Melendez - 01/21/2024 11:00 AM EST Note Date & Type Note Facility 01-21-2024 History of Presen t illness Narrative Images from the original note were not included. Reason for Appointment: EMG Patient: Tristin Jernigan : 1960 EMG Computer: [employer] Referring Physician: Sekou Terrazas AUTOMATIC SEAMER EMG: TRISHA utility arborist: Alfonso Martins RT(R) Office Location: [place] Reason for EMG: c/o numbness/tingling & cramping [...] of the test. documented in this encounter [facility] Chief complaint+Reason for visit Narrative Note Date & Type Note Facility Chief complaint+Reason for visit Narrative Reason for Visit BMI 45.0-49.9, adult Dietary counseling and surveillance Hyperlipidemia Hypertension Type 2 diabetes mellitus with hyperglycemia [facility] Work Phone: Chief complaint+Reason for visit Narrative Note Date & Type Note Facility Chief complaint+Reason for visit Narrative Reason for Visit BMI 45.0-49.9, adult Dietary counseling and surveillance Hyperlipidemia Hypertension Type 2 diabetes mellitus with hyperglycemia [facility] Work Phone: Evaluation note Note Date & Type Note Facility Evaluation note No assessment information availa ble [facility] Work Phone: Evaluation note Note Date & Type Note Facility Evaluation note Diagnosis Onset Date BMI 45.0-49.9, adult acute Dietary counseling and surveillance acute Hyperlipidemia acute Hypertension acute Type 2 diabetes mellitus with hyperglycemia acute [facility] Work Phone: Evaluation note Note Date & Type Note Facility Evaluation note Diagnosis Type 2 diabetes mellitus with diabetic polyneuropathy, without long-term current use of insulin ([facility]) Paresthesia Disturbance of skin sensation documented in this encounter [facility] Evaluation note Note Date & Type [...] polyneuropathy, without long-term current use of insulin ([facility]) Encounter for medication monitoring Encounter for therapeutic drug monitoring documented in this encounter [facility] Hospital Discharge instructions Note Date & Type Note Facility Hospital Discharge instructions Ambulatory OrdersReferral to Diabetes Education Location: None SelectedReferral to Senior Sales Director Location: None Selected [facility] Work Phone: Summary Purpose Family History No [...] pital DATE CREATED AUTHOR AUTHOR'S ORGANIZ ATION 01/31/2024 [facility] DATE CREATED AUTHOR AUTHOR'S ORGANIZ ATION 02/25/2024 [facility] EPIC Care Teams (unrecognized sec [...] Team Status: Inactive Member Role Status Dates Baldo You DO Attending Provider Active Daniela Kline [...] October 13, 2023 End: October 13, 2023 Senior Office Support Assistant Sosa Relationship Specialty Start Date End Date Baldo You DO [address] [place] [id number] Referring Physician Neurology 02/18/24 Senior Office Support Assistant Sosa Relationship Specialty Start Date End Date Baldo You DO [address] [place] [id number] Referring Physician Neurology 02/18/24 Goals (unrecognized section [...] BE BASED ON THE PRIMARY CLINICAL RECORDS. [employer]. provides no warranty or guarantee of the accuracy or completeness of information in this document.
--- NOTE | 2024-03-07 12:46 | P.CN_ITS ---
Consult Note: HPI Data of Consult Patient: new to practice Consult date: 03/07/24 Requesting Physician: Radha Benítez MD Primary Care Provider: Non-Staff Physician, Consult Narrative Reason for consult: low back, bilateral lower extremity pain Narrative: 63yom who presents for evaluation. longstanding low back, bilateral leg pain >1 year. lumbar mri reviewed, which shows multilevel facet arthropathy and severe stenosis at l4-5. has completed >6 weeks of provider directed home exercise program, without much benefit. uses otc pain meds as needed. denies adverse med side effects. cc:: CC: Radha Benítez MD Review of Systems ROS Status of ROS 10 or more systems reviewed and unremark able except as noted in history and below PFSH PFSH Social History Smoking status: Former smoker Little interest or pleasure in doing things: not at all Feeling down, depressed, or hopeless: not at all Meds Home Medications and Allergies Home Medications ?Medication ?Instructions ?Recorded ?Confirmed ?Type cephalexin 500 mg capsule 500 mg PO TID 7 days #21 caps 09/03/22 Rx allopurinol 100 mg tablet 100 mg PO Q12H 09/12/22 09/12/22 History dicyclomine 20 mg tablet 20 mg PO TID PRN abdominal pain #7 09/12/22 Rx tabs dulaglutide 0.75 mg/0.5 mL 0.75 mg subcut .weekly 09/12/22 09/12/22 History subcutaneous pen injector (Trulicity) gabapentin 600 mg tablet 600 mg PO TID 09/12/22 09/12/22 History lisinopril 10 mg tablet 10 mg PO DAILY 09/12/22 09/12/22 History meloxicam 15 mg tablet 15 mg PO DAILY 09/12/22 09/12/22 History metformin 1,000 mg tablet 1,000 mg PO BID 09/12/22 09/12/22 History ondansetron 4 mg disintegrating 4 mg PO Q4H PRN nausea and 09/12/22 Rx tablet vomiting 3 days #6 tabs oxybutynin chloride 15 mg 15 mg PO DAILY 09/12/22 09/12/22 History tablet,extended release 24 hr diclofenac sodium 50 mg 50 mg PO Q12H PRN pain #14 tabs 02/10/24 Rx tablet,delayed release orphenadrine citrate 100 mg 100 mg PO BID PRN muscle spasm #14 02/10/24 Rx tablet,extended release tabs Allergies Allergy/AdvReac Type Severity Reaction Status Date / Time No Known Drug Allergies Allergy Verified 02/19/24 12:54 Exam Narrative Exam Narrative: Psych-alert and oriented x 3. Attentive and appropriate, constitutionally normal, displays normal mood and affect per situation. There are no obvious deficits in memory, reasoning, or intellect.? Skin-no obvious rashes, bruising, erythema noted to the patient's area of pain.? Extremities- extremities are warm with minimal edema and palpable pulses. Lumbar-tenderness to palpation noted in the lumbar spine and paraspinal musculature. Pain is elicited with flexion, extension, and lateral rotation of the lumbar spine. Range of motion is diminished with these motions. Facet loading maneuvers are positive. Strength-noted to be unremarkable with the exception of decreased strength rated at 4 out of 5 in bilateral quadriceps femoris, anterior tibialis. Sensory-no notable sensory deficits in the bilateral lower extremities to touch or pinprick in all dermatomal distributions with the exception to decreased sensation to the bilateral L4, 5 dermatomal distribution Sacroiliac - pain to palpation over bilateral psis. positive giselle's bilaterally. positive thigh thrust bilaterally. Coordination remains intact.? Gait remains non-antalgic. Assessment and Plan Assessment and Plan (1) Lumbar stenosis with neurogenic claudication: (2) Sacroiliac joint dysfunction of both sides: (3) Lumbar spondylosis: Plan 63yom who presents for evaluation. failed conservative measures, as noted. imaging reviewed, as noted. given symptoms and imaging, may benefit from bilateral l4-5 tfesi under fluoroscopic guidance. may even benefit from bilateral sij injection. he is in agreement. meds reviewed, uds obtained. will trial norco 5mg bid prn. follow up after procedure.
== END 2024-03-07 11:51 | disposition home or self-care (01) ==
PROVIDERS: Visit Provider Anesthesiology
DX: M48.062 Spinal stenosis, lumbar region with neurogenic claudication (principal); M53.3 Sacrococcygeal disorders, not elsewhere classified; M47.816 Spondylosis without myelopathy or radiculopathy, lumbar region
CPT/HCPCS: G0463

== ENCOUNTER 2024-03-14 08:58 | Day surgery (SDC) | payer MEDICARE, SELFPAY ==
[2024-03-14 09:34] VITALS: BP 204/111; PULSE 82; TEMP 36.3; O2SAT 95
[2024-03-14 09:40] LABS: Glucometer 219 mg/dL (74-106)
[2024-03-14 10:03] VITALS: BP 164/100; PULSE 74; O2SAT 91
[2024-03-14 10:05] VITALS: BP 167/102; PULSE 71; O2SAT 95
--- NOTE | 2024-03-14 10:06 | W.PM.PROCNOT ---
Date of procedure: 03/14/24 Pre-op diagnosis: Pain due to lumbar stenosis with neurogenic claudication Post-op diagnosis: same as pre-op Procedure: Procedure: Bilateral L4-5 transforaminal epidural steroid injection Medications: Bupivacaine 0.25% 2cc, lidocaine 2% 1cc, depomedrol 80mg The patient was seen and examined in the preoperative holding area.? Informed consent was obtained and placed on the chart.? Patient was brought to the medical procedure unit and placed in the prone position where a timeout was completed verifying the correct patient, procedure site, position, and planned special equipment using sterile aseptic technique.? Under direct fluoroscopic visualization a 25-gauge Quincke tipped spinal needle was advanced at level left L4-5 to the designated neural foramen where contrast dye was injected to show adequate spread.? There was no evidence of vascular or adverse uptake.? Epidural spread was appreciated.? The above-mentioned injectate was then placed in a 1.5 mL aliquot preceded by negative aspiration.? The needle was removed. The same procedure, at the same level, was completed on the opposite side. ? Patient was taken to the postprocedural recovery area and monitored for an appropriate length of time before found suitable for discharge in the accompaniment of a responsible adult. Anesthesia: Local Surgeon: Radha Benítez Pathology: none sent Condition: stable Disposition: no change
[2024-03-14] MEDS: 0.9 % SODIUM CHLORIDE 10 ML SYRINGE - SALINE FLUSH INJ (10:07)
[2024-03-14] MEDS: BUPIVACAINE HCL 0.25% PF 25 MG/10 ML VIAL INJ (10:07)
[2024-03-14] MEDS: IOHEXOL 240 MG/ML - 10 ML VIAL 24 MG INJ (10:07)
[2024-03-14] MEDS: LIDOCAINE HCL 2% 400 MG/20 ML MDV INJ (10:07)
[2024-03-14] MEDS: METHYLPREDNISOLONE ACETATE 80 MG/ML VIAL INJ (10:08)
== END 2024-03-14 10:11 | disposition home or self-care (01) ==
PROVIDERS: Visit Provider Anesthesiology
DX: M48.062 Spinal stenosis, lumbar region with neurogenic claudication (principal); E11.9 Type 2 diabetes mellitus without complications; Z79.85 Long-term (current) use of injectable non-insulin antidiabetic drugs
CPT/HCPCS: 36415; 64483; 82948; J0665; J1010; Q9966

== ENCOUNTER 2024-03-22 07:37 | Outpatient (OUT) | payer MEDICARE, SELFPAY ==
--- OUTSIDE RECORDS SUMMARY | 2024-03-22 07:49 | XMS_ITS | CCD ---
Demographics Address [address] [address] Preferred Language en Marital Status Single Baptist Affiliation Unknown Race White Ethnic Group Not or Lati no Author Organization [facility] [employer] Care Team Providers Care Engineering Model Maker Name Role Phone MARY ., DR NIYAH Barton Admitting Unavailable MARY ., DR NIYAH Barton Attending Unavailable DANIELA KLINE Primary Care Unavailable DANIELA KLINE Admitting Unavailable DANIELA KLINE Attending Unavailable DANIELA KLINE Primary Care Unavailable Hua Huerta Consulting Unavailable DANIELA KLINE Consulting Unavailable DO Baldo You Attending Provider EBENEZER Kline Primary Care Provider Unavailable Primary Care Provider UnavailSekou Mcclure Admitting Unavailable Sekou Terrazas Attending Unavailable NO FAMILY, PHYSICIAN Primary Care Unavailable Baldo You DO Unavailable SEKOU TERRAZAS Attending Unavailable SEKOU TERRAZAS Attending Unavailable BALDO YOU Attending Unavailable SEKOU TERRAZAS Attending Unavailable Jeyson OLIVEROS, Radha Laird Attending Unavailable Jeyson OLIVEROS, Radha Laird Attending Unavailable Medications Current Medications Medication Drug Class(es) Dates Sig (Normalized) Sig (Original) [id number] actuat albuterol 0.09 mg/actuat metered dose [...] bedtime. Active Blood-Glucose Meter,Continuous (Freestyle Jeromy 3 [place]) misc (2 sources) Start: 10-12-2023 Blood-Glucose Meter,Continuous (Freestyle Jeromy 3 [place]) [facility] Active 0 .ROUTE .MEDSUPPLY 1 October 12, [...] puff(s) by inhalation every eight hours Ipratropium [place] (Atrovent Hfa) 17 mcg/actuation HFA aerosol inhaler [...] injector Discontinued 0.5 MG SUBCUT every week 9 July 09, 2023 12:00am October 12, 2023 [...] Translations: [Pain in joint, shoulder region] Onset: 04-24-2024 04-24-2024 Episodic Results Test Name Value Interpretation Reference Range Facility XR pre/post mri xrayon 01-24 XR pre/post mri xray [facility] Main [place] [address] [place] [address] MRI Report Signed Patient: Tristin Jernigan MR#: [id number] : 1960 Acct:[id number] Age/Sex: 63 / M ADM Date: 01/25/24 [facility] Room: Type: [facility] CLI Attending Dr: Sekou GREEN Copies to: NORMA Villagomez Ordering Provider: NORMA Villagomez Date of Service: 01/25/24 MR/MR lumbar spine wo con: [id number] ([id number]) XR/XR pre/post mri xray: LUMBAR MRI MR [...] Daniel Hobson M.D.01/25/2024 3:38 PM Dictation Location: [place] [address] Transcribed By: [facility] 01/25/24 1538 Dictated By: Jose Daniel Hobson II, MD 01/25/24 1528 Signed By: 01/25/24 1538 Normal [facility] EMG 2 Extremitieson 01-21-20 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 [facility] EMG 2 ExtremitiesOrdered By: Baldo You on 01-21-2024 [facility] Work Phone: [facility] 9-10 Nerveson 01-21-2024 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 [facility] US SINGLE QUAD RT UPPERon US SINGLE [...] Date: 2022-05-27 15:43 Normal [facility] Vital Signs Date Time Vital Sign Value Performing Clinician Facility 02-18-2024 10:56-0500 Body height 172.7 cm Sekou Terrazas [employer] Work Phone: [facility] 02-18-2024 10:56-0500 Body mass index (BMI) [Ratio] 39.84 kg/m2 Sekou Terrazas [employer] Work Phone: [facility] 02-18-2024 10:56-0500 Body weight 118.84 kg Sekou Terrazas [employer] Work Phone: [facility] 02-18-2024 10:56-0500 Diastolic blood pressure 80 mm[Hg] Sekou Terrazas [employer] Work Phone: [facility] 02-18-2024 10:56-0500 Heart rate 96 /min Sekou Terrazas [employer] Work Phone: [facility] 02-18-2024 10:56-0500 SaO2% (BldA) [Mass fraction] 97 % Sekou Terrazas [employer] Work Phone: [facility] 02-18-2024 10:56-0500 Systolic blood pressure 142 mm[Hg] Sekou Terrazas [employer] Work Phone: [facility] 10-12-2023 10:22-0400 Diastolic blood pressure 86 mm[Hg] [facility] 10-12-2023 10:22-0400 Systolic blood pressure 135 mm[Hg] [facility] 10-12-2023 10:20-0400 Body height 162.56 cm [facility] 10-12-2023 10:20-0400 Body mass index (BMI) [Ratio] 46.2 kg/m2 [facility] 10-12-2023 10:20-0400 Body weight 122.21 kg [facility] 10-12-2023 10:20-0400 Heart rate 90 /min [facility] 10-12-2023 10:20-0400 Respiratory rate 18 /min [facility] 10-12-2023 10:20-0400 SaO2% (BldA) [Mass fraction] 94 % [facility] 07-09-2023 15:12-0400 Body height 162.56 cm [facility] 07-09-2023 15:12-0400 Body mass index (BMI) [Ratio] 48.9 kg/m2 [facility] 07-09-2023 15:12-0400 Body weight 129.27 kg [facility] 07-09-2023 15:12-0400 Diastolic blood pressure 100 mm[Hg] [facility] 07-09-2023 15:12-0400 Heart rate 87 /min [facility] 07-09-2023 15:12-0400 Respiratory rate 18 /min [facility] 07-09-2023 15:12-0400 SaO2% (BldA) [Mass fraction] 95 % [facility] 07-09-2023 15:12-0400 Systolic blood pressure 174 mm[Hg] [facility] Encounters Encounter Date Encounter Type Care Provider Facility Start: 03-14-2024 End: 03-14-2024 ambulatory Radha Benítez MD Facility:[facility] Start: 03-07-2024 End: 03-07-2024 ambulatory Radha Benítez MD Facility:[facility] Start: 02-18-2024 End: 02-18-2024 Bamboo flowsheet Sekou Terrazas [employer] Work Phone: [facility] Start: 02-18-2024 End: 02-18-2024 Bamboo flowsheet Sekou Terrazas [employer] Work Phone: [facility] Start: 02-18-2024 End: 02-18-2024 Office outpatient visit 25 minutes Sekou Terrazas [employer] [facility] Comment on above: Lumbosacral radiculo syed (Primary Dx); Degeneration of intervertebral disc of lumbar region with discogenic back pain and lower extremity pain; DDD (degenerative disc disease), cervical; Chronic right shoulder pain; Polyneuropathy; Type 2 diabetes mellitus with diabetic polyneuropathy, without long-term current use of insulin ([facility]); Encounter for medication monitoring Start: 02-18-2024 End: 02-18-2024 ambulatory SEKOU TERRAZAS Not Available Start: 01-25-2024 End: 01-25-2024 ambulatory Sekou Terrazas Facility:[facility] Start: 01-21-2024 End: 01-21-2024 Bamboo flowsheet Baldo You DO Work Phone: [facility] Start: 01-21-2024 End: 01-21-2024 Bamboo flowsheet Baldo You DO Work Phone: [facility] Start: 01-21-2024 End: 01-21-2024 ambulatory BALDO YOU Not Available Start: 01-21-2024 End: 01-21-2024 Patient encounter procedure Baldo You DO [facility] Comment on above: Type 2 diabetes ashtyn itus with diabetic polyneuropathy, without long-term current use of insulin (CMS/HCC); Paresthesia Start: 10-13-2023 End: 10-13-2023 ambulatory [facility] Work Phone: Start: 10-13-2023 End: 10-13-2023 Patient encounter procedure [facility] Work Phone: Start: 10-12-2023 End: 10-12-2023 ambulatory [facility] Work Phone: Start: 10-12-2023 End: 10-12-2023 Patient encounter procedure [facility] Work Phone: Start: 08-10-2023 End: 08-10-2023 ambulatory SEKOU NINI Not Available Start: 07-09-2023 End: 07-09-2023 ambulatory [facility] Work Phone: Start: 07-09-2023 End: 07-09-2023 Patient encounter procedure [facility] Work Phone: Start: 06-10-2023 End: 06-10-2023 ambulatory SEKOU NINI Not Available Start: 06-02-2023 Non-patient / Non-visit [facility] Work Phone: Start: 09-24-2022 End: 09-24-2022 ambulatory PA-C Daniela Kline Work Phone: [facility] Work Phone: Start: 09-24-2022 End: 09-24-2022 Discharged Recurring EBENEZER Kline Work Phone: [facility] [address] Start: 05-27-2022 End: 05-28-2022 ambulatory DANIELA KLINE Facility:[facility] Start: 10-29-[address] NIYAH HERNANDEZ . Faci lity:[facility]1 Procedures Date Procedure Procedure Detail Performing Clinician Start: 01-21-2024 End: 01-21-2024 Needle emg ea extremty w/paraspinl area complete Sekou Terrazas [employer] Work Phone: Plan of Treatment Date Care Activity Detail Author Start: 03-22-2024 End: 03-22-2024 Patient encounter procedure 03/22/2024 2:20 PM EST Office Visit [facility] [address] [place] [phone] Nini Sekou, [employer]ALLOW MAKER [address] [place] [phone] [facility] Start: 02-18-2024 End: 02-17-2025 Cobalamin (Vitamin B12) [Mass/volume] in Serum or Plasma Vitamin B12 Lab Routine Polyneuropathy Encounter for medication monitoring Expected: 02/18/2024 (Approximate), Expires: 02/17/2025 [facility] Comment on above: Expected: 02/18/2024 (Approximate), Expi res: 02/17/2025 Start: 02-18-2024 End: 02-17-2025 IMMUNOFIXATION,SERUM ([facility] IMMUNOFIXATION,SERUM ([facility]) Lab Routine Polyneuropathy Expected: 02/18/2024 (Approximate), Expires: 02/17/2025 [facility] Comment on above: Expected: 02/18/2024 (Approximate), Expi res: 02/17/2025 Start: 02-18-2024 End: 02-17-2025 Methylmalonate [Moles/volume] in Serum or Plasma Methylmalonic acid, serum Lab Routine Polyneuropathy Encounter for medication monitoring Expected: 02/18/2024 (Approximate), Expires: 02/17/2025 [facility] Comment on above: Expected: 02/18/2024 (Approximate), Expi res: 02/17/2025 Start: 02-18-2024 End: 02-17-2025 Nuclear Ab [Titer] in Serum by Immunofluorescence JOSÉ ANTONIO Lab Routine Polyneuropathy Expected: 02/18/2024 (Approximate), Expires: 02/17/2025 [facility] Comment on above: Expected: 02/18/2024 (Approximate), Expi res: 02/17/2025 Start: 02-18-2024 End: 02-17-2025 Protein electrophoresis, serum Protein electrophoresis, serum Lab Routine Polyneuropathy Expected: 02/18/2024 (Approximate), Expires: 02/17/2025 [facility] Comment on above: Expected: 02/18/2024 (Approximate), Expi res: 02/17/2025 Start: 02-18-2024 End: 02-17-2025 Thyrotropin [Units/volume] in Serum or Plasma TSH Lab Routine Polyneuropathy Encounter for medication monitoring Expected: 02/18/2024 (Approximate), Expires: 02/17/2025 [facility] Work Phone: Comment on above: Expected: 02/18/2024 (Approximate), Expi res: 02/17/2025 Start: 02-18-2024 End: 02-18-2024 Patient encounter procedure [facility] [address] Comment on above: Arrived Start: 11-22-2023 Pneumococcal Vaccine: 65+ Years (1 of 1 - PCV) Pneumococcal Vaccine: 65+ Years (1 of 1 - PCV) [facility] Start: 10-18-2023 Influenza vaccination Influenza Vaccine (#1) [facility] Start: 07-09-2023 Patient referral [facility] Work Phone: Start: 1960 Screening for malignant neoplasm of colon [facility] Comprehensive metabo lic 2000 panel - Serum or Plasma [facility] Patient Education Diabetes and diet [facility] Work Phone: Patient referral [facility] Work Phone: [facility] Immunizations Immunization Date Immunization Notes Care Provider Bradley holley 12-12-2020 influenza virus vaccine, unspecified formulation Baldo You DO Work Phone: [facility] Payers Date Payer Category Payer Medicare (Managed Care) [employer] [id number] 2024 Medicare [id number] 2024 Unknown 2024 Self-pay 2023 Medicaid [employer] MEDICARE A DVANTAGE [id number] 2023 Private Health Insurance [id number] 2022 Medicaid [id number] 1959 Unknown [id number] 1960 Unknown [id number] 1960 Unknown [id number] 593 1960 Unknown [id number]. 1259 1960 Unknown [id number] 1259 1960 Unknown [id number]. 1259 1960 Unknown [id number]. 1259 1960 Unknown [id number] 196 1960 Unknown [id number] 196 Private Health Insurance [facility] [id number] Unknown [id number] 531 Social History Date Type Detail Facility Tobacco smoking stat [facility] Unknown if ever smoked [facility] Work Phone: Start: 1960 Sex Assigned At Male [facility] Start: 06-10-2023 Tobacco smoking stat [facility] Ex-smoker [facility] History of tobacco use Current smoker [facility] Start: 06-10-2023 Tobacco use and exposure User of smokeless tobacco [facility] History of tobacco use Chews Tobacco [facility] Start: 08-10-2023 End: 02-18-2024 Alcoholic beverage intake Ex-drinker (finding) [facility] Start: 08-10-2023 End: 02-18-2024 History of Social function [facility] Start: 08-10-2023 End: 02-18-2024 Tobacco use panel [facility] Start: 06-10-2023 Tobacco Comment Quit smoking in 1976 [facility] Start: 06-10-2023 Alcohol Comment No caffeine intake N [facility] Start: 1960 Sex assigned at Not on file N [facility] Start: 02-18-2024 Alcohol Comment No alcohol use since 03/19/2019. No caffeine intake [facility] History of Present illness Narrative 02-18-2024 Sekou [...] He states his sciatica pain increased on Thomas Rosaline. He continues to have painful paresthesias [...] nervous/anxious. Past Medical History: Diagnosis Date Asthma ([facility]) Cervical radiculopathy COPD (chronic obstructive pulmonary disease) ([facility]) Diabetes mellitus (CMS/HCC) Gout Hypertension ([facility]) Lumbosacral radiculopathy Memory changes Past Surgical [...] wrist extensors , wrist flexor , and shearing machine tender strength 5/5. Limited range of motion in the right shoulder. LUE strength deltoid , biceps , triceps , wrist extensors , wrist flexor , and shearing machine tender strength 5/5. RLE strength iliopsoas, quadriceps, tibialis [...] reflex 0. LLE knee reflex 0. Coordination: [id number]-il-[id number] testing normal. Rapid alternating movements are normal. Gait: Appears antalgic. Utilizing cane. Review and summary of old records: MRI of the lumbar spine without contrast at [facility] on 01/25/2024: Significant multilevel degenerative changes [...] the spinal canal with moderate right and qyjjwwxz-ja-ossiib left neural foraminal narrowing. At L5-S1, there [...] EMG of the bilateral lower extremities at [facility] on 01/21/2024: Bilateral [...] polyneuropathy, without long-term current use of insulin ([facility]) The patient has polyneuropathy as identified [...] of neuropathy - Follow up closely with clerical support specialist and primary care provider to help [...] causes of polyneuropathy documented in this encounter [facility] History of Present illness Narrative 01-21-2024 KIAH Melendez - 01/21/2024 11:00 AM EST Note Date & Type Note Facility 01-21-2024 History of Presen t illness Narrative Images from the original note were not included. Reason for Appointment: EMG Patient: Tristin Rodriguez Delon : 1960 EMG Computer: Natus 1 Referring Physician: Sekou Terrazas CNP EMG: [facility] tripe cooker: Alfonso Martins RT(R) Office Location: Tram Reason for EMG: c/o numbness/tingling & cramping [...] Hypertension Type 2 diabetes mellitus with hyperglycemia [facility] Work Phone: Chief complaint+Reason for visit Narrative Note Date & Type Note Facility Chief complaint+Reason for visit Narrative Reason for Visit BMI 45.0-49.9, adult Dietary counseling and surveillance Hyperlipidemia Hypertension Type 2 diabetes mellitus with hyperglycemia [facility] Work Phone: Evaluation note Note Date & Type Note Facility Evaluation note No assessment information availa [facility] Work Phone: Evaluation note Note Date & Type Note Facility Evaluation note Diagnosis Onset Date BMI 45.0-49.9, adult acute Dietary counseling and surveillance acute Hyperlipidemia acute Hypertension acute Type 2 diabetes mellitus with hyperglycemia acute [facility] Work Phone: Evaluation note Note Date & Type Note Facility Evaluation note Diagnosis Type 2 diabetes mellitus with diabetic polyneuropathy, without long-term current use of insulin ([facility]) Paresthesia Disturbance of skin sensation documented in this encounter [facility] Evaluation note Note Date & Type [...] polyneuropathy, without long-term current use of insulin ([facility]) Encounter for medication monitoring Encounter for therapeutic drug monitoring documented in this encounter [facility] Hospital Discharge instructions Note Date & Type Note Facility Hospital Discharge instructions Ambulatory OrdersReferral to Diabetes Education Location: None SelectedReferral to Rn Employee Health Location: None Selected [facility] Work Phone: Summary Purpose Family History No [...] Records FoundNo Status Records FoundNo Status Records FoundNo Status Records Found INFORMATION SOURCE (unrecogn ized section and content) DATE CREATED AUTHOR 06/01/2022 [facility] DATE CREATED AUTHOR AUTHOR'S ORGANIZ ATION 01/31/2024 [facility] DATE CREATED AUTHOR AUTHOR'S ORGANIZ ATION 02/25/2024 [facility] EPIC DATE CREATED AUTHOR AUTHOR'S ORGANIZ ATION 03/20/2024 [facility] Care Teams (unrecognized sec tion and [...] October 13, 2023 End: October 13, 2023 Engineering Model Maker Relationship Specialty Start Date End Date Baldo You DO [address] [place], [place] [id number] Referring Physician Neurology 02/18/24 Engineering Model Maker Relationship Specialty Start Date End Date Baldo You DO [address] [place] [id number] Referring Physician Neurology 02/18/24 Goals (unrecognized section [...] BE BASED ON THE PRIMARY CLINICAL RECORDS. [employer] [facility]. provides no warranty or guarantee of the accuracy or completeness of information in this document.
[2024-03-22 08:49] LABS: Thyroid Stimulating Hormone 2.891 uIU/mL (0.358-3.740)
[2024-03-23 04:07] LABS: Vitamin B12 659 pg/mL (232-1245)
[2024-03-23 18:11] LABS: Antinuclear Antibodies, IFA Positive (.); Nuclear Dot Pattern >1:1280 (.); Speckled Pattern >1:1280 (.)
[2024-03-24 12:09] LABS: Albumin 3.7 g/dL (2.9-4.4); Alpha-1-Globulin 0.2 g/dL (0.0-0.4); Alpha-2-Globulin 0.8 g/dL (0.4-1.0); Gamma Globulin 1.2 g/dL (0.4-1.8); Immunoglobulin A, Qn, Serum 362 mg/dL (61-437); Immunoglobulin G, Qn, Serum 1223 mg/dL (603-1613); Immunoglobulin M, Qn, Serum 146 mg/dL (20-172); Protein, Total 7.2 g/dL (6.0-8.5)
[2024-03-27 21:09] LABS: Methylmalonic Acid, Serum 165 nmol/L (0-378)
== END 2024-03-22 07:38 | disposition home or self-care (01) ==
LOC: LAB 07:44
PROVIDERS: Visit Provider Nurse Practitioner Family
DX: G62.9 Polyneuropathy, unspecified (principal); Z51.81 Encounter for therapeutic drug level monitoring
CPT/HCPCS: 36415; 82607; 82784; 83921; 84155; 84165; 84443; 86038; 86334

== ENCOUNTER 2024-03-23 10:10 | Outpatient (OUT) | payer MEDICARE, SELFPAY ==
--- OUTSIDE RECORDS SUMMARY | 2024-03-23 10:21 | XMS_ITS | CCD ---
Demographics Address [address] [place] [address] Home Phone Mobile Phone Preferred Language en Marital Status Unknown Druze Affiliation Unknown Race White Ethnic Group Not or Lati no Author Organization [facility] Care Team Providers Care Preschool Teacher Name Role Phone DR NIYAH GONZALEZ Admitting Unavailable DR NIYAH GONZALEZ Attending Unavailable DANIELA KLINE Primary Care Unavailable [...] YOU Attending Unavailable SEKOU TERRAZAS Attending Unavailable Radha Benítez MD Attending Unavailable Radha Benítez MD Attending Unavailable Medications Current Medications Medication Drug Class(es) Dates Sig (Normalized) Sig (Original) acetaminophen 325 mg / HYDROcodone bitartrate 5 mg oral tablet (2 sources) Opioid Agonist Start: 03-07-2024 take 1 tablet by mouth twice daily as needed HYDROcodone-acetam inophen (Yancey) 5-325 MG tablet Take 1 tablet by mouth 2 (two) times a day as needed 03/07/2024 Active [id number] 200 actuat albuterol 0.09 mg/actuat metered dose inhaler (8 sources) beta2-Adrenergic Agonist Start: 01-02-2023 take 1 puff(s) by inhalation every six hours albuterol HFA 90 mcg/act inhaler Inhale 1 puff every 6 (six) hours if needed 01/02/2023 Active allopurinol 100 mg oral tablet (8 sources) Xanthine Oxidase Inhibitor take 1 tablet by mouth in the morning allopurinol (Zyloprim) 100 MG tablet Take 100 mg by mouth in the morning and 100 mg before bedtime. Active Blood-Glucose Meter,Continuous (Freestyle Jeromy 3 [place]) misc (2 sources) Start: 10-12-2023 Blood-Glucose Meter,Continuous (Freestyle Jeromy 3 [place]) misc Active 0 .ROUTE .MEDSUPPLY 1 October 12, 2023 12:00am As directed Blood-Glucose Sensor (Freestyle Jeromy 3 Sensor) device (2 sources) Start: 10-12-2023 Blood-Glucose Sensor (Freestyle Jeromy 3 Sensor) device Active 0 .ROUTE .MEDSUPPLY October 12, 2023 12:00am change every 14 days diazePAM 5 mg oral tablet (8 sources) Benzodiazepine Start: 11-11-2022 take 1 tablet by mouth every eight hours as needed diazePAM (Valium) 5 MG tablet Take 5 mg by mouth every 8 (eight) hours if needed 11/11/2022 Active dicyclomine hydrochloride 20 mg oral tablet (8 sources) Anticholinergic Start: 09-12-2022 take 1 tablet by mouth four times daily as needed dicyclomine (Bentyl) 20 MG tablet Take 20 mg by mouth 4 (four) times a day as needed 09/12/2022 Active doxycycline monohydrate 100 mg oral tablet (8 sources) Tetracycline-class Drug Start: 08-22-2022 take 1 tablet by mouth in the morning doxycycline (Adoxa) 100 MG tablet Take 100 mg by mouth in the morning and 100 mg before bedtime. 08/22/2022 Active dulaglutide (Trulicity) 3 MG/0.5ML solution pen-injector (8 sources) inject 3 mg by subcutaneous injection every week dulaglutide (Trulicity) 3 MG/0.5ML solution pen-injector Inject 3 mg under the skin 1 (one) time per week Active empagliflozin 25 mg oral tablet (11 sources) Sodium-Glucose Cotransporter 2 Inhibitor Start: 07-09-2023 take 25 mg by mouth once daily empagliflozin (Jardiance) 25 MG Take 25 mg by mouth Daily 07/09/2023 Active furosemide 40 mg oral tablet (8 sources) Loop Diuretic take 1 tablet by mouth in the morning furosemide (Lasix) 40 MG tablet Take 40 mg by mouth in the morning and 40 mg before bedtime. Active gabapentin 600 mg oral tablet (11 sources) Anti-epileptic Agent Start: 07-09-2023 take 600 mg by mouth three times daily Gabapentin Active 600 MG PO Three times daily July 09, 2023 12:00am 200 actuat ipratropium bromide 0.017 mg/actuat metered dose inhaler (11 sources) Anticholinergic Start: 07-09-2023 take 1 puff(s) by inhalation every eight hours Ipratropium Stollings (Atrovent Hfa) 17 mcg/actuation HFA aerosol inhaler Active 2 PUFF INHALATION Every 8 hours July 09, 2023 12:00am ipratropium (Atr ovent) 17 MCG/ACT inhaler Inhale 2 puffs Active lisinopril 40 mg oral tablet (11 sources) Angiotensin Converting Enzyme Inhibitor Start: 07-09-2023 take 40 mg by mouth once daily Lisinopril Active 40 MG PO Daily July 09, 2023 12:00am take 1 tablet by mouth once andrew y lisinopril 10 MG tablet Take 10 mg by mouth Daily Active meloxicam 15 mg oral tablet (11 sources) Nonsteroidal Anti-inflammatory Drug Start: 07-09-2023 take 15 mg by mouth once daily Meloxicam Active 15 MG PO Daily July 09, 2023 12:00am metFORMIN hydrochloride 1000 mg oral tablet (8 sources) Biguanide take 1 tablet by mouth in the morning metFORMIN (Glucophage) 1000 MG tablet Take 1,000 mg by mouth in the morning and 1,000 mg in the evening. Take with meals. Active ondansetron 4 mg disintegrating oral tablet (8 sources) Serotonin-3 Receptor Antagonist Start: 09-12-2022 take 1 tablet by mouth every eight hours as needed ondansetron ODT (Zofran-ODT) 4 MG disintegrating tablet Take 4 mg by mouth every 8 (eight) hours if needed 09/12/2022 Active 24 hr oxybutynin chloride 15 mg extended release oral tablet (11 sources) Cholinergic Muscarinic Antagonist Start: 07-09-2023 take 15 mg by mouth once daily Oxybutynin Chloride Active 15 MG PO Daily July 09, 2023 12:00am potassium chloride 10 meq extended release oral tablet (8 sources) take 1 tablet by mouth in [...] Semaglutide,0.25 or 0.5MG/DOS, 2 MG/3ML solution pen-injector (8 sources) Start: 07-09-2023 inject 0.5 mg by [...] before activity SITagliptin 100 mg oral tablet (11 sources) Dipeptidyl Peptidase 4 Inhibitor Start: 03-24-2023 [...] 09, 2023 12:00am July 09, 2023 4:44pm DULoxetine 30 mg delayed release oral capsule (5 sources) Serotonin and Norepinephrine Reuptake Inhibitor Start: 02-18-2024 End: 04-18-2024 take 1 capsule by mouth once daily DULoxetine (Cymbalta) [address] capsule Indications: Degeneration of intervertebral disc of lumbar region with discogenic back pain and lower extremity pain , Polyneuropathy TAKE 1 CAPSULE BY MOUTH EVERY DAY *DO NOT CRUSH OR CHEW* 90 capsule 1 03/14/2024 03/22/2024 Discontinued (Ineffective) FLUoxetine 40 mg oral capsule (5 sources) [...] 2023 12:00am tiZANidine 4 mg oral capsule (11 sources) Central alpha-2 Adrenergic Agonist Start: 07-09-2023 [...] Onset: 06-01-2022 Episodic Diabetes mellitus with complications (19 sources) Hyperglycemia due to type 2 diabetes [...] Onset: 05-27-2022 Episodic Other nervous system disorders (4 sources) Polyneuropathy; Translations: [Polyneuropathy, unspecified] 02-18-2024 Chronic Other non-traumatic joint disorders (4 sources) Chronic pain of right upper limb; [...] Spondylosis; intervertebral disc disorders; other back problems (20 sources) Degeneration of cervical intervertebral disc; Translations: [Other cervical disc degeneration, unspecified cervical region] Onset: 06-10-2023 06-10-2023 Chronic Spondylosis; intervertebral disc disorders; other back problems (20 sources) Cervical radiculopathy; Translations: [Radiculopathy, cervical region] Onset: 06-10-2023 06-10-2023 Episodic Past or Other Problems Problem Classification Problem Date Documented Da te Episodic/Chronic Other nervous system disorders (9 sources) Paresthesia; Translations: [Paresthesia of skin] Onset: 06-10-2023 06-10-2023 Episodic Other non-traumatic joint disorders (8 sources) Pain in right shoulder; Translations: [Pain in joint, shoulder region] Onset: 06-10-2023 06-10-2023 Episodic Results Test Name Value Interpretation Reference Range Facility ALL THYROID STIM HORMONEon 0 03-22-2024 TSH Qn 2.891 m[IU]/L [facility] XR pre/post mri xrayon 01-24 XR pre/post mri xray [facility] Main [place] [address] [place] [address] MRI Report Signed Patient: Tristin Jernigan MR#: [id number] : 1960 Acct:[id number] Age/Sex: 63 / M ADM Date: 01/25/24 Loc: [facility] Room: Type: [facility] Attending Dr: Sekou GREEN Copies to: NORMA Villagomez Ordering Provider: NORMA Villagomez Date of Service: 01/25/24 MR/MR lumbar spine wo con: M54.17 ([id number]) XR/XR pre/post mri xray: LUMBAR MRI MR [...] Daniel Hobson M.D.01/25/2024 3:38 PM Dictation Location: [place] [address] Transcribed By: [facility] 01/25/24 1538 Dictated By: Jose Daniel Hobson II, MD 01/25/24 1528 Signed By: 01/25/24 1538 Normal [facility] EMG 2 Extremitieson 01-21-20 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 [facility] EMG 2 ExtremitiesOrdered By: Baldo You on 01-21-2024 [facility] Work Phone: [facility] 9-10 Nerveson 01-21-2024 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 [facility] US SINGLE QUAD RT UPPERon [...] by: HUA HUERTA Date: 2022-05-27 15:43 Normal [facility] Vital Signs Date Time Vital Sign Value Performing Clinician Facility 03-22-2024 14:27-0500 Body mass index (BMI) [Ratio] 39.84 kg/m2 Sekou Terrazas RF TECHNICIAN Work Phone: [facility] 03-22-2024 14:27-0500 Body weight 118.84 kg Sekou Terrazas RF TECHNICIAN Work Phone: [facility] 03-22-2024 14:27-0500 Diastolic blood pressure 80 mm[Hg] Sekou Terrazas RF TECHNICIAN Work Phone: [facility] 03-22-2024 14:27-0500 Heart rate 80 /min Sekou Terrazas RF TECHNICIAN Work Phone: [facility] 03-22-2024 14:27-0500 SaO2% (BldA) [Mass fraction] 95 % Sekou Terrazas RF TECHNICIAN Work Phone: [facility] 03-22-2024 14:27-0500 Systolic blood pressure 142 mm[Hg] Sekou Terrazas RF TECHNICIAN Work Phone: [facility] 02-18-2024 10:56-0500 Body height 172.7 cm Sekou Terrazas RF TECHNICIAN Work Phone: [facility] 02-18-2024 10:56-0500 Body mass index (BMI) [Ratio] 39.84 kg/m2 Sekou Terrazas RF TECHNICIAN Work Phone: [facility] 02-18-2024 10:56-0500 Body weight 118.84 kg Sekou Terrazas RF TECHNICIAN Work Phone: [facility] 02-18-2024 10:56-0500 Diastolic blood pressure 80 mm[Hg] Sekou Terrazas RF TECHNICIAN Work Phone: [facility] 02-18-2024 10:56-0500 Heart rate 96 /min Sekou Terrazas RF TECHNICIAN Work Phone: [facility] 02-18-2024 10:56-0500 SaO2% (BldA) [Mass fraction] 97 % Sekou Terrazas RF TECHNICIAN Work Phone: [facility] 02-18-2024 10:56-0500 Systolic blood pressure 142 mm[Hg] Sekou Terrazas RF TECHNICIAN Work Phone: [facility] 10-12-2023 10:22-0400 Diastolic blood pressure 86 mm[Hg] [facility] 10-12-2023 10:22-0400 Systolic blood pressure 135 mm[Hg] [facility] 10-12-2023 10:20-0400 Body height 162.56 cm [facility] 10-12-2023 10:20-0400 Body mass index (BMI) [Ratio] 46.2 kg/m2 [facility] 10-12-2023 10:20-0400 Body weight 122.21 kg [facility] 10-12-2023 10:20-0400 Heart rate 90 /min [facility] 10-12-2023 10:20-0400 Respiratory rate 18 /min [facility] 10-12-2023 10:20-0400 SaO2% (BldA) [Mass fraction] 94 % [facility] 07-09-2023 15:12-0400 Body height 162.56 cm [facility] 07-09-2023 15:12-0400 Body mass index (BMI) [Ratio] 48.9 kg/m2 [facility] 07-09-2023 15:12-0400 Body weight 129.27 kg [facility] 07-09-2023 15:12-0400 Diastolic blood pressure 100 mm[Hg] [facility] 07-09-2023 15:12-0400 Heart rate 87 /min [facility] 07-09-2023 15:12-0400 Respiratory rate 18 /min [facility] 07-09-2023 15:12-0400 SaO2% (BldA) [Mass fraction] 95 % [facility] 07-09-2023 15:12-0400 Systolic blood pressure 174 mm[Hg] [facility] Encounters Encounter Date Encounter Type Care Provider Facility Start: 03-22-2024 End: 03-22-2024 Office outpatient visit 25 minutes Sekou Terrazas NP Work Phone: [facility] Comment on above: Lumbosacral radiculo syed (Primary Dx); Degeneration of intervertebral disc of lumbar region with discogenic back pain and lower extremity pain; DDD (degenerative disc disease), cervical; Chronic right shoulder pain; Polyneuropathy; Type 2 diabetes mellitus with diabetic polyneuropathy, without long-term current use of insulin ([facility]) Start: 03-22-2024 End: 03-22-2024 [facility] Result Encounter Sekou Terrazas NP Work Phone: [facility] External Department Unsolicited Start: 03-22-2024 End: 03-22-2024 [facility]inis[facility] Result Encounter Sekou Terrazas NP Work Phone: [facility] External Department Unsolicited Start: 03-14-2024 End: 03-14-2024 ambulatory Radha Benítez MD Facility:[facility] Start: 03-07-2024 End: 03-07-2024 ambulatory Radha Benítez MD Facility:[facility] Start: 02-18-2024 End: 02-18-2024 Bamboo flowsheet Sekou Nini RF TECHNICIAN Work Phone: [facility] [place] [address] Start: 02-18-2024 End: 02-18-2024 Bamboo flowsheet Sekou Wadswortholl RF TECHNICIAN [facility] [address] Start: 02-18-2024 End: 02-18-2024 Office outpatient visit 25 minutes Sekou Terrazas RF TECHNICIAN Work Phone: [facility] [place] [facility] Comment on above: Lumbosacral radiculo syed (Primary Dx); Degeneration of intervertebral disc of lumbar region with discogenic back pain and lower extremity pain; DDD (degenerative disc disease), cervical; Chronic right shoulder pain; Polyneuropathy; Type 2 diabetes mellitus with diabetic polyneuropathy, without long-term current use of insulin ([facility]); Encounter for medication monitoring Start: 02-18-2024 End: 02-18-2024 ambulatory SEKOU TERRAZAS Not Available Start: 01-25-2024 End: 01-25-2024 ambulatory Sekou King Nini Facility:[facility] Start: 01-21-2024 End: 01-21-2024 Bamboo flowsbrenton You DO Work Phone: [facility] [place] [address] Start: 01-21-2024 End: 01-21-2024 Bamboo flowsbrenton You DO Work Phone: [facility] [place] [facility] Start: 01-21-2024 End: 01-21-2024 ambulatory BALDO YOU Not Available Start: 01-21-2024 End: 01-21-2024 Patient encounter procedure Baldo You DO Work Phone: [facility] [place] [facility] Comment on above: Type 2 diabetes ashtyn itus with diabetic polyneuropathy, without long-term current use of insulin ([facility]); Paresthesia Start: 10-13-2023 End: 10-13-2023 ambulatory [facility] Work Phone: Start: 10-13-2023 End: 10-13-2023 Patient encounter procedure [facility] Physician [facility] Work Phone: Start: 10-12-2023 End: 10-12-2023 ambulatory [facility] Work Phone: Start: 10-12-2023 End: 10-12-2023 Patient encounter procedure [facility] Work Phone: Start: 08-10-2023 End: 08-10-2023 ambulatory SEKOU NINI Not Available Start: 07-09-2023 End: 07-09-2023 ambulatory [facility] Work Phone: Start: 07-09-2023 End: 07-09-2023 Patient encounter procedure [facility] Work Phone: Start: 06-10-2023 End: 06-10-2023 ambulatory SEKOU NINI Not Available Start: 06-02-2023 Non-patient / Non-visit [facility] Work Phone: Start: 09-24-2022 End: 09-24-2022 ambulatory EBENEZER Kline Work Phone: [facility] Work Phone: Start: 09-24-2022 End: 09-24-2022 Discharged Recurring EBENEZER Kline Work Phone: [facility] [address] Start: 05-27-2022 End: 05-28-2022 ambulatory DANIELA KLINE Facility:[facility] Start: 10-29-[address] NIYAH HERNANDEZ . Faci lity:[facility]1 Procedures Date Procedure Procedure Detail Performing Clinician Start: 03-22-2024 ALL THYROID STIM HORMONE Sekou Terrazas RF TECHNICIAN Work Phone: Start: 01-21-2024 End: 01-21-2024 Needle emg ea extremty w/paraspinl area complete Sekou Terrazas RF TECHNICIAN Work Phone: Plan of Treatment Date Care Activity Detail Author Start: 07-14-2024 End: 07-14-2024 Patient encounter procedure 07/14/2024 1:20 PM EDT Office Visit [facility] [address] [place] [address] Sekou Terrazas NP [address] [place] [address] [facility] Start: 03-22-2024 End: 03-22-2024 Patient encounter procedure [facility] [address] Start: 02-18-2024 End: 02-17-2025 Cobalamin (Vitamin B12) [Mass/volume] in Serum or Plasma Vitamin B12 Lab Routine Polyneuropathy Encounter for medication monitoring Expected: 02/18/2024 (Approximate), Expires: 02/17/2025 [facility] Comment on above: Expected: 02/18/2024 (Approximate), Expi res: 02/17/2025 Start: 02-18-2024 End: 02-17-2025 IMMUNOFIXATION,SERUM ([facility] IMMUNOFIXATION,SERUM ([facility] Lab Routine Polyneuropathy Expected: 02/18/2024 (Approximate), Expires: 02/17/2025 [facility] Healthcare Comment on above: Expected: 02/18/2024 (Approximate), Expi res: 02/17/2025 Start: 02-18-2024 End: 02-17-2025 Methylmalonate [Moles/volume] in Serum or Plasma Methylmalonic acid, serum Lab Routine Polyneuropathy Encounter for medication monitoring Expected: 02/18/2024 (Approximate), Expires: 02/17/2025 [facility] Comment on above: Expected: 02/18/2024 (Approximate), Expi res: 02/17/2025 Start: 02-18-2024 End: 02-17-2025 Nuclear Ab [Titer] in Serum by Immunofluorescence [facility] Lab Routine Polyneuropathy Expected: 02/18/2024 (Approximate), Expires: 02/17/2025 [facility] Healthcare Comment on above: Expected: 02/18/2024 (Approximate), Expi res: 02/17/2025 Start: 02-18-2024 End: 02-17-2025 Protein electrophoresis, serum Protein electrophoresis, serum Lab Routine Polyneuropathy Expected: 02/18/2024 (Approximate), Expires: 02/17/2025 [facility] Comment on above: Expected: 02/18/2024 (Approximate), Expi res: 02/17/2025 Start: 02-18-2024 End: 02-17-2025 Thyrotropin [Units/volume] in Serum or Plasma TSH Lab Routine Polyneuropathy Encounter for medication monitoring Expected: 02/18/2024 (Approximate), Expires: 02/17/2025 [facility] Work Phone: Comment on above: Expected: 02/18/2024 (Approximate), Expi res: 02/17/2025 Start: 02-18-2024 End: 02-18-2024 Patient encounter procedure [facility] [address] Comment on above: Arrived Start: 11-22-2023 Pneumococcal Vaccine: 65+ Years (1 of 1 - PCV) Pneumococcal Vaccine: 65+ Years (1 of 1 - PCV) [facility] Start: 10-18-2023 Influenza vaccination Influenza Vaccine (#1) [facility] Start: 07-09-2023 Patient referral [facility] Work Phone: Start: 1960 Screening for malignant neoplasm of colon [facility] Comprehensive metabo lic 2000 panel - Serum or Plasma [facility] Patient Education Diabetes and diet [facility] Work Phone: Patient referral [facility] Work Phone: [facility] Immunizations Immunization Date Immunization Notes Care Provider Fa ciliema 12-12-2020 influenza virus vaccine, unspecified formulation Baldo You DO Work Phone: [facility] Payers Date Payer Category Payer Medicare (Managed Care) [employer] [id number] 2024 Medicare [id number] 2024 Unknown 2024 Self-pay 2023 Medicaid [id number] 2023 Private Health Insurance [facility] [id number] 2022 Medicaid [id number] 1961 Unknown [id number] 1960 Unknown [id number] 1960 Unknown [id number] 593 1960 Unknown [id number] 1259 1960 Unknown [id number] 1259 1960 Unknown [id number] 1259 1960 Unknown [id number] 1259 1960 Unknown [id number] 196 1960 Unknown [id number] 196 Private Health Insurance [facility] [id number] Unknown [id number] 531 Social History Date Type Detail Facility [facility] ever [facility] Work Phone: Start: 1960 Sex Assigned At Male F [facility] Start: 06-10-2023 Tobacco smoking stat [facility] Ex-smoker [facility] History of tobacco use Current smoker [facility] Start: 06-10-2023 Tobacco use and exposure User of smokeless tobacco [facility] History of tobacco use Chews Tobacco [facility] Start: 08-10-2023 End: 03-22-2024 Alcoholic beverage intake Ex-drinker (finding) [facility] Start: 08-10-2023 End: 03-22-2024 History of Social function [facility] Start: 08-10-2023 End: 03-22-2024 Tobacco use panel [facility] Start: 06-10-2023 Tobacco Comment Quit smoking in 1976 [facility] Start: 06-10-2023 Alcohol Comment No caffeine intake [facility] Start: 1960 Sex assigned at Not on file N [facility] Start: 02-18-2024 Alcohol Comment No alcohol use since 03/19/2019. No caffeine intake [facility] Clinical Notes 01-21-2024 to 03-22-2024 Sekou Terrazas, FAB - 03/22/2024 2:20 PM ESTPatient InstructionsSekou Terrazas, FAB - 02/18/2024 11:00 AM ESTPatient InstructionsJACKSON MelendezT - 01/21/2024 11:00 AM EST Note Date & Type Note Facility 03-22-2024 History of Presen t illness Narrative Images from the original note were not included. Chief Complaint Patient presents with Back Pain Neck Pain Subjective Tristin Jernigan is a 63 y.o. male. History of Present Illness The patient presents today for follow-up for back pain, neck pain, and polyneuropathy. He had labs completed for review. However, these were drawn today around 8:00 am, and we have not yet received all of the results. At the prior neurology appointment, the patient was referred to pain management and neurosurgery. He is following with pain management in [place], [place]. He states he was never contacted by neurosurgery to schedule an appointment, so he has not been evaluated by their team. He would like to see them for consult. At the previous appointment, duloxetine was also prescribed. The patient is taking duloxetine 30 mg daily. He has tolerated the medication well and denies any adverse effects but states it has not provided any noticeable benefit. The patient continues to have constant bilateral low back pain (right more significant than left). This will radiate to the posterior aspect of the lower extremities intermittently. He also reports pain in the coccyx. His legs feel weak, but he denies progressive worsening. He states he had bilateral lumbar injections on 03/14/2024 with pain management, and these reduced his low back pain on the left but aggravated his low back pain on the right. He states pain management prescribed hydrocodone-acetaminophen 5-325 mg but, I don't think those were strong enough or something. They did not help his pain at all. He admits to taking his gabapentin irregularly. He states he will take gabapentin 600 mg twice a day for periods of time, and then it will seem to decrease in effectiveness, so he stops use. He states he will restart the medication a few days later, and then it seems to be helpful again. The patient states he hardly does anything aside from lay in bed because standing and physical activity aggravate his back pain. He states when he leaves here, he is going back to his house to go to bed. He has purchased paper plates and plastic silverware so he no longer has to stand for extended periods of time to wash the dishes. The patient's neuropathy symptoms have not worsened since the prior neurology appointment. His neck pain has remained stable and is intermittent. He denies weakness, numbness, or sensory disturbance in his upper extremities. He denies bowel or bladder dysfunction and denies saddle anesthesia. He follows up with pain management tomorrow. Review of Systems Constitutional: Negative for appetite [...] nervous/anxious. Past Medical History: Diagnosis Date Asthma ([facility]) Cervical radiculopathy COPD (chronic obstructive pulmonary disease) ([facility]) Diabetes mellitus ([facility]) Gout History of degenerative disc disease Hypertension ([facility]) Lumbosacral radiculopathy Memory changes Neuropathy Past Surgical History: Procedure Laterality Date ABDOMINAL [...] Allergies: Patient has no known allergies. Vitals: 03/22/24 1427 BP: 142/80 Pulse: 80 SpO2: 95% Body mass index is 39.84 kg/m . weight: 262 lb Neurologic exam: Mental status and general appearance: Awake and alert with unlabored respirations. Oriented to person, place, and time. Recent and remote memory are intact. Speech is clear and fluent without aphasia. Speech is non-dysarthric. Speech is often circumferential and/or tangential. Difficulty staying on topic. Attention and concentration are somewhat impaired. Fund of knowledge is appropriate for level of education. Obese. Pleasant. Cranial nerves: CN II: Visual acuity is [...] wrist extensors , wrist flexor , and handkerchief presser strength 5/5. Limited range of motion in the right shoulder. LUE strength deltoid , biceps , triceps , wrist extensors , wrist flexor , and handkerchief presser strength 5/5. RLE strength iliopsoas, quadriceps, tibialis [...] reflex 0. LLE knee reflex 0. Coordination: Xsrxul-rd-dmfj testing normal. Rapid alternating movements are normal. Gait: Appears mildly antalgic. Utilizing cane. Review and summary of old records: Labs on 03/22/2024: TSH 2.891. Other results are reportedly pending, as these were send out labs. MRI of the lumbar spine without contrast at [facility] on 01/25/2024: Significant multilevel degenerative changes contributing [...] the spinal canal with moderate right and sgfdiuna-jd-dxuyrb left neural foraminal narrowing. At L5-S1, there [...] EMG of the bilateral lower extremities at [facility] on 01/21/2024: [...] some moderate to severe stenosis. The patient continues to report significant low back pain with radicular pain in the bilateral S1 dermatomal distribution and mild lower extremity weakness. He also reports painful paresthesias in the distal lower extremities, but these may be multifactorial and due to lumbosacral radiculopathy and neuropathy. He is taking meloxicam and gabapentin with subjective benefit. However, symptoms persist and remain bothersome. Low dose gabapentin and hydrocodone-acetaminophen have been ineffective. Lower extremity strength is normal on clinical exam. PLAN: - The patient has established care with pain management, and I will defer further management of his pain to their team at this time - The patient was also referred to neurosurgery at the prior appointment but states he was not contacted by their office to schedule an appointment. I provided him with the number to Dr. Mcnamara's office and advised him to call and schedule an appointment. He states he will do so. He understands to notify our office if he has any difficulty scheduling an appointment - I offered to increase duloxetine dose to help reduce the patient's low back pain and neuropathic pain. The patient refused and states he would like to simply stop this - Stop duloxetine - The patient is taking Meloxicam 15 mg by mouth once a day and gabapentin (prescribed by primary care provider). I encouraged him to take his gabapentin as prescribed again today Cervical radiculopathy DDD (degenerative disc disease), cervical [...] is more likely related to a shoulder pathology than a radicular cause. Tizanidine (4 mg PO BID PRN) was ineffective in the past. PLAN: - Patient to call to schedule an appointment with neurosurgery as detailed above - He is taking Meloxicam and gabapentin as detailed above Chronic right shoulder pain PLAN: - Follow up with orthopedic surgery for management Polyneuropathy Type 2 diabetes mellitus with diabetic polyneuropathy, without long-term current use of insulin ([facility]) The patient has polyneuropathy as identified on BLE EMG from 01/21/2024 (mild, axonal loss). I believe this is likely due to poorly controlled diabetes mellitus, however, labs have been ordered to evaluate for other possible causes. Neuropathy is likely contributing to the patient's lower extremity sensory decrements and imbalance. PLAN: - The patient had labs drawn earlier today for polyneuropathy lab work up, but results are currently pending - Follow up closely with software quality assurance specialist and primary care provider to help improve blood glucose management and prevent further nerve damage - Continue fall prevention measures Diagnosis and treatment options discussed in detail. All questions answered. The patient verbalizes understanding and is agreeable to the plan. Discussion in layman's terms. Follow up in the office within 4 months; sooner if needed for new or worsening symptoms. Sekou Terrazas NP [facility] documented in this encounter [facility] 03-22-2024 Instructions Sekou Terrazas NP - 03/22/2024 2:20 PM EST - Stop duloxetine documented in this encounter [facility] 02-18-2024 History of Presen t illness Narrative [...] He states his sciatica pain increased on Jermyn Rosaline. He continues to have painful paresthesias [...] nervous/anxious. Past Medical History: Diagnosis Date Asthma ([facility]) Cervical radiculopathy COPD (chronic obstructive pulmonary disease) (CMS/HCC) Diabetes mellitus (CMS/HCC) Gout Hypertension (CMS/HCC) Lumbosacral radiculopathy Memory changes Past Surgical History: [...] wrist extensors , wrist flexor , and handkerchief presser strength 5/5. Limited range of motion in the right shoulder. LUE strength deltoid , biceps , triceps , wrist extensors , wrist flexor , and handkerchief presser strength 5/5. RLE strength iliopsoas, quadriceps, tibialis [...] reflex 0. LLE knee reflex 0. Coordination: Giakwf-uy-iqkt testing normal. Rapid alternating movements are normal. Gait: Appears antalgic. Utilizing cane. Review and summary of old records: MRI of the lumbar spine without contrast at [facility] on 01/25/2024: Significant multilevel degenerative changes contributing [...] the spinal canal with moderate right and jdvutjsh-rx-orxnae left neural foraminal narrowing. At L5-S1, there [...] EMG of the bilateral lower extremities at [facility] on 01/21/2024: [...] polyneuropathy, without long-term current use of insulin ([facility]) The patient has polyneuropathy as [...] of neuropathy - Follow up closely with software quality assurance specialist and primary care provider to help [...] [facility] documented in this encounter [facility] 02-18-2024 Instructions Sekou Terrazas NP - 02/18/2024 11:00 AM EST - Start duloxetine 30 mg by mouth once a day for chronic back pain - Referral to pain management and neurosurgery - Check labs to evaluate for causes of polyneuropathy documented in this encounter [facility] 01-21-2024 History of Presen t illness Narrative Images from the original note were not included. Reason for Appointment: EMG Patient: Tristin Jernigan : 1960 EMG Computer: [employer] Referring Physician: Sekou Terrazas SOLAR MECHANICAL ENGINEER EMG: BLE swabber: Alfonso Martins RT(R) Office Location: [place] Reason for EMG: c/o numbness/tingling & cramping [...] of the test. documented in this encounter [facility] Chief complaint+Reason for visit Narrative Reason for Visit BMI 45.0-49.9, adult Dietary counseling and surveillance Hyperlipidemia Hypertension Type 2 diabetes mellitus with hyperglycemia [facility] Work Phone: Chief complaint+Reason for visit Narrative* Chief Complaint 3 month f/u / meter Reason for Visit BMI 45.0-49.9, adult Dietary counseling and surveillance Hyperlipidemia Hypertension Type 2 diabetes mellitus with hyperglycemia [facility] Work Phone: Evaluation noteNo assessment information available [facility] Work Phone: Evaluation note* Diagnosis Onset Date Resolution Status BMI 45.0-49.9, adult acute Dietary counseling and surveillance acute Hyperlipidemia acute Hypertension acute Type 2 diabetes mellitus with hyperglycemia acute [facility] Work Phone: Evaluation note* Diagnosis Type 2 diabetes mellitus with diabetic polyneuropathy, without long-term current use of insulin ([facility]) Paresthesia Disturbance of skin sensation [facility] Diagnosis Lumbosacral radiculopathy- Primary Thoracic or lumbosacral [...] polyneuropathy, without long-term current use of insulin ([facility]) Encounter for medication monitoring Encounter for therapeutic drug monitoring documented in this encounter [facility] HealthcareEvaluation note* Diagnosis Lumbosacral radiculopathy- Primary Thoracic or lumbosacral [...] polyneuropathy, without long-term current use of insulin ([facility]) documented in this encounter [facility] Discharge instructionsAmbulatory Orders* Referral to Diabetes Education Location: None Selected * Referral to Loop Machine Operator Location: None Selected [facility] Work Phone: Summary Purpose Family History [...] and content) DATE CREATED AUTHOR 06/01/2022 [facility] DATE CREATED AUTHOR AUTHOR'S ORGANIZ ATION 01/31/[address] [facility] DATE CREATED AUTHOR AUTHOR'S ORGANIZ ATION 02/25/2024 [facility] EPIC DATE CREATED AUTHOR AUTHOR'S ORGANIZ ATION 03/20/2024 [facility] Care Teams (unrecognized sec tion and content) [...] October 13, 2023 End: October 13, 2023 Preschool Teacher Relationship Specialty Start Date End Date Baldo You DO [address] [address] Referring Physician Neurology 02/18/24 Preschool Teacher Relationship Specialty Start Date End Date Baldo You DO [address] [address] Referring Physician Neurology 02/18/24 Preschool Teacher Relationship Specialty Start Date End Date Baldo You DO [address] [address] Referring Physician Neurology 02/18/24 Preschool Teacher Relationship Specialty Start Date End Date Baldo You DO [address] [place] [id number] Referring Physician Neurology 02/18/24 Goals (unrecognized section and content) Goals may be documented in a n alternate sectionGoals may be documented in an alternate sectionGoals may be documented in an alternate sectionGoals may be documented in an alternate section Reason for Visit (unrecogniz ed section and content) Reason Comments Back Pain Neck Pain Reason Comments Back Pain Neck Pain FOR [...] BE BASED ON THE PRIMARY CLINICAL RECORDS. [facility] [facility]. provides no warranty or guarantee of the accuracy or completeness of information in this document.
--- NOTE | 2024-03-23 10:41 | P.CN_ITS ---
Consult Note: HPI Data of Consult Patient: known to practice within the last 3 years Requesting Physician: Karena Raymundo NP Primary Care Provider: Non-Staff Physician, MD Consult Narrative Reason for consult: f/u Narrative: Tristin Jernigan a 63 year old male presents for evaluation of chronic back and SIJ pain. pt has longstanding hx of back pain and BLE pain with standing, walking, bending, stairs, lifting. Pain 10/10 today sharp in bilateral low back, denies numbness tingling weakness. recently underwent bilateral L4-5 TFESI with no improvement. unfortunately his UDS came back positive for cocaine, methamphetamines, amphetamines, and marijuana which has resulted in NNCP. furthermore id recommend an injection only care plan and addiciton medicine consultation. Pt pending NS workup, has not called to schedule an appointment. prior lumbar MRI consistent with multilevel DDD and stenosis. pt has failed to benefit from 6 weeks of provider guided HEP/PT, heat, ice, tylenol and NSAIDs. cc:: CC: Karena Raymundo NP Review of Systems ROS Status of ROS 10 or more systems reviewed and unremark able except as noted in history and below Musculoskeletal Reports: back pain and [facility] Medical History (Updated 03/07/24 @ 14:08 by Kylie Jefferson RN) Rupture of bowel ?K63.1 - Perforation of intestine (nontraumatic) (ICD-10) Diabetes ?E11.9 - Type 2 diabetes mellitus without complications (ICD-10) Asthma ?J45.909 - Unspecified asthma, uncomplicated (ICD-10) HTN (hypertension) ?I10 - Essential (primary) hypertension (ICD-10) Surgical History History of resection of large bowel ?Z90.49 - Acquired absence of other specified parts of digestive tract (ICD- 10) History of colostomy reversal ?Z98.890 - Other specified postprocedural states (ICD-10) History of ear surgery ?Z98.890 - Other specified postprocedural states (ICD-10) History of surgery on arm ?Z98.890 - Other specified postprocedural states (ICD-10) History of knee surgery ?Z98.890 - Other specified postprocedural states (ICD-10) Social History Smoking status: Former smoker Little interest or pleasure in doing things: not at all Feeling down, depressed, or hopeless: not at all Meds Home Medications and Allergies Home Medications ?Medication ?Instructions ?Recorded ?Confirmed ?Type allopurinol 100 mg tablet 100 mg PO Q12H 09/12/22 03/14/24 History dicyclomine 20 mg tablet 20 mg PO TID PRN abdominal pain #7 09/12/22 03/14/24 Rx tabs dulaglutide 0.75 mg/0.5 mL 0.75 mg subcut .weekly 09/12/22 03/14/24 History subcutaneous pen injector (Trulicity) lisinopril 10 mg tablet 10 mg PO DAILY 09/12/22 03/14/24 History oxybutynin chloride 15 mg 15 mg PO DAILY 09/12/22 03/14/24 History tablet,extended release 24 hr orphenadrine citrate 100 mg 100 mg PO BID PRN muscle spasm #14 02/10/24 03/14/24 Rx tablet,extended release tabs hydrocodone 5 mg-acetaminophen 325 1 tab PO BID PRN pain #28 tabs 03/07/24 03/14/24 Rx mg tablet Allergies Allergy/AdvReac Type Severity Reaction Status Date / Time No Known Drug Allergies Allergy Verified 03/14/24 09:36 Exam Constitutional Documenting provider has reviewed patient's vital signs: yes Common normals: no apparent distress, oriented x3, healthy appearing, alert and well nourished General appearance: cooperative HENMT Common normals: normocephalic, hearing grossly normal bilaterally and moist oral mucous membranes Head and scalp: normocephalic Eye Common normals: PERRL Pupil: PERRL Neck & C-Spine Common normals: full ROM General: normal visual inspection Chest Common normals: inspection of chest normal Respiratory Common normals: normal respiratory effort, no retractions and no use of accessory muscles Back & Pelvis Lumbar spine/lower back: ROM limited, pain with ROM, straight leg raise positive right and straight leg raise positive left Sacroiliac joints: SI joint(s) abnormal Other: bilateral sij positive nasir(patricks), gaenslens, thigh thrust, compression test strength 4/5 in BLE Neuro Common normals: oriented x3, CN's II-XII intact bilaterally, moves all extremities, no focal motor deficits, no sensory deficits noted and deep tendon reflexes 2+ bilaterally Sensorium/orientation: alert Motor exam: no movement abnormalities noted Psych Common normals: mental status grossly normal, thought process normal, cooperative, affect normal, speech normal and activity/motor behavior normal Speech: normal speech Thought process: normal thought process Results Additional Findings Additional findings: If on a controlled substance or opioids, I have checked an [place]AR[place] report on this patient and there are no aberrancies noted in the prescribing history.??If on a controlled substance or opioid a drug screen was completed and reviewed within the last year, and if there has not been a drug screen completed we ordered one today to monitor higher risk, state monitored pain medication use. As part of providing excellent, safe, comprehensive care, the following was completed at our patient's visit: 1. A medication reconciliation and review to ensure accurate knowledge of current/active medications, including asking our patients to inform us about any ikpr-pyu-lsjbwwj medications or herbal remedies/nutritional supplements /alternative remedies. 2. A review to specifically ensure our patients have had annual screening for screening for depression, screening for tobacco use, and screening for unhealthy alcohol use. For concerning screenings had a discussion with the patient, provided patient education, and recommended follow-up with primary care provider when appropriate. If patient noted with a risk of falling, they received education on strength, gait, and balance training to prevent future risk of falling. Portions of this note may have been carried over from the previous visit and updated as appropriate. Please note this office utilizes paper charting in addition to the electronic medical record. A list of current medications, vitals, and PMH is available there as the clinical staff outside of myself do not have access to [place] charting during the clinic day operations. As part of providing quality comprehensive care the current medications, vitals, and PMH were reviewed in the paper chart. Assessment and Plan Assessment and Plan (1) Lumbar stenosis with neurogenic claudication: (2) Sacroiliac joint dysfunction of both sides: (3) Lumbar spondylosis: Plan bilateral SIJ injection under fluoroscopy continue HEP as tolerated defer medication management handout provided for addiction medicine consultation at [facility], pt declining referral states he does not utilize drugs only utilizes marijuana f/u after injection
== END 2024-03-23 10:11 | disposition home or self-care (01) ==
PROVIDERS: Visit Provider Nurse Practitioner
DX: M48.062 Spinal stenosis, lumbar region with neurogenic claudication (principal); M53.3 Sacrococcygeal disorders, not elsewhere classified; M47.816 Spondylosis without myelopathy or radiculopathy, lumbar region
CPT/HCPCS: G0463

== ENCOUNTER 2024-04-25 08:54 | Day surgery (SDC) | payer MEDICARE, SELFPAY ==
[2024-04-25 09:19] VITALS: BP 174/98; PULSE 83; TEMP 36.9; O2SAT 94
[2024-04-25 09:25] LABS: Glucometer 228 mg/dL (74-106)
[2024-04-25 10:03] VITALS: BP 163/97; PULSE 74; O2SAT 95
[2024-04-25] MEDS: IOHEXOL 240 MG/ML - 10 ML VIAL INJ (10:04)
[2024-04-25] MEDS: BUPIVACAINE HCL 0.25% PF 25 MG/10 ML VIAL 4 ML INJ (10:04)
[2024-04-25] MEDS: LIDOCAINE HCL 2% 400 MG/20 ML MDV INJ (10:05)
[2024-04-25] MEDS: METHYLPREDNISOLONE ACETATE 40 MG/ML VIAL INJ ×2 (10:05)
[2024-04-25 10:06] VITALS: BP 160/90; PULSE 77; O2SAT 94
--- NOTE | 2024-04-25 10:07 | W.PM.PROCNOT ---
Date of procedure: 04/25/24 Pre-op diagnosis: Pain due to bilateral sacroiliitis Post-op diagnosis: same as pre-op Procedure: Procedure: Bilateral sacroiliac joint injection Medications: Bupivacaine 0.25% 3cc, depomedrol 40mg x2 After informed consent was obtained, the patient was brought to the medical procedure unit and placed in the prone position, when a timeout was completed verifying correct patient, procedure, site, positioning, implant, and/or special equipment.? The skin overlying the area was prepped and draped in standard sterile fashion using alcohol.? A 25-gauge needle was inserted towards the left sacroiliac joint under direct fluoroscopic imaging.? Needle tip was advanced until the joint was encountered.? We instilled a total of 2 mL of solution.? The same procedure was then completed on the right side.? Postoperatively needles were removed.? The patient tolerated the procedure well without complication.? The patient reported reduction in pain symptoms postoperatively. Anesthesia: Local Surgeon: Radha Benítez Pathology: none sent Condition: stable Disposition: no change
== END 2024-04-25 10:10 | disposition home or self-care (01) ==
PROVIDERS: Visit Provider Anesthesiology
DX: M46.1 Sacroiliitis, not elsewhere classified (principal); E11.9 Type 2 diabetes mellitus without complications; Z79.84 Long term (current) use of oral hypoglycemic drugs
CPT/HCPCS: 27096; 36415; 82948; J0665; J1010; Q9966

== ENCOUNTER 2024-05-05 11:02 | Outpatient (OUT) | payer MEDICARE, MEDICAID, SELFPAY ==
--- OUTSIDE RECORDS SUMMARY | 2024-05-05 11:19 | XMS_ITS | CCD ---
Demographics Address [address] [place] [address] Preferred Language en Marital Status Single Islam Affiliation Unknown Race White Ethnic Group Not or Lati no Author Organization [facility] Care Team Providers Care Multiskill Operator Name Role Phone MARY Mosher, DR NIYAH Barton Admitting Unavailable DR NIYAH GONZALEZ Attending Unavailable DANIELA KLINE Primary Care Unavailable DANIELA KLINE Admitting Unavailable DANIELA KLINE Attending Unavailable DANIELA KLINE Primary Care Unavailable Hua Huerta Consulting Unavailable DANIELA KLINE Consulting Unavailable DO Baldo You Attending Provider [phone] EBENEZER Kline Primary Care Provider Unavailable Primary Care Provider UnavailSekou Mcclure Admitting Unavailable Sekou Terrazas Attending Unavailable NO FAMILY, PHYSICIAN Primary Care Unavailable Baldo You DO Unavailable SEKOU TERRAZAS Attending Unavailable SEKOU TERRAZAS Attending Unavailable SEKOU TERRAZAS Attending Unavailable BALDO YOU Attending Unavailable SEKOU TERRAZAS Attending Unavailable Jeyson OLIVEROS, Radha Laird Attending Unavailable Jeyson OLIVEROS, Radha Laird Attending Unavailable Jeyson OLIVEROS, Radha Laird Attending Unavailable Medications Current Medications Medication Drug Class(es) Dates Sig (Normalized) Sig (Original) acetaminophen 325 mg / HYDROcodone bitartrate 5 mg oral tablet (3 sources) Opioid Agonist Start: 03-07-2024 take 1 tablet by mouth twice daily as needed HYDROcodone-acetam inophen (Escanaba) 5-325 MG tablet Take 1 tablet by mouth 2 (two) times a day as needed 03/07/2024 Active [id number] actuat albuterol 0.09 mg/actuat metered dose inhaler (9 sources) beta2-Adrenergic Agonist Start: 01-02-2023 take 1 puff(s) by inhalation every six hours albuterol HFA 90 mcg/act inhaler Inhale 1 puff every 6 (six) hours if needed 01/02/2023 Active allopurinol 100 mg oral tablet (9 sources) Xanthine Oxidase Inhibitor take 1 tablet by mouth in the morning allopurinol (Zyloprim) 100 MG tablet Take 100 mg by mouth in the morning and 100 mg before bedtime. Active Blood-Glucose Meter,Continuous (Freestyle Jeromy 3 [place]) misc (2 sources) Start: 10-12-2023 Blood-Glucose Meter,Continuous (Freestyle Jeromy 3 [place]) misc Active 0 .ROUTE .MEDSUPPLY 1 October 12, 2023 12:00am As directed Blood-Glucose Sensor (Freestyle Jeromy 3 Sensor) device (2 sources) Start: 10-12-2023 Blood-Glucose Sensor (Freestyle Jeromy 3 Sensor) device Active 0 .ROUTE .MEDSUPPLY 2 October 12, 2023 12:00am change every 14 days diazePAM 5 mg oral tablet (9 sources) Benzodiazepine Start: 11-11-2022 take 1 tablet by mouth every eight hours as needed diazePAM (Valium) 5 MG tablet Take 5 mg by mouth every 8 (eight) hours if needed 11/11/2022 Active dicyclomine hydrochloride 20 mg oral tablet (9 sources) Anticholinergic Start: 09-12-2022 take 1 tablet by mouth four times daily as needed dicyclomine (Bentyl) 20 MG tablet Take 20 mg by mouth 4 (four) times a day as needed 09/12/2022 Active doxycycline monohydrate 100 mg oral tablet (9 sources) Tetracycline-class Drug Start: 08-22-2022 take 1 tablet by mouth in the morning doxycycline (Adoxa) 100 MG tablet Take 100 mg by mouth in the morning and 100 mg before bedtime. 08/22/2022 Active dulaglutide (Trulicity) 3 MG/0.5ML solution pen-injector (9 sources) inject 3 mg by subcutaneous injection every week dulaglutide (Trulicity) 3 MG/0.5ML solution pen-injector Inject 3 mg under the skin 1 (one) time per week Active empagliflozin 25 mg oral tablet (12 sources) Sodium-Glucose Cotransporter 2 Inhibitor Start: 07-09-2023 take 25 mg by mouth once daily empagliflozin (Jardiance) 25 MG Take 25 mg by mouth Daily 07/09/2023 Active furosemide 40 mg oral tablet (9 sources) Loop Diuretic take 1 tablet by mouth in the morning furosemide (Lasix) 40 MG tablet Take 40 mg by mouth in the morning and 40 mg before bedtime. Active gabapentin 600 mg oral tablet (12 sources) Anti-epileptic Agent Start: 07-09-2023 take 600 mg by mouth three times daily Gabapentin Active 600 MG PO Three times daily July 09, 2023 12:00am 200 actuat ipratropium bromide 0.017 mg/actuat metered dose inhaler (12 sources) Anticholinergic Start: 07-09-2023 take 1 puff(s) by inhalation every eight hours Ipratropium Wendel (Atrovent Hfa) 17 mcg/actuation HFA aerosol inhaler Active 2 PUFF INHALATION Every 8 hours July 09, 2023 12:00am ipratropium (Atr ovent) 17 MCG/ACT inhaler Inhale 2 puffs Active lisinopril 40 mg oral tablet (12 sources) Angiotensin Converting Enzyme Inhibitor Start: 07-09-2023 take 40 mg by mouth once daily Lisinopril Active 40 MG PO Daily July 09, 2023 12:00am take 1 tablet by mouth once andrew y lisinopril 10 MG tablet Take 10 mg by mouth Daily Active meloxicam 15 mg oral tablet (12 sources) Nonsteroidal Anti-inflammatory Drug Start: 07-09-2023 take 15 mg by mouth once daily Meloxicam Active 15 MG PO Daily July 09, 2023 12:00am metFORMIN hydrochloride 1000 mg oral tablet (9 sources) Biguanide take 1 tablet by mouth in the morning metFORMIN (Glucophage) 1000 MG tablet Take 1,000 mg by mouth in the morning and 1,000 mg in the evening. Take with meals. Active ondansetron 4 mg disintegrating oral tablet (9 sources) Serotonin-3 Receptor Antagonist Start: 09-12-2022 take 1 tablet by mouth every eight hours as needed ondansetron ODT (Zofran-ODT) 4 MG disintegrating tablet Take 4 mg by mouth every 8 (eight) hours if needed 09/12/2022 Active 24 hr oxybutynin chloride 15 mg extended release oral tablet (12 sources) Cholinergic Muscarinic Antagonist Start: 07-09-2023 take 15 mg by mouth once daily Oxybutynin Chloride Active 15 MG PO Daily July 09, 2023 12:00am potassium chloride 10 meq extended release oral tablet (9 sources) take 1 tablet by mouth in [...] Semaglutide,0.25 or 0.5MG/DOS, 2 MG/3ML solution pen-injector (9 sources) Start: 07-09-2023 inject 0.5 mg by [...] before activity SITagliptin 100 mg oral tablet (12 sources) Dipeptidyl Peptidase 4 Inhibitor Start: 03-24-2023 [...] week 9 84 July 09, 2023 12:00am tiZANidine 4 mg oral capsule (12 sources) Central alpha-2 Adrenergic Agonist Start: 07-09-2023 [...] Onset: 06-01-2022 Episodic Diabetes mellitus with complications (20 sources) Hyperglycemia due to type 2 diabetes [...] sources) Gout; Translations: [Gout, unspecified] 07-09-2023 Chronic Immunizations and screening for infectious disease (2 sources) Anti-nuclear factor positive; Translations: [Other specified abnormal immunological findings in serum] 03-24-2024 Episodic Mood disorders (3 sources) Bipolar disorder; Translations: [...] unspecified cervical region] Onset: 06-10-2023 06-10-2023 Chronic Past or Other Problems Problem Classification Problem Date Documented Da te Episodic/Chronic Other nervous system disorders (10 sources) Paresthesia; Translations: [Paresthesia of skin] Onset: 06-10-2023 06-10-2023 Episodic Other non-traumatic joint disorders (9 sources) Pain in right shoulder; Translations: [Pain in joint, shoulder region] Onset: 06-10-2023 06-10-2023 Episodic Spondylosis; intervertebral disc disorders; other back problems (20 sources) Cervical radiculopathy; Translations: [Radiculopathy, cervical region] Onset: 06-10-2023 06-10-2023 Episodic Results Test Name Value Interpretation Reference Range Facility ALL THYROID STIM HORMONEon 0 03-22-2024 TSH Qn 2.891 m[IU]/L [facility] XR pre/post mri xrayon 01-24 XR pre/post mri xray [facility] [place] [address] MRI Report Signed Patient: Tristin Jernigan MR#: [id number] : 1960 Acct:[id number] Age/Sex: 63 / M ADM Date: 01/25/24 Loc: [facility] Room: Type: [facility] Attending Dr: Sekou GREEN Copies to: NORMA Villagomez Ordering Provider: NORMA Villagomez Date of Service: 01/25/24 MR/MR lumbar spine wo con: M54.17 ([id number]) XR/XR pre/post mri xray: LUMBAR MRI MR [...] Daniel Hobson M.D.01/25/2024 3:38 PM Dictation Location: [facility]- Transcribed By: CAN 01/25/24 1538 Dictated By: Jose Daniel Hobson II, MD 01/25/24 1528 Signed By: 01/25/24 [address] 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 EMG 2 ExtremitiesOrdered By: Baldo You on 01-21-2024 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 03-22-2024 14:27-0500 Body weight 118.84 kg Sekou Terrazas NUCLEAR MEDICINE PHYSICIAN Work Phone: [facility] 03-22-2024 14:27-0500 Diastolic blood pressure 80 mm[Hg] Sekou Terrazas NUCLEAR MEDICINE PHYSICIAN Work Phone: [facility] 03-22-2024 14:27-0500 Heart rate 80 /min Sekou Terrazas NUCLEAR MEDICINE PHYSICIAN Work Phone: [facility] 03-22-2024 14:27-0500 SaO2% (BldA) [Mass fraction] 95 % Sekou Terrazas NUCLEAR MEDICINE PHYSICIAN Work Phone: [facility] 03-22-2024 14:27-0500 Systolic blood pressure 142 mm[Hg] Sekou Terrazas NUCLEAR MEDICINE PHYSICIAN Work Phone: [facility] 02-18-2024 10:56-0500 Body height 172.7 cm Sekou Terrazas NUCLEAR MEDICINE PHYSICIAN Work Phone: [facility] 02-18-2024 10:56-0500 Body mass index (BMI) [Ratio] 39.84 kg/m2 Sekou Terrazas NUCLEAR MEDICINE PHYSICIAN Work Phone: [facility] 02-18-2024 10:56-0500 Body weight 118.84 kg Sekou Terrazas NUCLEAR MEDICINE PHYSICIAN Work Phone: [facility] 02-18-2024 10:56-0500 Diastolic blood pressure 80 mm[Hg] Sekou Terrazas NUCLEAR MEDICINE PHYSICIAN Work Phone: [facility] 02-18-2024 10:56-0500 Heart rate 96 /min Sekou Terrazas NUCLEAR MEDICINE PHYSICIAN Work Phone: [facility] 02-18-2024 10:56-0500 SaO2% (BldA) [Mass fraction] 97 % Sekou Terrazas NUCLEAR MEDICINE PHYSICIAN Work Phone: [facility] 02-18-2024 10:56-0500 Systolic blood pressure 142 mm[Hg] Sekou Terrazas NUCLEAR MEDICINE PHYSICIAN Work Phone: [facility] 10-12-2023 10:22-0400 Diastolic blood pressure 86 mm[Hg] [facility] 10-12-2023 10:22-0400 Systolic blood pressure 135 mm[Hg] [facility] 10-12-2023 10:20-0400 Body height 162.56 cm [facility] 10-12-2023 10:20-0400 Body mass index (BMI) [Ratio] 46.2 kg/m2 [facility] 10-12-2023 10:20-0400 Body weight 122.21 kg [facility] 10-12-2023 10:20-0400 Heart rate 90 /min [facility] 10-12-2023 10:20-0400 Respiratory rate 18 /min [facility] 10-12-2023 10:20-0400 SaO2% (BldA) [Mass fraction] 94 % [facility] 07-09-2023 15:12-0400 Body height 162.56 cm [facility] 07-09-2023 15:12-0400 Body mass index (BMI) [Ratio] 48.9 kg/m2 [facility] 07-09-2023 15:12-0400 Body weight 129.27 kg [facility] 07-09-2023 15:12-0400 Diastolic blood pressure 100 mm[Hg] [facility] 07-09-2023 15:12-0400 Heart rate 87 /min [facility] 07-09-2023 15:12-0400 Respiratory rate 18 /min [facility] 07-09-2023 15:12-0400 SaO2% (BldA) [Mass fraction] 95 % [facility] 07-09-2023 15:12-0400 Systolic blood pressure 174 mm[Hg] [facility] Encounters Encounter Date Encounter Type Care Provider Facility Start: 04-25-2024 End: 04-25-2024 ambulatory Radha Benítez MD Facility:[facility] Start: 03-24-2024 End: 03-24-2024 Telephone encounter Sekou Terrazas NP Work Phone: [facility] Start: 03-22-2024 End: 03-22-2024 ambulatory SEKOU TERRAZAS Not Available Start: 03-22-2024 End: 03-22-2024 Office outpatient visit 25 minutes Sekou Terrazas NP Work Phone: [facility] Comment on above: Lumbosacral radiculo syed (Primary Dx); Degeneration of intervertebral disc of lumbar region with discogenic back pain and lower extremity pain; DDD (degenerative disc disease), cervical; Chronic right shoulder pain; Polyneuropathy; Type 2 diabetes mellitus with diabetic polyneuropathy, without long-term current use of insulin ([facility]) Start: 03-22-2024 End: 03-22-2024 [facility] Result Encounter Sekou Nini NUCLEAR MEDICINE PHYSICIAN Work Phone: [facility] Department Unsolicited Start: 03-22-2024 End: 03-22-2024 Clinisync Result Encounter Sekou Wadswortholl NUCLEAR MEDICINE PHYSICIAN Work Phone: [facility] Unsolicited Start: 03-14-2024 End: 03-14-2024 ambulatory Radha Benítez MD Facility: [place] Start: 03-07-2024 End: 03-07-2024 ambulatory Radha Benítez MD Facility: [place] Start: 02-18-2024 End: 02-18-2024 Bamboo flowsheet Sekou Terrazas NUCLEAR MEDICINE PHYSICIAN Work Phone: [address] [facility] Start: 02-18-2024 End: 02-18-2024 Bamboo flowsheet Sekou Nini NUCLEAR MEDICINE PHYSICIAN Work Phone: [address] [facility] Start: 02-18-2024 End: 02-18-2024 Office outpatient visit 25 minutes Sekou Nini NUCLEAR MEDICINE PHYSICIAN Work Phone: [address] [facility] Comment on above: Lumbosacral radiculo syed (Primary Dx); Degeneration of intervertebral disc of lumbar region with discogenic back pain and lower extremity pain; DDD (degenerative disc disease), cervical; Chronic right shoulder pain; Polyneuropathy; Type 2 diabetes mellitus with diabetic polyneuropathy, without long-term current use of insulin ([facility]); Encounter for medication monitoring Start: 02-18-2024 End: 02-18-2024 ambulatory SEKOU NINI Not Available Start: 01-25-2024 End: 01-25-2024 ambulatory Sekou Terrazas Facility:[facility] Start: 01-21-2024 End: 01-21-2024 Bamboo flowsheet Baldo You DO Work Phone: [facility] Start: 01-21-2024 End: 01-21-2024 Lmboo flowsheet Baldo You DO Work Phone: [facility] Start: 01-21-2024 End: 01-21-2024 ambulatory BALDO YOU Not Available Start: 01-21-2024 End: 01-21-2024 Patient encounter procedure Baldo You DO Work Phone: [facility] Comment on above: Type 2 diabetes ashtyn itus with diabetic polyneuropathy, without long-term current use of insulin ([facility]); Paresthesia Start: 10-13-2023 End: 10-13-2023 ambulatory [facility] Work Phone: Start: 10-13-2023 End: 10-13-2023 Patient encounter procedure [facility] Physician [facility] Work Phone: Start: 10-12-2023 End: 10-12-2023 ambulatory [facility] Work Phone: Start: 10-12-2023 End: 10-12-2023 Patient encounter procedure [facility] Physician [facility] Work Phone: Start: 08-10-2023 End: 08-10-2023 ambulatory SEKOU TERRAZAS Not Available Start: 07-09-2023 End: 07-09-2023 ambulatory [facility] Work Phone: Start: 07-09-2023 End: 07-09-2023 Patient encounter procedure [facility] Physician [facility] Work Phone: Start: 06-10-2023 End: 06-10-2023 ambulatory SEKOU TERRAZAS Not Available Start: 06-02-2023 Non-patient / Non-visit [facility] Physician [facility] Work Phone: Start: 09-24-2022 End: 09-24-2022 ambulatory EBENEZER Kline Work Phone: [facility] Work Phone: Start: 09-24-2022 End: 09-24-2022 Discharged Recurring EBENEZER Kline Work Phone: [facility] [address] Start: 05-27-2022 End: 05-28-2022 ambulatory DANIELA KLINE Facility:[facility] Start: 10-29-[address] NIYAH HERNANDEZ . Faci lity:[facility] Procedures Date Procedure Procedure Detail Performing Clinician Start: 03-22-2024 ALL THYROID STIM HORMONE Sekou Terrazas NP Work Phone: Start: 01-21-2024 End: 01-21-2024 Needle emg ea extremty w/paraspinl area complete Sekou Terrazas NP Work Phone: Plan of Treatment Date Care Activity Detail Author Start: 07-14-2024 End: 07-14-2024 Patient encounter procedure 07/14/2024 1:20 PM EDT Office Visit [facility] [address] [place] [address] Sekou Terrazas NP [address] [place] [address] [facility] Start: 03-22-2024 End: 03-22-2024 Patient encounter procedure [facility] [address] Start: 02-18-2024 End: 02-17-2025 Cobalamin (Vitamin B12) [Mass/volume] in Serum or Plasma Vitamin B12 Lab Routine Polyneuropathy Encounter for medication monitoring Expected: 02/18/2024 (Approximate), Expires: 02/17/2025 [facility] Comment on above: Expected: 02/18/2024 (Approximate), Expi res: 02/17/2025 Start: 02-18-2024 End: 02-17-2025 IMMUNOFIXATION,SERUM ([facility]) IMMUNOFIXATION,SERUM ([facility]) Lab Routine Polyneuropathy Expected: 02/18/2024 (Approximate), Expires: 02/17/2025 [facility] Comment on above: Expected: 02/18/2024 (Approximate), Expi res: 02/17/2025 Start: 02-18-2024 End: 02-17-2025 Methylmalonate [Moles/volume] in Serum or Plasma Methylmalonic acid, serum Lab Routine Polyneuropathy Encounter for medication monitoring Expected: 02/18/2024 (Approximate), Expires: 02/17/2025 [facility] Comment on above: Expected: 02/18/2024 (Approximate), Expi res: 02/17/2025 Start: 02-18-2024 End: 02-17-2025 Nuclear Ab [Titer] in Serum by Immunofluorescence [facility] Lab Routine Polyneuropathy Expected: 02/18/2024 (Approximate), Expires: 02/17/2025 [facility] Comment on above: Expected: 02/18/2024 (Approximate), Expi res: 02/17/2025 Start: 02-18-2024 End: 02-17-2025 Protein electrophoresis, serum Protein electrophoresis, serum Lab Routine Polyneuropathy Expected: 02/18/2024 (Approximate), Expires: 02/17/2025 [facility] Comment on above: Expected: 02/18/2024 (Approximate), Expi res: 02/17/2025 Start: 02-18-2024 End: 02-17-2025 Thyrotropin [Units/volume] in Serum or Plasma TSH Lab Routine Polyneuropathy Encounter for medication monitoring Expected: 02/18/2024 (Approximate), Expires: 02/17/2025 [facility] Work Phone: Comment on above: Expected: 02/18/2024 (Approximate), Expi res: 02/17/2025 Start: 02-18-2024 End: 02-18-2024 Patient encounter procedure [facility] [address] Comment on above: Arrived Start: 11-22-2023 Pneumococcal Vaccine: 65+ Years (1 of 1 - PCV) Pneumococcal Vaccine: 65+ Years (1 of 1 - PCV) [facility] Start: 10-18-2023 Influenza vaccination Influenza Vaccine (#1) [facility] Start: 07-09-2023 Patient referral [facility] Work Phone: Start: 1960 Screening for malignant neoplasm of colon [facility] Comprehensive metabo lic 2000 panel - Serum or Plasma [facility] Patient Education Diabetes and diet [facility] Work Phone: Patient referral [facility] Work Phone: [facility] Immunizations Immunization Date Immunization Notes Care Provider Bradley kishan 12-12-2020 influenza virus vaccine, unspecified formulation Baldo You Work Phone: [facility] Payers Date Payer Category Payer Medicare (Managed Care) [employer] [id number] 2024 Medicare [id number] 2024 Unknown 2024 Self-pay 2023 Medicaid [id number] 2023 Private Health Insurance [id number] 2022 Medicaid [id number] 1959 Unknown [id number] 1960 Unknown [id number]. 593 1960 Unknown [id number] [id number]. 593 1960 Unknown [id number] [id number]. 1259 1960 Unknown [id number] [id number]. 1259 1960 Unknown [id number] 2.16.840.1.869870.3.579.2. 1259 1960 Unknown [id number] [id number]. 1259 1960 Unknown [id number] 2.16.840.1.085902.3.579.2. 1259 1960 Unknown [id number] [id number]. 196 1960 Unknown [id number] [id number]. 196 1960 Unknown [id number] [id number]. 196 Private Health Insurance [facility] [id number] Unknown [id number]. 531 Social History Date Type Detail Facility Tobacco smoking stat [facility] Unknown if ever smoked [facility] Work Phone: Start: 1960 Sex Assigned At Male F [facility] Start: 06-10-2023 Tobacco smoking stat [facility] Ex-smoker [facility] History of tobacco use Current smoker [facility] Start: 06-10-2023 Tobacco use and exposure User of smokeless tobacco [facility] History of tobacco use Chews Tobacco [facility] Start: 08-10-2023 End: 03-22-2024 Alcoholic beverage intake Ex-drinker (finding) [facility] Start: 08-10-2023 End: 03-22-2024 History of Social function [facility] Start: 08-10-2023 End: 03-22-2024 Tobacco use panel [facility] Start: 06-10-2023 Tobacco Comment Quit smoking in 1976 [facility] Start: 06-10-2023 Alcohol Comment No caffeine intake [facility] Start: 1960 Sex assigned at Not on file [facility] Start: 02-18-2024 Alcohol Comment No alcohol use since 03/19/2019. No caffeine intake [facility] Clinical Notes 01-21-2024 to 03-24-2024 Telephone Encounter - Sekou Terrazas NP - 03/24/2024 3:20 PM ESTTelephone Encounter - Sekou Terrazas NP - 03/24/2024 3:20 PM ESTTelephone Encounter - Salma Girard MA - 03/24/2024 3:14 PM EST Note Date & Type Note Facility 03-24-2024 Telephone encount er Note Referral placed. Thank you! [facility] 03-24-2024 Miscellaneous Notes Formattin g of this note might be different from the original. Referral placed. Thank you! He would like a referral. I advised him if he did not get a call to schedule within 7-10 days to give our office a call. Called patient, no answer and VM was full. The patient's JOSÉ ANTONIO (lab) from 03/22/2024 was positive, and this suggests he could have an underlying autoimmune disease. I would like him to be evaluated by rheumatology for further evaluation of this. Can you please let him know? I will place the referral if he is agreeable. documented in this encounter [facility] 03-24-2024 Telephone encount er Note He would like a referral. I advised him if he did not get a call to schedule within 7-10 days to give our office a call. [facility] 03-24-2024 Telephone encount er Note Called patient, no answer and VM was full. [facility] 03-24-2024 Telephone encount er Note The patient's JOSÉ ANTONIO (lab) from 03/22/2024 was positive, and this suggests he could have an underlying autoimmune disease. I would like him to be evaluated by rheumatology for further evaluation of this. Can you please let him know? I will place the referral if he is agreeable. [facility] 03-22-2024 History of Presen t illness Narrative [...] He is following with pain management in [place], [place]. He states he was never contacted [...] nervous/anxious. Past Medical History: Diagnosis Date Asthma (CMS/HCC) Cervical radiculopathy COPD (chronic obstructive pulmonary disease) (CMS/[facility]) Diabetes mellitus (CMS/HCC) Gout History of degenerative disc disease Hypertension (CMS/HCC) Lumbosacral radiculopathy Memory changes Neuropathy Past Surgical [...] wrist extensors , wrist flexor , and top and trim worker strength 5/5. Limited range of motion in the right shoulder. LUE strength deltoid , biceps , triceps , wrist extensors , wrist flexor , and top and trim worker strength 5/5. RLE strength iliopsoas, quadriceps, tibialis [...] reflex 0. LLE knee reflex 0. Coordination: Kdrvgb-wo-zeux testing normal. Rapid alternating movements are normal. Gait: Appears mildly antalgic. Utilizing cane. Review and summary of old records: Labs on 03/22/2024: TSH 2.891. Other results are reportedly pending, as these were send out labs. MRI of the lumbar spine without contrast at [facility] on 01/25/2024: Significant multilevel degenerative [...] the spinal canal with moderate right and wluvijsw-uf-uerlbx left neural foraminal narrowing. At L5-S1, there [...] EMG of the bilateral lower extremities at [facility] on 01/21/2024: Bilateral chronic [...] polyneuropathy, without long-term current use of insulin ([facility]) The patient has polyneuropathy as [...] currently pending - Follow up closely with center specialists and primary care provider to help improve blood glucose management and prevent further nerve damage - Continue fall prevention measures Diagnosis and treatment options discussed in detail. All questions answered. The patient verbalizes understanding and is agreeable to the plan. Discussion in layman's terms. Follow up in the office within 4 months; sooner if needed for new or worsening symptoms. Sekou Terrazas NP [facility] documented in this encounter [facility] 03-22-2024 Instructions Sekou Terrazas NP - 03/22/2024 2:20 PM EST - Stop duloxetine documented in this encounter [facility] 02-18-2024 History of Presen t illness [...] He states his sciatica pain increased on Caridad Rosaline. He continues to have painful paresthesias [...] nervous/anxious. Past Medical History: Diagnosis Date Asthma (CMS/HCC) Cervical radiculopathy COPD (chronic obstructive pulmonary disease) (CMS/[facility]) Diabetes mellitus (CMS/HCC) Gout Hypertension (CMS/HCC) Lumbosacral [...] wrist extensors , wrist flexor , and top and trim worker strength 5/5. Limited range of motion in the right shoulder. LUE strength deltoid , biceps , triceps , wrist extensors , wrist flexor , and top and trim worker strength 5/5. RLE strength iliopsoas, quadriceps, tibialis [...] reflex 0. LLE knee reflex 0. Coordination: Djetsw-uc-adsv testing normal. Rapid alternating movements are normal. Gait: Appears antalgic. Utilizing cane. Review and summary of old records: MRI of the lumbar spine without contrast at [facility] on 01/25/2024: Significant multilevel degenerative [...] the spinal canal with moderate right and wrurimkz-my-ugepyo left neural foraminal narrowing. At L5-S1, there [...] EMG of the bilateral lower extremities at [facility] on 01/21/2024: Bilateral chronic [...] polyneuropathy, without long-term current use of insulin ([facility]) The patient has polyneuropathy as [...] of neuropathy - Follow up closely with center specialists and primary care provider to help improve [...] new or worsening symptoms. Sekou Terrazas NP [facility] documented in this encounter [facility] 02-18-2024 Instructions Sekou Terrazas NP - 02/18/2024 11:00 AM EST - Start duloxetine 30 mg by mouth once a day for chronic back pain - Referral to pain management and neurosurgery - Check labs to evaluate for causes of polyneuropathy documented in this encounter [facility] 01-21-2024 History of Presen t illness Narrative Images from the original note were not included. Reason for Appointment: EMG Patient: Tristin Jernigan : 1960 EMG Computer: [employer] Referring Physician: Sekou Terrazas CNP EMG: TRISHA knife grinder: Alfonso Martins RT(R) Office Location: [place] Reason for EMG: c/o numbness/tingling & cramping [...] of the test. documented in this encounter [facility] Chief complaint+Reason for visit Narrative Reason for Visit BMI 45.0-49.9, adult Dietary counseling and surveillance Hyperlipidemia Hypertension Type 2 diabetes mellitus with hyperglycemia [facility] Work Phone: Chief complaint+Reason for visit Narrative* Chief Complaint 3 month f/u / meter Reason for Visit BMI 45.0-49.9, adult Dietary counseling and surveillance Hyperlipidemia Hypertension Type 2 diabetes mellitus with hyperglycemia [facility] Work Phone: Evaluation noteNo assessment information available [facility] Work Phone: Evaluation note* Diagnosis Onset Date Resolution Status BMI 45.0-49.9, adult acute Dietary counseling and surveillance acute Hyperlipidemia acute Hypertension acute Type 2 diabetes mellitus with hyperglycemia acute [facility] Work Phone: Evaluation note* Diagnosis Type 2 diabetes mellitus with diabetic polyneuropathy, without long-term current use of insulin ([facility]) Paresthesia Disturbance of skin sensation documented in this encounter [facility]* Diagnosis Lumbosacral radiculopathy- Primary Thoracic [...] polyneuropathy, without long-term current use of insulin ([facility]) Encounter for medication monitoring Encounter for therapeutic drug monitoring documented in this encounter [facility]* Diagnosis Lumbosacral radiculopathy- Primary Thoracic [...] polyneuropathy, without long-term current use of insulin ([facility]) documented in this encounter [facility]* Diagnosis Positive JOSÉ ANTONIO (antinuclear antibody)- Primary Other and unspecified nonspecific immunological findings [facility] Dis[facility] instructionsAmbulatory Orders* Referral to Diabetes Education Location: None Selected * Referral to Gas Dispenser Location: None Selected [facility] Work Phone: Summary Purpose Family History [...] and content) DATE CREATED AUTHOR 06/01/2022 [facility] DATE CREATED AUTHOR AUTHOR'S ORGANIZ ATION 01/31/2024 [facility] DATE CREATED AUTHOR AUTHOR'S ORGANIZ ATION 03/24/2024 [facility] EPIC DATE CREATED AUTHOR AUTHOR'S ORGANIZ ATION 05/04/2024 [facility] Care Teams (unrecognized sec tion and [...] October 13, 2023 End: October 13, 2023 Multiskill Operator Relationship Specialty Start Date End Date Baldo You DO [address] [address] Referring Physician Neurology 02/18/24 Multiskill Operator Relationship Specialty Start Date End Date Baldo You DO [address] [address] Referring Physician Neurology 02/18/24 Multiskill Operator Relationship Specialty Start Date End Date Baldo You DO [address] [address] Referring Physician Neurology 02/18/24 Multiskill Operator Relationship Specialty Start Date End Date Baldo You DO [address] [address] Referring Physician Neurology 02/18/24 Multiskill Operator Relationship Specialty Start Date End Date Baldo You DO [address] [address] Referring Physician Neurology 02/18/24 Goals (unrecognized section [...] BE BASED ON THE PRIMARY CLINICAL RECORDS. [facility]. provides no warranty or guarantee of the accuracy or completeness of information in this document.
--- NOTE | 2024-05-05 11:21 | PM.CN ---
Consult Note: HPI Data of Consult Patient: known to practice within the last 3 years Requesting Physician: Karena Raymundo NP Primary Care Provider: Non-Staff Physician, MD Consult Narrative Reason for consult: f/u Narrative: Tristin Jernigan a 63 year old male presents for evaluation of chronic back and SIJ pain. pt has longstanding hx of back pain and BLE pain with standing, walking, bending, stairs, lifting. unfortunately his UDS came back positive for cocaine, methamphetamines, amphetamines, and marijuana which has resulted in NNCP. furthermore id recommend an injection only care plan and addiction medicine consultation which pt refused. he continues to look for PCP coverage but has not been able establish with any providers locally. pt has failed to benefit from 6 weeks of provider guided HEP/PT, heat, ice, tylenol and NSAIDs. Pt recently underwent bilateral SIJ injection with >50% improvement ongoing. cc:: CC: Karena Raymundo NP Review of Systems ROS Status of ROS 10 or more systems reviewed and unremarkable except as noted in history and below Musculoskeletal Reports: back pain and joint pain PFSH [facility] Medical History (Updated 03/07/24 @ 14:08 by Kylie Jefferson RN) Rupture of bowel ?K63.1 - Perforation of intestine (nontraumatic) (ICD-10) Diabetes ?E11.9 - Type 2 diabetes mellitus without complications (ICD-10) Asthma ?J45.909 - Unspecified asthma, uncomplicated (ICD-10) HTN (hypertension) ?I10 - Essential (primary) hypertension (ICD-10) Surgical History History of resection of large bowel ?Z90.49 - Acquired absence of other specified parts of digestive tract (ICD-10) History of colostomy reversal ?Z98.890 - Other specified postprocedural states (ICD-10) History of ear surgery ?Z98.890 - Other specified postprocedural states (ICD-10) History of surgery on arm ?Z98.890 - Other specified postprocedural states (ICD-10) History of knee surgery ?Z98.890 - Other specified postprocedural states (ICD-10) Social History Smoking status: Former smoker Little interest or pleasure in doing things: not at all Feeling down, depressed, or hopeless: not at all Meds Home Medications and Allergies Home Medications ?Medication ?Instructions ?Recorded ?Confirmed ?Type lisinopril 10 mg tablet 10 mg PO DAILY 09/12/22 04/25/24 History oxybutynin chloride 15 mg 15 mg PO DAILY 09/12/22 04/25/24 History tablet,extended release 24 hr hydrocodone 5 mg-acetaminophen 325 1 tab PO BID PRN pain #28 tabs 03/07/24 03/14/24 Rx mg tablet empagliflozin 25 mg tablet 25 mg PO DAILY 04/25/24 04/25/24 History (Jardiance) empagliflozin 25 mg tablet mg 04/25/24 History (Jardiance) Allergies Allergy/AdvReac Type Severity Reaction Status Date / Time No Known Drug Allergies Allergy Verified 04/25/24 09:22 Exam Constitutional Documenting provider has reviewed patient's vital signs: yes Common normals: no apparent distress, oriented x3, healthy appearing, alert and well nourished General appearance: cooperative HENMT Common normals: normocephalic, hearing grossly normal bilaterally and moist oral mucous membranes Head and scalp: normocephalic Eye Common normals: PERRL Pupil: PERRL Neck & C-Spine Common normals: full ROM General: normal visual inspection Chest Common normals: inspection of chest normal Respiratory Common normals: normal respiratory effort, no retractions and no use of accessory muscles Back & Pelvis Lumbar spine/lower back: ROM limited, pain with ROM and straight leg raise negative bilaterally Sacroiliac joints: SI joints normal Other: bilaterally negative sij nasir(patricks), gaenslens, thigh thrust, compression test strength 4/5 in BLE sensation intact BLE positive facet loading and increased pain at L4-S1 Neuro Common normals: oriented x3, CN's II-XII intact bilaterally, moves all extremities, no focal motor deficits, no sensory deficits noted and deep tendon reflexes 2+ bilaterally Sensorium/orientation: alert Motor exam: strength 5/5 throughout and no movement abnormalities noted Psych Common normals: mental status grossly normal, thought process normal, cooperative, affect normal, speech normal and activity/motor behavior normal Speech: normal speech Thought process: normal thought process Results Additional Findings Additional findings: If on a controlled substance or opioids, I have checked an [place] report on this patient and there are no aberrancies noted in the prescribing history.??If on a controlled substance or opioid a drug screen was completed and reviewed within the last year, and if there has not been a drug screen completed we ordered one today to monitor higher risk, state monitored pain medication use. As part of providing excellent, safe, comprehensive care, the following was completed at our patient's visit: 1. A medication reconciliation and review to ensure accurate knowledge of current/active medications, including asking our patients to inform us about any kfbm-mwy-rogwueq medications or herbal remedies/nutritional supplements/alternative remedies. 2. A review to specifically ensure our patients have had annual screening for screening for depression, screening for tobacco use, and screening for unhealthy alcohol use. For concerning screenings had a discussion with the patient, provided patient education, and recommended follow-up with primary care provider when appropriate. If patient noted with a risk of falling, they received education on strength, gait, and balance training to prevent future risk of falling. Portions of this note may have been carried over from the previous visit and updated as appropriate. Please note this office utilizes paper charting in addition to the electronic medical record. A list of current medications, vitals, and PMH is available there as the clinical staff outside of myself do not have access to [employer] charting during the clinic day operations. As part of providing quality comprehensive care the current medications, vitals, and PMH were reviewed in the paper chart. Assessment and Plan Assessment and Plan (1) Lumbar stenosis with neurogenic claudication: (2) Sacroiliac joint dysfunction of both sides: (3) Lumbar spondylosis: Plan continue HEP as tolerated encouraged pt to establish with PCP defer bilateral L4-5 L5-S1 MBB x2 working towards RFA until pt is established with PCP. f/u PRN
== END 2024-05-05 11:03 | disposition home or self-care (01) ==
PROVIDERS: Visit Provider Nurse Practitioner
DX: M48.062 Spinal stenosis, lumbar region with neurogenic claudication (principal); M53.3 Sacrococcygeal disorders, not elsewhere classified; M47.816 Spondylosis without myelopathy or radiculopathy, lumbar region
CPT/HCPCS: G0463

== ENCOUNTER 2024-06-02 18:15 | Emergency (ER) | payer MEDICARE, MEDICAID, SELFPAY ==
[2024-06-02 18:19] VITALS: PULSE 112; TEMP 37.3; O2SAT 96; BMI 43.3
--- OUTSIDE RECORDS SUMMARY | 2024-06-02 18:23 | XMS_ITS | CCD ---
Demographics Address [address] [place] [address] Preferred Language en Marital Status Single Congregation Affiliation Unknown Race White Ethnic Group Not or Lati no Author Organization [facility] Care Team Providers Care Dietetic Technician Registered Name Role Phone MARY Mosher, DR NIYAH [...] mouth twice daily as needed HYDROcodone-acetam inophen ([place]) 5-325 MG tablet Take 1 tablet by mouth 2 (two) times a day as needed 03/07/2024 Active [id number] 200 actuat albuterol 0.09 mg/actuat metered dose [...] bedtime. Active Blood-Glucose Meter,Continuous (Freestyle Jeromy 3 [place]) misc (2 sources) Start: 10-12-2023 Blood-Glucose Meter,Continuous (Freestyle Jeromy 3 [place]) misc Active 0 .ROUTE .MEDSUPPLY 1 October [...] puff(s) by inhalation every eight hours Ipratropium [place] (Atrovent Hfa) 17 mcg/actuation HFA aerosol inhaler [...] HORMONEon 0 03-22-2024 TSH Qn 2.891 m[IU]/L [facility] XR pre/post mri xrayon 01-24 XR pre/post mri xray [facility] [place] [address] MRI Report Signed Patient: Tristin Jernigan MR#: [id number] : 1960 Acct:[id number] Age/Sex: 63 / M ADM Date: 01/25/24 Loc: [facility] Room: Type: [facility] Attending Dr: Seoku GREEN Copies to: NORMA Villagomez Ordering Provider: NORMA Villagomez Date of Service: 01/25/24 MR/MR lumbar spine wo con: [id number] ([id number]) XR/XR pre/post mri xray: LUMBAR MRI MR [...] Daniel Hobson M.D.01/25/2024 3:38 PM Dictation Location: [facility]- Transcribed By: CAN 01/25/24 1538 Dictated By: Jose Daniel Hobson II, MD 01/25/24 1528 Signed By: 01/25/24 1538 Normal [facility] EMG 2 Extremitieson 01-21-20 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 [facility] EMG 2 ExtremitiesOrdered By: Baldo You on 01-21-2024 [facility] Work Phone: [facility] 9-10 Nerveson 01-21-2024 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 Replaced by [facility] US SINGLE QUAD RT UPPERon US SINGLE [...] by: HUA HUERTA Date: 2022-05-27 15:43 Normal [facility] Vital Signs Date Time Vital Sign Value Performing Clinician Facility 03-22-2024 14:27-0500 Body mass index (BMI) [Ratio] 39.84 kg/m2 Sekou Terrazas DATA ENTRY MACHINE OPERATOR Work Phone: [facility] 03-22-2024 14:27-0500 Body weight 118.84 kg Sekou Terrazas DATA ENTRY MACHINE OPERATOR Work Phone: [facility] 03-22-2024 14:27-0500 Diastolic blood pressure 80 mm[Hg] Sekou Terrazas DATA ENTRY MACHINE OPERATOR Work Phone: [facility] 03-22-2024 14:27-0500 Heart rate 80 /min Sekou Terrazas DATA ENTRY MACHINE OPERATOR Work Phone: [facility] 03-22-2024 14:27-0500 SaO2% (BldA) [Mass fraction] 95 % Sekou Terrazas DATA ENTRY MACHINE OPERATOR Work Phone: [facility] 03-22-2024 14:27-0500 Systolic blood pressure 142 mm[Hg] Sekou Terrazas DATA ENTRY MACHINE OPERATOR Work Phone: [facility] 02-18-2024 10:56-0500 Body height 172.7 cm Sekou Terrazas DATA ENTRY MACHINE OPERATOR Work Phone: [facility] 02-18-2024 10:56-0500 Body mass index (BMI) [Ratio] 39.84 kg/m2 Sekou Terrazas DATA ENTRY MACHINE OPERATOR Work Phone: [facility] 02-18-2024 10:56-0500 Body weight 118.84 kg Sekou Terrazas DATA ENTRY MACHINE OPERATOR Work Phone: [facility] 02-18-2024 10:56-0500 Diastolic blood pressure 80 mm[Hg] Sekou Terrazas DATA ENTRY MACHINE OPERATOR Work Phone: [facility] 02-18-2024 10:56-0500 Heart rate 96 /min Sekou Terrazas DATA ENTRY MACHINE OPERATOR Work Phone: [facility] 02-18-2024 10:56-0500 SaO2% (BldA) [Mass fraction] 97 % Sekou Terrazas DATA ENTRY MACHINE OPERATOR Work Phone: [facility] 02-18-2024 10:56-0500 Systolic blood pressure 142 mm[Hg] Sekou Terrazas DATA ENTRY MACHINE OPERATOR Work Phone: [facility] 10-12-2023 10:22-0400 Diastolic blood pressure 86 mm[Hg] [facility] 10-12-2023 10:22-0400 Systolic blood pressure 135 mm[Hg] [facility] 10-12-2023 10:20-0400 Body height 162.56 cm [facility] 10-12-2023 10:20-0400 Body mass index (BMI) [Ratio] 46.2 kg/m2 [facility] 10-12-2023 10:20-0400 Body weight 122.21 kg [facility] 10-12-2023 10:20-0400 Heart rate 90 /min [facility] 10-12-2023 10:20-0400 Respiratory rate 18 /min [facility] 10-12-2023 10:20-0400 SaO2% (BldA) [Mass fraction] 94 % [facility] 07-09-2023 15:12-0400 Body height 162.56 cm [facility] 07-09-2023 15:12-0400 Body mass index (BMI) [Ratio] 48.9 kg/m2 [facility] 07-09-2023 15:12-0400 Body weight 129.27 kg [facility] 07-09-2023 15:12-0400 Diastolic blood pressure 100 mm[Hg] [facility] 07-09-2023 15:12-0400 Heart rate 87 /min [facility] 07-09-2023 15:12-0400 Respiratory rate 18 /min [facility] 07-09-2023 15:12-0400 SaO2% (BldA) [Mass fraction] 95 % [facility] 07-09-2023 15:12-0400 Systolic blood pressure 174 mm[Hg] [facility] Encounters Encounter Date Encounter Type Care Provider Facility Start: 04-25-2024 End: 04-25-2024 ambulatory Radha Benítez MD Facility:[facility] Start: 03-24-2024 End: 03-24-2024 Telephone encounter Sekou Terrazas NP Work Phone: [facility] Start: 03-22-2024 End: 03-22-2024 ambulatory SEKOU TERRAZAS Not Available Start: 03-22-2024 End: 03-22-2024 Office outpatient visit 25 minutes Sekou Terrazas NP Work Phone: [facility] Comment on above: Lumbosacral radiculo syed (Primary Dx); Degeneration of intervertebral disc of lumbar region with discogenic back pain and lower extremity pain; DDD (degenerative disc disease), cervical; Chronic right shoulder pain; Polyneuropathy; Type 2 diabetes mellitus with diabetic polyneuropathy, without long-term current use of insulin ([facility]) Start: 03-22-2024 End: 03-22-2024 Clinisync Result Encounter Sekou Nini DATA ENTRY MACHINE OPERATOR Work Phone: [employer] External Department Unsolicited Start: 03-22-2024 End: 03-22-2024 Clinisync Result Encounter Sekou Wadswortholl DATA ENTRY MACHINE OPERATOR Work Phone: [employer] External Department Unsolicited Start: 03-14-2024 End: 03-14-2024 ambulatory Radha Benítez MD Facility: [place] Start: 03-07-2024 End: 03-07-2024 ambulatory Radha Benítez MD Facility: [place] Start: 02-18-2024 End: 02-18-2024 Bamboo flowsheet Sekou Terrazas DATA ENTRY MACHINE OPERATOR Work Phone: [facility] Start: 02-18-2024 End: 02-18-2024 Bamboo flowsheet Sekou Nini DATA ENTRY MACHINE OPERATOR Work Phone: [facility] Start: 02-18-2024 End: 02-18-2024 Office outpatient visit 25 minutes Sekou Nini DATA ENTRY MACHINE OPERATOR Work Phone: [facility] Comment on above: Lumbosacral radiculo syed (Primary Dx); Degeneration of intervertebral disc of lumbar region with discogenic back pain and lower extremity pain; DDD (degenerative disc disease), cervical; Chronic right shoulder pain; Polyneuropathy; Type 2 diabetes mellitus with diabetic polyneuropathy, without long-term current use of insulin ([facility]); Encounter for medication monitoring Start: 02-18-2024 End: 02-18-2024 ambulatory SEKOU NINI Not Available Start: 01-25-2024 End: 01-25-2024 ambulatory Sekou Terrazas Facility:[facility] Start: 01-21-2024 End: 01-21-2024 Bamboo flowsheet Baldo You DO [facility]: [facility] Start: 01-21-2024 End: 01-21-2024 Lmboo flowsheet Baldo You DO Work Phone: [facility] Start: 01-21-2024 End: 01-21-2024 ambulatory BALDO YOU Not Available Start: 01-21-2024 End: 01-21-2024 Patient encounter procedure Baldo You DO Work Phone: [facility] Comment on above: Type 2 diabetes ashtyn itus with diabetic polyneuropathy, without long-term current use of insulin ([facility]); Paresthesia Start: 10-13-2023 End: 10-13-2023 ambulatory [facility] Work Phone: Start: 10-13-2023 End: 10-13-2023 Patient encounter procedure [facility] Physician [facility] Work Phone: Start: 10-12-2023 End: 10-12-2023 ambulatory [facility] Work Phone: Start: 10-12-2023 End: 10-12-2023 Patient encounter procedure [facility] Physician [facility] Work Phone: Start: 08-10-2023 End: 08-10-2023 ambulatory SEKOU TERRAZAS Not Available Start: 07-09-2023 End: 07-09-2023 ambulatory [facility] Work Phone: Start: 07-09-2023 End: 07-09-2023 Patient encounter procedure [facility] Physician [facility] Work Phone: Start: 06-10-2023 End: 06-10-2023 ambulatory SEKOU TERRAZAS Not Available Start: 06-02-2023 Non-patient / Non-visit [facility] Physician [facility] Work Phone: Start: 09-24-2022 End: 09-24-2022 ambulatory EBENEZER Kline Work Phone: [facility] Work Phone: Start: 09-24-2022 End: 09-24-2022 Discharged Recurring EBENEZER Kline Work Phone: [facility] [address] Start: 05-27-2022 End: [...] ANTONIO KING [address] [place] [address] Sekou Terrazas NP [address] [place] [address] [facility] Start: 03-22-2024 End: 03-22-2024 Patient encounter procedure [facility] [address] Start: 02-18-2024 End: 02-17-2025 Cobalamin (Vitamin B12) [Mass/volume] in Serum or Plasma Vitamin B12 Lab Routine Polyneuropathy Encounter for medication monitoring Expected: 02/18/2024 (Approximate), Expires: 02/17/2025 [facility] Comment on above: Expected: 02/18/2024 (Approximate), Expi res: 02/17/2025 Start: 02-18-2024 End: 02-17-2025 IMMUNOFIXATION,SERUM [place] IMMUNOFIXATION,SERUM ([facility] Lab Routine Polyneuropathy Expected: 02/18/2024 (Approximate), Expires: 02/17/2025 [facility] Comment on above: Expected: 02/18/2024 (Approximate), Expi res: 02/17/2025 Start: 02-18-2024 End: 02-17-2025 Methylmalonate [Moles/volume] in Serum or Plasma Methylmalonic acid, serum Lab Routine Polyneuropathy Encounter for medication monitoring Expected: 02/18/2024 (Approximate), Expires: 02/17/2025 [facility] Comment on above: Expected: 02/18/2024 (Approximate), Expi res: 02/17/2025 Start: 02-18-2024 End: 02-17-2025 Nuclear Ab [Titer] in Serum by Immunofluorescence JOSÉ ANTONIO Lab Routine Polyneuropathy Expected: 02/18/2024 (Approximate), Expires: 02/17/2025 [facility] Comment on above: Expected: 02/18/2024 (Approximate), Expi res: 02/17/2025 Start: 02-18-2024 End: 02-17-2025 Protein electrophoresis, serum Protein electrophoresis, serum Lab Routine Polyneuropathy Expected: 02/18/2024 (Approximate), Expires: 02/17/2025 [facility] Comment on above: Expected: 02/18/2024 (Approximate), Expi res: 02/17/2025 Start: 02-18-2024 End: 02-17-2025 Thyrotropin [Units/volume] in Serum or Plasma TSH Lab Routine Polyneuropathy Encounter for medication monitoring Expected: 02/18/2024 (Approximate), Expires: 02/17/2025 [facility] Work Phone: Comment on above: Expected: 02/18/2024 (Approximate), Expi res: 02/17/2025 Start: 02-18-2024 End: 02-18-2024 Patient encounter procedure [facility] [address] Comment on above: Arrived Start: 11-22-2023 Pneumococcal Vaccine: 65+ Years (1 of 1 - PCV) Pneumococcal Vaccine: 65+ Years (1 of 1 - PCV) [facility] Start: 10-18-2023 Influenza vaccination Influenza Vaccine (#1) [facility] Start: 07-09-2023 Patient referral [facility] Work Phone: Start: 1960 Screening for malignant neoplasm of colon [facility] Comprehensive metabo lic 2000 panel - Serum or Plasma [facility] Patient Education Diabetes and diet [facility] Work Phone: Patient referral [facility] Work Phone: [facility] Immunizations Immunization Date Immunization Notes Care Provider Bradley holley 12-12-2020 influenza virus vaccine, unspecified formulation Baldo You Work Phone: [facility] Payers Date Payer Category Payer Private Health Insurance 2024 Medicare (Managed Care) [employer] [id number] 2024 Medicare [id number] 2024 Unknown 2024 Self-pay 2023 Medicaid [id number] 2023 Private Health Insurance [id number] 2022 Medicaid [id number] 1959 Unknown [id number] 1960 Unknown [id number]. 593 1960 Unknown [id number] [id number]. 593 1960 Unknown [id number] [id number]. 1259 1960 Unknown [id number] [id number]. 1259 1960 Unknown [id number] [id number]. 1259 1960 Unknown [id number] [id number]. 1259 1960 Unknown [id number] [id number]. 1259 1960 Unknown [id number] [id number]. 196 1960 Unknown [id number] [id number]. 196 1960 Unknown [id number] [id number]. 196 Private Health Insurance [facility] [id number] Unknown [id number] 531 Social History Date Type Detail Facility Tobacco smoking stat [facility] Unknown if ever smoked [facility] Work Phone: Start: 1960 Sex Assigned At Male [facility] Start: 06-10-2023 Tobacco smoking stat [facility] Ex-smoker [facility] History of tobacco use Current smoker [facility] Start: 06-10-2023 Tobacco use and exposure User of smokeless tobacco [facility] History of tobacco use Chews Tobacco [facility] Start: 08-10-2023 End: 03-22-2024 Alcoholic beverage intake Ex-drinker (finding) [facility] Start: 08-10-2023 End: 03-22-2024 History of Social function [facility] Start: 08-10-2023 End: 03-22-2024 Tobacco use panel [facility] Start: 06-10-2023 Tobacco Comment Quit smoking in 1976 [facility] Start: 06-10-2023 Alcohol Comment No caffeine intake [facility] Start: 1960 Sex assigned at Not on file [facility] Start: 02-18-2024 Alcohol Comment No alcohol use since 03/19/2019. No caffeine intake [facility] Clinical Notes 12-05-2024 to 03-24-2024 Telephone Encounter - Sekou Terrazas NP - 03/24/2024 3:20 PM ESTTelephone Encounter - Sekou Terrazas NP - 03/24/2024 3:20 PM ESTTelephone Encounter - Salma Girard MA - 03/24/2024 3:14 PM EST Note Date & Type Note Facility 03-24-2024 Telephone encount er Note Referral placed. Thank you! [facility] 03-24-2024 Miscellaneous Notes Formattin g of this [...] he is agreeable. documented in this encounter [facility] 03-24-2024 Telephone encount er Note He would like a referral. I advised him if he did not get a call to schedule within 7-10 days to give our office a call. [facility] 03-24-2024 Telephone encount er Note Called patient, no answer and VM was full. [email or web address] 03-24-2024 Telephone encount er Note The patient's JOSÉ ANTONIO (lab) from 03/22/2024 was positive, and this suggests he could have an underlying autoimmune disease. I would like him to be evaluated by rheumatology for further evaluation of this. Can you please let him know? I will place the referral if he is agreeable. [email or web address] 03-22-2024 History of Presen t illness Narrative [...] He is following with pain management in [place], [place]. He states he was never contacted [...] Cervical radiculopathy COPD (chronic obstructive pulmonary disease) ([facility]) Diabetes mellitus (CMS/HCC) Gout History of degenerative disc disease Hypertension ([facility]) Lumbosacral radiculopathy Memory changes Neuropathy Past Surgical [...] wrist extensors , wrist flexor , and plugger man strength 5/5. Limited range of motion in the right shoulder. LUE strength deltoid , biceps , triceps , wrist extensors , wrist flexor , and plugger man strength 5/5. RLE strength iliopsoas, quadriceps, tibialis [...] reflex 0. LLE knee reflex 0. Coordination: Zvkzuo-ut-ldji testing normal. Rapid alternating movements are normal. Gait: Appears mildly antalgic. Utilizing cane. Review and summary of old records: Labs on 03/22/2024: TSH 2.891. Other results are reportedly pending, as these were send out labs. MRI of the lumbar spine without contrast at [facility] on 01/25/2024: Significant multilevel degenerative changes contributing [...] the spinal canal with moderate right and gmkqoiyk-qp-cierzc left neural foraminal narrowing. At L5-S1, there [...] EMG of the bilateral lower extremities at [facility] on 01/21/2024: Bilateral [...] polyneuropathy, without long-term current use of insulin ([facility]) The patient has polyneuropathy as identified on [...] currently pending - Follow up closely with skin care specialist and primary care provider to help [...] new or worsening symptoms. Sekou Terrazas NP [facility] documented in this encounter [facility] 03-22-2024 Instructions Sekou Terrazas NP - 03/22/2024 2:20 PM EST - Stop duloxetine documented in this encounter [facility] 02-18-2024 History of Presen t illness Narrative [...] He states his sciatica pain increased on [place]. He continues to have painful paresthesias [...] wrist extensors , wrist flexor , and plugger man strength 5/5. Limited range of motion in the right shoulder. LUE strength deltoid , biceps , triceps , wrist extensors , wrist flexor , and plugger man strength 5/5. RLE strength iliopsoas, quadriceps, tibialis [...] reflex 0. LLE knee reflex 0. Coordination: Eeykrc-wo-wnsh testing normal. Rapid alternating movements are normal. Gait: Appears antalgic. Utilizing cane. Review and summary of old records: MRI of the lumbar spine without contrast at [facility] on 01/25/2024: Significant multilevel degenerative changes contributing [...] the spinal canal with moderate right and vpiosvir-gc-rfmmyw left neural foraminal narrowing. At L5-S1, there [...] EMG of the bilateral lower extremities at [facility] on 01/21/2024: Bilateral [...] polyneuropathy, without long-term current use of insulin ([facility]) The patient has polyneuropathy as identified on [...] of neuropathy - Follow up closely with skin care specialist and primary care provider to help [...] new or worsening symptoms. Sekou Terrazas NP [facility] documented in this encounter [facility] 02-18-2024 Instructions Sekou Terrazas NP - 02/18/2024 11:00 AM EST - Start duloxetine 30 mg by mouth once a day for chronic back pain - Referral to pain management and neurosurgery - Check labs to evaluate for causes of polyneuropathy documented in this encounter [facility] 01-21-2024 History of Presen t illness Narrative Images from the original note were not included. Reason for Appointment: EMG Patient: Tristin Jernigan : 1960 EMG Computer: [employer] Referring Physician: Sekou Terrazas SERVOMECHANISM DESIGNER EMG: TRISHA brokerage office manager: Alfonso Martins RT(R) Office Location: [place] Reason for EMG: c/o numbness/tingling & cramping [...] [facility] Chief complaint+Reason for visit Narrative Reason for Visit BMI 45.0-49.9, adult Dietary counseling and surveillance Hyperlipidemia Hypertension Type 2 diabetes mellitus with hyperglycemia [facility] Work Phone: Chief complaint+Reason for visit Narrative* Chief Complaint 3 month f/u / meter Reason for Visit BMI 45.0-49.9, adult Dietary counseling and surveillance Hyperlipidemia Hypertension Type 2 diabetes mellitus with hyperglycemia [facility] Work Phone: Evaluation noteNo assessment information available [facility] Work Phone: Evaluation note* Diagnosis Onset Date Resolution Status BMI 45.0-49.9, adult acute Dietary counseling and surveillance acute Hyperlipidemia acute Hypertension acute Type 2 diabetes mellitus with hyperglycemia acute [facility] Work Phone: Evaluation note* Diagnosis Type 2 diabetes mellitus with diabetic polyneuropathy, without long-term current use of insulin ([facility]) Paresthesia Disturbance of skin sensation documented in this encounter [facility] HealthcareEvaluation note* Diagnosis Lumbosacral radiculopathy- Primary Thoracic [...] polyneuropathy, without long-term current use of insulin ([facility]) Encounter for medication monitoring Encounter for therapeutic drug monitoring documented in this encounter [facility] HealthcareEvaluation note* Diagnosis Lumbosacral radiculopathy- Primary Thoracic [...] polyneuropathy, without long-term current use of insulin ([facility]) documented in this encounter [facility] HealthcareEvaluation note* Diagnosis Positive JOSÉ ANTONIO (antinuclear antibody)- Primary Other and unspecified nonspecific immunological findings [facility] Dis[facility] instructionsAmbulatory Orders* Referral to Diabetes Education Location: None Selected * Referral to [employer] Location: None Selected [facility] Work Phone: Summary Purpose Family History [...] and content) DATE CREATED AUTHOR [facility]01/2022 [facility] DATE CREATED AUTHOR AUTHOR'S ORGANIZ ATION 01/31/2024 [facility] DATE CREATED AUTHOR AUTHOR'S ORGANIZ ATION 03/24/2024 [facility] Specialists EPIC DATE CREATED AUTHOR AUTHOR'S ORGANIZ ATION 05/17/2024 [facility] Care Teams (unrecognized sec tion [...] October 13, 2023 End: October 13, 2023 Dietetic Technician Registered Relationship Specialty Start Date End Date Baldo You DO [address] [address] Referring Physician Neurology 02/18/24 Dietetic Technician Registered Relationship Specialty Start Date End Date Baldo You DO [address] [address] Referring Physician Neurology 02/18/24 Dietetic Technician Registered Relationship Specialty Start Date End Date Baldo You DO [address] [address] Referring Physician Neurology 02/18/24 Dietetic Technician Registered Relationship Specialty Start Date End Date Baldo You DO [address] [address] Referring Physician Neurology 02/18/24 Dietetic Technician Registered Relationship Specialty Start Date End Date Baldo You DO [address] [address] Referring Physician Neurology 02/18/24 Goals (unrecognized section [...] BE BASED ON THE PRIMARY CLINICAL RECORDS. [employer] provides no warranty or guarantee of the accuracy or completeness of information in this document.
[2024-06-02] MEDS: LIDOCAINE HCL 1% 100 MG/10 ML MDV INJ (18:35)
--- NOTE | 2024-06-02 18:35 | ED.GENADUL1 ---
HPI HPI - General Adult General Chief complaint: Wound/Laceration Stated complaint: UE INJURY Time Seen by Provider: 06/02/24 18:19 Source: patient Mode of arrival: walk-in Limitations: no limitations History of Present Illness HPI narrative: 63-year-old male presents here with a chief complaint of a fishing lower to the left ring finger across the distal fat pad. Patient attempted to remove it at home without success. Not up-to-date on tetanus immunization. He injury occurred just prior to arrival. Related Data Home Medications ?Medication ?Instructions ?Recorded ?Confirmed lisinopril 10 mg tablet 10 mg PO DAILY 09/12/22 04/25/24 oxybutynin chloride 15 mg 15 mg PO DAILY 09/12/22 04/25/24 tablet,extended release 24 hr empagliflozin 25 mg tablet 25 mg PO DAILY 04/25/24 04/25/24 (Jardiance) empagliflozin 25 mg tablet mg 04/25/24 (Jardiance) Previous Rx's ?Medication ?Instructions ?Recorded hydrocodone 5 mg-acetaminophen 325 1 tab PO BID PRN pain #28 tabs 03/07/24 mg tablet cephalexin 500 mg capsule 500 mg PO BID 10 days #20 caps 06/02/24 Allergies Allergy/AdvReac Type Severity Reaction Status Date / Time No Known Drug Allergies Allergy Verified 04/25/24 09:22 Opioid HPI Opioid Management Most Recent Opioid Data: Last Pain Scale 9 04/25/24 09:19 04/25/24 Ur Phencyclidine Scrn Negative (NEGATIVE) 06/11/23 10:40 06/11/23 Review of Systems ROS Narrative All Systems are negative except as noted/marked.All systems reviewed and otherwise negative [facility] Medical History (Updated 06/02/24 @ 18:34 by Kelly Godoy) Rupture of bowel ?K63.1 - Perforation of intestine (nontraumatic) (ICD-10) Diabetes ?E11.9 - Type 2 diabetes mellitus without complications (ICD-10) Asthma ?J45.909 - Unspecified asthma, uncomplicated (ICD-10) HTN (hypertension) ?I10 - Essential (primary) hypertension (ICD-10) Surgical History History of resection of large bowel ?Z90.49 - Acquired absence of other specified parts of digestive tract (ICD-10) History of colostomy reversal ?Z98.890 - Other specified postprocedural states (ICD-10) History of ear surgery ?Z98.890 - Other specified postprocedural states (ICD-10) History of surgery on arm ?Z98.890 - Other specified postprocedural states (ICD-10) History of knee surgery ?Z98.890 - Other specified postprocedural states (ICD-10) Social History Smoking status: Former smoker Little interest or pleasure in doing things: not at all Feeling down, depressed, or hopeless: not at all Exam Narrative Exam Narrative: Nurses note and vital signs reviewed and patient is not hypoxic. General: The patient appears well and in no apparent distress. Patient is resting comfortably on cart. Skin: Warm, dry, no pallor noted. There is no rash noted. Head: Normocephalic, atraumatic Eye: Normal conjunctiva, no drainage, EOMI. PERRL Ears, Nose, Mouth, and Throat: oral mucosa is moist. Nares patent. Mouth without vesicles. Ear canals patent. Tm's without Erythema Cardiovascular: Regular Rate and Rhythm Musculoskeletal: fishing lure embedded in the distal fat pad of left ring finger, remainder of extremities within normal limits Neurological: A&O x4, normal speech Psychiatric: Cooperative Constitutional Vital Signs, click to edit/add: Last Vital Signs Temp 99.1 F 06/02/24 18:19 Pulse 112 H 06/02/24 18:19 Resp 20 06/02/24 18:19 Pulse Ox 96 06/02/24 18:19 O2 Del Method Room Air 06/02/24 18:19 Course Vital Signs Vital signs: Vital Signs Temperature 99.1 F 06/02/24 18:19 Pulse Rate 112 H 06/02/24 18:19 Respiratory Rate 20 06/02/24 18:19 Pulse Oximetry 96 06/02/24 18:19 Oxygen Delivery Method Room Air 06/02/24 18:19 Temperature 99.1 F 06/02/24 18:19 Pulse Rate 112 H 06/02/24 18:19 Respiratory Rate 20 06/02/24 18:19 Pulse Oximetry 96 06/02/24 18:19 Oxygen Delivery Method Room Air 06/02/24 18:19 Medical Decision Making MDM Narrative Medical decision making narrative: With a fishing lure stuck in the left ring finger distal fat pad. Area was anesthetized 1% lidocaine solution locally. Ring cutters were used to cut the lower lure prong, immediately let loose when I was cutting other pieces of the fishing lower. It remained intact. Finger was then soaked in Hibiclens normal saline. Patient be discharged home after being updated on tetanus immunization and given a prescription for Keflex. Patient will follow-up primary care physician. Differential Diagnosis Differential Diagnosis: Puncture wound, foreign body Medical Records Medical records reviewed: Yes I reviewed the patient's medical records Discharge Plan Discharge Chief Complaint: Wound/Laceration Clinical Impression: Foreign body finger Patient Disposition: Home, Self-Care Time of Disposition Decision: 18:34 Condition: Good Prescriptions / Home Meds: New cephalexin 500 mg capsule 500 mg PO BID 10 Days Qty: 20 0RF No Action oxybutynin chloride 15 mg tablet extended release 24hr 15 mg PO DAILY lisinopril 10 mg tablet 10 mg PO DAILY hydrocodone-acetaminophen 5-325 mg tablet 1 tab PO BID PRN (Reason: pain) Qty: 28 0RF Jardiance 25 mg tablet 25 mg PO DAILY Jardiance 25 mg tablet Print Language: [place] Instructions: Puncture Wound (ED) Referrals: Physician,Non-Staff, MD [Primary Care Provider] - 1 week
[2024-06-02] MEDS: ADACEL DIPH,PERTUSS(ACELL),TET VAC/PF 0.5 ML ADULT SYRINGE IM (18:41)
== END 2024-06-02 18:59 | disposition home or self-care (01) ==
PROVIDERS: Emergency Provider Emergency Medicine
DX: S60.455A Superficial foreign body of left ring finger, initial encounter (principal); W45.8XXA Other foreign body or object entering through skin, initial encounter; Z23 Encounter for immunization
CPT/HCPCS: 90471; 90715; 99284